=== PATIENT | male | born 1950 | race Caucasian/White ===

== ENCOUNTER → 2016-06-24 | Outpatient (CLI) | payer OTHER ==
[2016-06-24 13:38] LABS: HEMATOCRIT 44.8 % (42-52); MEAN CELL VOLUME 87.8 fL (80-100); MEAN CORPUSCULAR HEMOGLOBIN 29.8 pg (25-34); MEAN CORPUSCULAR HGB CONC 33.9 g/dl (32-36); MEAN PLATELET VOLUME 10.3 fL (7.4-10.4); PLATELET COUNT 232 K/uL (130-400); WHITE BLOOD COUNT 5.39 K/uL (4.8-10.8)
[2016-06-24 13:41] LABS: BLOOD UREA NITROGEN 20 mg/dl (7-18); BUN/CREATININE RATIO 21.2 (10-20); CALCIUM 9.2 mg/dl (8.5-10.1); CARBON DIOXIDE 29 mmol/L (21-32); CHLORIDE 103 mmol/L (98-107); CREATININE 0.93 mg/dl (0.60-1.40); GLUCOSE 88 mg/dl (70-99); POTASSIUM 4.1 mmol/L (3.5-5.1); SODIUM 139 mmol/L (136-145)
== END | disposition home or self-care (01) ==
LOC: C.LABMFLN 08:57
PROVIDERS: ATTEND Internal Medicine Cardiovascular Disease
DX: I48.91 Unspecified atrial fibrillation (principal); I10 Essential (primary) hypertension; I42.9 Cardiomyopathy, unspecified; I50.22 Chronic systolic (congestive) heart failure; I25.10 Atherosclerotic heart disease of native coronary artery without angina pectoris

== ENCOUNTER → 2017-01-13 | Outpatient (CLI) | payer OTHER ==
[2017-01-13 13:34] LABS: HEMATOCRIT 44.7 % (42-52); MEAN CELL VOLUME 89.2 fL (80-100); MEAN CORPUSCULAR HEMOGLOBIN 29.3 pg (25-34); MEAN CORPUSCULAR HGB CONC 32.9 g/dl (32-36); MEAN PLATELET VOLUME 10.3 fL (7.4-10.4); PLATELET COUNT 229 K/uL (130-400); RED BLOOD COUNT 5.01 M/uL (4.7-6.1); WHITE BLOOD COUNT 6.19 K/uL (4.8-10.8)
[2017-01-13 14:07] LABS: BLOOD UREA NITROGEN 9 mg/dl (7-18); BUN/CREATININE RATIO 12.7 (10-20); CALCIUM 8.7 mg/dl (8.5-10.1); CARBON DIOXIDE 26 mmol/L (21-32); CHLORIDE 108 mmol/L (98-107); CREATININE 0.73 mg/dl (0.60-1.40); GLUCOSE 87 mg/dl (70-99); POTASSIUM 3.9 mmol/L (3.5-5.1); SODIUM 141 mmol/L (136-145)
== END | disposition home or self-care (01) ==
LOC: C.LABMFLN 08:04
PROVIDERS: ATTEND Internal Medicine Cardiovascular Disease
DX: I10 Essential (primary) hypertension (principal); I48.91 Unspecified atrial fibrillation

== ENCOUNTER → 2017-08-11 | Outpatient (CLI) | payer OTHER ==
[2017-08-11 12:33] LABS: HEMATOCRIT 45.3 % (42-52); HEMOGLOBIN 15.4 g/dL (14.0-18.0); MEAN CELL VOLUME 89.2 fL (80-100); MEAN CORPUSCULAR HEMOGLOBIN 30.3 pg (25-34); MEAN PLATELET VOLUME 10.8 fL (7.4-10.4); PLATELET COUNT 237 K/uL (130-400); RED CELL DISTRIBUTION WIDTH CV 13.1 % (11.5-14.5); RED CELL DISTRIBUTION WIDTH SD 42.8 fL (36.4-46.3)
[2017-08-11 13:41] LABS: ALT/SGPT 29 U/L (12-78); AST/SGOT 20 U/L (15-37); BLOOD UREA NITROGEN 12 mg/dl (7-18); CARBON DIOXIDE 25 mmol/L (21-32); CHOLESTEROL 188 mg/dl (0-200); CREATININE 0.88 mg/dl (0.60-1.40); GLUCOSE 94 mg/dl (70-99); POTASSIUM 3.6 mmol/L (3.5-5.1); SODIUM 137 mmol/L (136-145)
[2017-08-11 13:44] LABS: LDL CHOLESTEROL CALCULATED 106 mg/dl
== END ==
LOC: C.LABMFLN 08:16
PROVIDERS: ATTEND Internal Medicine Cardiovascular Disease
DX: I48.91 Unspecified atrial fibrillation (principal); I11.0 Hypertensive heart disease with heart failure; I42.9 Cardiomyopathy, unspecified; I50.22 Chronic systolic (congestive) heart failure; I25.10 Atherosclerotic heart disease of native coronary artery without angina pectoris

== ENCOUNTER 2022-02-25 13:57 | Inpatient (IN) ==
[2022-02-25] MEDS ORDERED: ONDANSETRON INJ 2 MG/ML 2 ML VIAL IV STA (14:25)
[2022-02-25] MEDS ORDERED: SODIUM CHLORIDE 0.9% 1000ML 1,000 ML IV ONE (14:25)
[2022-02-25] MEDS ORDERED: HYDROmorphone INJ 1 MG/ML SYRINGE IV STA ×2 (14:25→16:34)
--- NOTE | 2022-02-25 14:29 | Emergency Department Note ---
Impression & Plan Cancer-related breakthrough pain, Rectal cancer, Abscess of rectum, Acute dehydration ED Provider Note Name: HERMAN GAYLE Jr Age: 71 Sex: M Arrives Via: Walk-In Informant: Patient,, daughter ED Provider: Jameson Clay MD Chief Complaint: Cancer pain Impression: As per impressions above Medical Decision Making: Very pleasant 71-year-old gentleman diagnosed with rectal cancer little over a year ago had a diverting colostomy at that time. Over the last few months increasing pain despite previous radiation and then this being a second round of chemotherapy. Patient arrives dehydrated malnourished and quite uncomfortable appearing. Does admit that he has not had normal bowel outs throughout the day as well as the fact that he has been having some drainage from his rectum. I will note that rectal exam reveals no concerning abscess externally. Laboratory work-up obtained is mostly unremarkable. He was given a few rounds of IV narcotics with some improvement in his pain and actually able to close his eyes for a little bit. He did get a CT scan of the abdomen pelvis with IV contrast. This reveals extensive metastatic disease which does appear worsening in some areas. There is also a noted fistulizing rectal infection/mass which is likely the cause of this drainage. At this point I do not think that this will be surgically managed and I did discuss it briefly with general surgery who was in agreement with that at this time. For now we will start her on some IV antibiotics but the primary issue is clear that he needs to come in for better pain control and further discussion on what the next best steps will be for him. He and daughter are comfortable this plan. Hospitalist was consulted for further management. Prior Medical Record and Triage/Nursing Notes reviewed by Me Additional history obtained from chart and daughter Differentials:Cancer related pain, infection, obstruction, dehydration, el ectrolyte imbalance, pancreatitis, aortic pathology amongst many other pathologies considered. Vital Signs: reviewed and remarkable for no significant abnormalities Interventions: Normal saline bolus IV, Dilaudid 1 mg IV x2, Zofran IV, Zosyn IV Labs:Reviewed and remarkable for no significant abnormalities Imaging:CT imaging the abdomen pelvis reveals expanding tumor burden, fistulizing abscess/mass in the rectum amongst other findings see radiologist report on chart Consults:Dr Polo HERNANDEZ Hospitalist. Rocio GIBBONS via phone - unlikely surgical management of abscess, agreed with initial abx Plan: Disposition:Hospitalization. Condition: Fair History of Present Illness:71-year-old gentleman arrives for evaluation of abdominal and rectal pain. Patient notes a history of rectal cancer with metastasis throughout abdomen and. Over the last 3 months he has been having increasing abdominal and rectal pain. Last few days it is rapidly worsened. He is on Oxy IR every 4 hours as well as a fentanyl patch. Previously tried tram adol without improvement. He notes in the last day no bowel outs into his ostomy. He previously had radiation therapy and is now on his second round of chemotherapy most recently 7 days ago. Notes mildly associated nausea. He gets lightheaded with standing and has not been eating for the last few days. Notes decreased urinary output because he has not been drinking much. No fevers, chills, chest pain, shortness of breath, syncope, headache, neck pain or other concerning signs or symptoms. No falls or trauma. Oxy IR and fentanyl did not help with pain. Patient notes some periodic drainage that is light from the rectum but this is not regular. ROS: See above HPI for pertinent positives & negatives. A total of 10 systems reviewed and were otherwise negative. Past Medical History:See Below Past Surgical History:See Below Family History:See Below Social History:See Below Home Medications:See Below Allergies:nkda Vitals:Blood Pressure: 114/73, Pulse 99, RR 20, T 36.9C, O2 97% on RA Physical Exam: GENERAL: Patient is unwell/tired/dehydrated appearing and in mild distress. EYES: No scleral icterus, unremarkable pupils. ENT: Mucous membranes dry, no nasal congestion. NECK: No masses appreciated, nomeningismus, trachea is midline. RESPIRATORY: No dyspnea. Clear to auscultation and equal bilaterally. No wheeze, no rhonchi. CARDIOVASCULAR: Regular rate and rhythm.No murmurs, rubs, gallops appreciated. GASTROINTESTINAL: Ostomy mid left abdomen with small amount stool at ostomy but not any in bag. Otherwise abdomen soft, non-tender, no peritonitis.Bowel sounds positive.No masses appreciated. BACK: No midline tenderness, no CVA tenderness EXTREMITIES: Normal motion all extremities, no cyanosis, no edema. NEUROLOGIC: Alert and oriented, no acute motor or sensory deficits, no focal weakness, cranial nerves grossly intact. SKIN: No rash, no jaundice, no diaphoresis. PSYCH: Appropriate GCS: 15 ED Course: Times/Reassessments: Patient gradually becoming more comfortable stable and actually able to close his eyes for a little while. Jameson Clay MD Past Med/Surg History Medical History Alcoholism Quit 2014 Atrial fibrillation status post cardioversion Cardioversion with amiodarone 2014 On warfarin daily--follows with Dr. Dominguez CAD (coronary artery disease) Nonobstructive per 2014 cardiac cath per cardio records CHF (congestive heart failure) Dyslipidemia Hearing deficit Hypertension care home (current) use of anticoagulants Rectal adenocarcinoma (01/26/21) Reason for port placement Thrombus of left atrial appendage Noted in 2014 - on Warfarin since that time Surgical History History of cardiac cath (~2014) no stents History of oral surgery Hx of colonoscopy Port-A-Cath in place (03/12/21) Access port placement. Dr. Nogueira 03/12/21 S/P colostomy Diagnostic laparoscopy, laparoscopic diverting loop sigmoid colostomy on 01/30/[address] 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 Required: No Beliefs That Will Affect Care: None marital status: Current Living Situation: Alone Current Living Situation Comment: Lives alone in 2 story house, daughter lives close current occupational status: retired current occupation: [employer] work How many Children do You have: 1 Other Information That Helps Us Care for You: No Feels Safe at Home: Yes Safety Concerns: Feels Safe At This Time Childhood Exposure to Second-Hand Smoke: No caffeine: No during the past year weight has: decreased > 10 lbs Seatbelt Use: never Assistive Devices: None Allergies Allergies Allergy/AdvReac Type Severity Reaction Status Date / Time No Known Allergies Allergy Verified 02/25/22 15:12 Home Meds Home Medications Medication Instructions Recorded Confirmed acetaminophen 325 mg tablet 650 mg PO Q6H PRN Pain 03/01/21 02/25/22 (Tylenol) [id number] C-Mn 500 1 cap PO DAILY 09/04/21 02/25/22 mg-400 mg capsule (Glucosamine Chondroitin Maximum Strength) ondansetron HCl 8 mg tablet 8 mg PO Q8H PRN NAUSEA/VOMITING 09/04/21 02/25/22 prochlorperazine maleate 10 mg 10 mg PO Q6H PRN NAUSEA/VOMITING 09/04/21 02/25/22 tablet (Compazine) atorvastatin 10 mg tablet 10 mg PO 3XWK 02/25/22 02/25/22 fentanyl 25 mcg/hr transdermal 25 mcg transdermal .Q3DAYS 02/25/22 02/25/22 patch nystatin 100,000 unit/gram topical 1 applic topical BID PRN Skin 02/25/22 02/25/22 powder Irritation oxycodone 5 mg tablet 5 mg PO .Q4-6HR PRN Pain 02/25/22 02/25/22 silver sulfadiazine 1 % topical 1 applic topical BID PRN Skin 02/25/22 02/25/22 cream (Silvadene) Irritation Previous Rx's Medication Instructions Recorded furosemide 40 mg tablet 40 mg PO QAM #90 tabs 04/02/21 spironolactone 25 mg tablet 25 mg PO DAILY #90 tabs 04/02/21 apixaban 5 mg tablet (Eliquis) 5 mg PO BID #180 tabs 10/02/21 lisinopril 5 mg tablet 5 mg PO DAILY #90 tabs 02/25/22 metoprolol succinate 200 mg 200 mg PO QAM #90 tabs 02/25/22 tablet,extended release 24 hr Results & Data (ED) Vital Signs Vital Signs - 24 hr 02/25/22 19:00 02/25/22 19:38 02/25/22 20:00 Temperature 36.6 C Temperature Source Oral Pulse Rate 70 Pulse Rate [Finger] 65 64 Pulse Rhythm [Finger] Regular Regular Pulse Strength [Finger] Normal Normal Respiratory Rate 16 19 18 Respiratory Effort / Characteristics Non-Labored Non-Labored Respiratory Depth Normal Normal Respiratory Pattern Regular Regular Blood Pressure 119/65 Blood Pressure [Right Arm] 119/65 121/70 Blood Pressure Mean [Right Arm] 83 87 Blood Pressure Position [Right Arm] Lying Sitting Pulse Oximetry 98 98 98 Oxygen Delivery Method Room Air Room Air Laboratory Data Result diagrams: 02/26/22 09:54 02/26/22 09:54 Lab Results 02/25/22 02/25/22 02/25/22 Range/Units 14:55 14:55 15:06 WBC 3.38 L (4.8-10.8) K/ul RBC 3.95 L (4.63-6.08) M/uL Hgb 11.8 L (14.0-18.0) g/dl POC Hgb 11.9 L (14.0-18.0) g/dl Hct 34.7 L (40.1-51.0) % POC Hct 35 L (42-52) % MCV 87.8 (80.0-100.0) fL MCH 29.9 (25.0-34.0) pg MCHC 34.0 (32.0-36.0) g/dL RDW Std Deviation 40.6 (36.4-46.3) fL RDW Coeff of Prashant 13.1 (11.5-14.5) % Plt Count 261 (130-400) K/uL MPV 8.9 L (9.4-12.4) fL Immature Gran % (Auto) 0.6 % Neut % (Auto) 72.7 % Lymph % (Auto) 16.6 % Fajardo % (Auto) 8.3 % Eos % (Auto) 1.5 % Baso % (Auto) 0.3 % Neut # (Auto) 2.46 (1.4-6.5) K/uL Lymph # (Auto) 0.56 L (1.2-3.4) K/uL Fajardo # (Auto) 0.28 (0.24-0.82) K/uL Eos # (Auto) 0.05 (0-0.50) K/uL Baso # (Auto) 0.01 (0-0.2) K/uL Immature Gran # (Auto) 0.02 (0.00-0.02) K/uL POC Sodium 132 L (135-144) mmol/L Sodium 132 L (136-145) mmol/L POC Potassium 4.0 (3.3-5.0) mmol/L Potassium 4.0 (3.5-5.1) mmol/L POC Chloride 96 L (101-112) mmol/L Chloride 98 (98-107) mmol/L Carbon Dioxide 27 (21-32) mmol/L POC Total CO2 25 (24-31) mmol/L Anion Gap 7 (3-11) POC Anion Gap 16.0 (16-25) mmol/L POC BUN 16 (7-18) mg/dl BUN 16 (6-23) mg/dl Creatinine 0.73 (0.6-1.4) mg/dl POC Creatinine 0.8 (0.6-1.3) mg/dl Est Cr Clr Drug Dosing 90.8 ml/min Est GFR ( Amer) 106.7 ml/min Est GFR (Non-Af Amer) 92.0 ml/min BUN/Creatinine Ratio 21.9 H (10-20) Glucose 100 H (70-99(Fasting)) mg/dl POC Glucose (other) 101 H (70-99) mg/dl Calcium 9.2 (8.5-10.1) mg/dl POC Ioniz Calcium Francisca 1.19 (1.12-1.32) mmol/l Magnesium 2.1 (1.7-2.4) mg/dl Total Bilirubin 0.4 (0.2-1.0) mg/dl Direct Bilirubin 0.1 (0-0.2) mg/dl AST 13 (13-39) U/L ALT 11 (7-52) U/L Alkaline Phosphatase 115 H (34-104) U/L Troponin I High Sens 6.1 (0-20) pg/ml Total Protein 7.0 (6.0-8.3) gm/dl Albumin 3.8 (3.4-5.0) gm/dl Lipase 32 (11-82) U/L Administered Medications Apixaban (Apixaban 5 Mg Tablet) 5 mg PO BID EARLENE Stop: 03/27/22 20:59 Last Admin: 02/26/22 07:47 Dose: 5 mg Documented By: Admin: 02/25/22 21:41 Dose: 5 mg Documented By: KENNY Furosemide (Furosemide 40 Mg Tab) 40 mg PO QA EARLENE Stop: 03/28/22 08:59 Last Admin: 02/26/22 07:47 Dose: 40 mg Documented By: JOCE Piperacillin Sod/Tazobactam (Sod 3.375 gm/ Dextrose) 115 mls @ 28.75 mls/hr IV Q8H [facility]; Protocol Stop: 03/07/22 19:59 Last Infusion: 02/26/22 16:56 Dose: 0 mls/hr Documented By: Admin: 02/26/22 12:40 Dose: 28.8 mls/hr Documented By: Infusion: 02/26/22 09:24 Dose: 0 mls/hr Documented By: Admin: 02/26/22 05:15 Dose: 28.8 mls/hr Documented By: Infusion: 02/26/22 01:03 Dose: 0 mls/hr Documented By: Admin: 02/25/22 21:38 Dose: 28.8 mls/hr Documented By: KENNY Lisinopril (Lisinopril 5 Mg Tab) 5 mg PO DAILY [facility] Stop: 03/28/22 08:59 Last Admin: 02/26/22 07:47 Dose: 5 mg Documented By: JOCE Metoprolol Succinate (Metoprolol Succ 50mg Ext Rel Tab) 200 mg PO QAM [facility] Stop: 03/28/22 08:59 Last Admin: 02/26/22 07:48 Dose: Not Given Documented By: JOCE Miscellaneous (Check Fentanyl Patch Placement) 1 each N/A QS [facility] Stop: 03/28/22 00:00 Last Admin: 02/26/22 15:24 Dose: 1 each Documented By: Admin: 02/26/22 07:48 Dose: 1 each Documented By: Admin: 02/25/22 23:13 Dose: 1 each Documented By: KENNY Morphine Sulfate (Morphine Sulfate 2 Mg/Ml Carp) 2 mg IV Q30M PRN PRN Reason: Pain or dyspnea Stop: 03/12/22 14:24 Last Admin: 02/26/22 14:54 Dose: 2 mg Documented By: JOCE Spironolactone (Spironolactone 25 Mg Tab) 25 mg PO DAILY [facility] Stop: 03/28/22 08:59 Last Admin: 02/26/22 07:48 Dose: 25 mg Documented By: JOCE Discontinued Medications Hydromorphone HCl (Hydromorphone Inj 1 Mg/Ml Syringe) 1 mg IV NOW STA Stop: 02/25/22 14:26 Last Admin: 02/25/22 14:55 Dose: 1 mg Documented By: BK Hydromorphone HCl (Hydromorphone Inj 1 Mg/Ml Syringe) 1 mg IV NOW STA Stop: 02/25/22 16:35 Last Admin: 02/25/22 17:15 Dose: 1 mg Documented By: BK Hydromorphone HCl (Hydromorphone Inj 0.5 Mg/0.5 Ml Syr) 0.5 mg IV Q4H PRN PRN Reason: Severe Pain Stop: 03/11/22 20:07 Last Admin: 02/26/22 12:44 Dose: 0.5 mg Documented By: Admin: 02/26/22 07:46 Dose: 0.5 mg Documented By: Admin: 02/26/22 01:48 Dose: 0.5 mg Documented By: Admin: 02/25/22 21:41 Dose: 0.5 mg Documented By: KENNY Sodium Chloride (Nss 1000ml) 1,000 mls @ 999 mls/hr IV .Q1H1M ONE Stop: 02/25/22 15:25 Last Infusion: 02/25/22 18:52 Dose: 0 mls/hr Documented By: Admin: 02/25/22 14:58 Dose: 999 mls/hr Documented By: BK Piperacillin Sod/Tazobactam Sod (Zosyn) 4.5 gm in 120 mls @ 240 mls/hr IV NOW ONE Stop: 02/25/22 17:03 Last Infusion: 02/25/22 17:44 Dose: 0 mls/hr Documented By: Admin: 02/25/22 17:14 Dose: 240 mls/hr Documented By: BK Lactated Ringer's (Lr) 1,000 mls @ 80 mls/hr IV .[id number] EARLENE Stop: 02/26/22 06:29 Last Infusion: 02/26/22 08:53 Dose: 0 mls/hr Documented By: Admin: 02/25/22 20:21 Dose: 80 mls/hr Documented By: KENNY Ioversol (Optiray 350 100ml) 89 ml IV ONCE ONE Stop: 02/25/22 15:45 Last Admin: 02/25/22 15:45 Dose: 89 ml Documented By: ELIZABETH Ondansetron HCl (Ondansetron Inj 2 Mg/Ml 2 Ml Vial) 4 mg IV NOW STA Stop: 02/25/22 14:26 Last Admin: 02/25/22 14:58 Dose: 4 mg Documented By: BK Imaging Data Radiologist's Impression: Abdomen/Pelvis CT 02/25/22 14:[address] WITH IV CONTRAST CT DOSE: 318.44 mGy.cm HISTORY: rectal cancer with worsening generalized abdominal pain. No ostomy stool x24 h TECHNIQUE: Multiaxial CT images of the abdomen and pelvis were performed following the use of intravenous contrast. A dose lowering technique was utilized adhering to the principles of ALARA. COMPARISON STUDY: Abdomen and pelvis CT FINDINGS: Interval development of multiple subcentimeter pulmonary nodules at the lung bases consistent with metastatic disease. Dominant nodule within the left lower lobe on image 31 measures 6 mm. Small focal area of bony erosion within the right T12 transverse process on image 103. This is new from the prior study and is concerning for metastatic disease. There are new scattered irregular hypodense lesions within the liver with the largest at the left he patic dome measuring 3 cm. This is consistent with hepatic metastatic disease. The gallbladder, spleen, right adrenal gland, and pancreas are unremarkable. No hydronephrosis. Stable partially calcified left renal cyst. Slight increase in size in a 2.6 cm left adrenal gland nodule, previously measuring 3 cm. The main portal vein is patent. No retroperitoneal lymphadenopathy. The left lower quadrant colostomy again noted. The bladder is mildly distended. The prostate gland remains enlarged. Slight decrease in size in the ill-defined left rectal mass compared to the prior study. However, there has been interval of a focal fistula tract within the anterior wall the rectum on image 419 with an adjacent 3.2 x 2.3 cm contains gas and fluid collection anterior to the rectum on image 543. This is consistent with a contained perforation/abscess. A few subcentimeter perirectal lymph nodes are again noted consistent with metastatic disease. Colonic diverticulosis. No evidence for acute diverticulitis. Moderate well-formed stool within the colon. No evidence for bowel obstruction. Normal appendix. Normal caliber abdominal aorta. IMPRESSION: 1. Interval development of pulmonary and hepatic metastatic disease. 2. There is a 3.2 x 2.3 cm focal contained perforation/abscess within the anterior perirectal space secondary to a small fistulous tract within the anterior wall the rectum as described above. This is likely due to the u lcerating tumor at this location. 3. The rectal mass appears to have slightly decreased in size. Subcentimeter perirectal lymph nodes again noted. 4. Slight decrease in size in the left adrenal gland mass which measures 2.6 cm. 5. Focal erosion within the right T12 transverse process likely representing metastatic disease. 6. Additional findings as described above. ACT 112: Negative or not required by law. Electronically signed by: Pankaj Cantu M.D. 02/25/2022 4:11 PM Discharge Plan Visit Data Chief Complaint: Rectal Pain Stated Complaint: UNCONTROLLED RECTAL PAIN,STAGE 4 CANCER ED Provider: Jameson Clay Discharge Problem: Cancer-related breakthrough pain, Rectal cancer, Abscess of rectum, Acute dehydration Patient Disposition: Admitted As Inpatient Discharge Instructions Interventions: ED AMA/LWBS Discharge Assessment Last Done: 02/25/22 19:38
[2022-02-25 15:11] LABS: Basophils # (auto) 0.01 K/uL (0-0.2); Basophils % (auto) 0.3 %; Eosinophils # (auto) 0.05 K/uL (0-0.50); Eosinophils % (auto) 1.5 %; Hematocrit (blood only) 34.7 % (40.1-51.0); Hemoglobin 11.8 g/dl (14.0-18.0); Immature Granulocytes # (auto) 0.02 K/uL (0.00-0.02); Immature Granulocytes % (auto) 0.6 %; Lymphocytes # (auto) 0.56 K/uL (1.2-3.4); Lymphocytes % (auto) 16.6 %; Mean Corpuscular Hemoglobin 29.9 pg (25.0-34.0); Mean Corpuscular Volume 87.8 fL (80.0-100.0); Mean Platelet Volume 8.9 fL (9.4-12.4); Monocytes # (auto) 0.28 K/uL (0.24-0.82); Monocytes % (auto) 8.3 %; Neutrophils # (auto) 2.46 K/uL (1.4-6.5); Neutrophils % (auto) 72.7 %; Platelet Count 261 K/uL (130-400); RDW Coefficient of Variation 13.1 % (11.5-14.5); RDW Standard Deviation 40.6 fL (36.4-46.3); Red Blood Count 3.95 M/uL (4.63-6.08); White Blood Count 3.38 K/ul (4.8-10.8)
[2022-02-25 15:21] LABS: iSTAT Creatinine 0.8 mg/dl (0.6-1.3); iSTAT Hemoglobin 11.9 g/dl (14.0-18.0); iSTAT Ionized Calcium 1.19 mmol/l (1.12-1.32)
[2022-02-25 15:34] LABS: Albumin Level 3.8 gm/dl (3.4-5.0); BUN Creatinine Ratio 21.9 (10-20); Bilirubin Direct 0.1 mg/dl (0-0.2); Bilirubin,Total 0.4 mg/dl (0.2-1.0); Calcium 9.2 mg/dl (8.5-10.1); Creatinine Clr Calc Pharmacy 90.8 ml/min; Est GFR (African American) 106.7 ml/min; Magnesium 2.1 mg/dl (1.7-2.4)
[2022-02-25 15:41] LABS: Troponin I High Sensitivity 6.1 pg/ml (0-20)
[2022-02-25] MEDS ORDERED: OPTIRAY 350 100ml IV ONE (15:44)
--- NOTE | 2022-02-25 16:12 | CT Scan Report ---
ABDOMEN AND PELVIS CT WITH IV CONTRAST CT DOSE: 318.44 mGy.cm HISTORY: rectal cancer with worsening generalized abdominal pain. No ostomy stool x24 h TECHNIQUE: Multiaxial CT images of the abdomen and pelvis were performed following the use of intrave nous contrast. A dose lowering technique was utilized adhering to the principles of ALARA. COMPARISON STUDY: Abdomen and pelvis CT FINDINGS: Interval development of multiple subcentimeter pulmonary nodules at the lung bases consiste nt with metastatic disease. Dominant nodule within the left lower lobe on image 31 measures 6 mm. Sma ll focal area of bony erosion within the right T12 transverse process on image 103. This is new from the prior study and is concerning for metastatic disease. There are new scattered irregular hypodense lesions within the liver with the largest at the left hepatic dome measuring 3 cm. This is consisten t with hepatic metastatic disease. The gallbladder, spleen, right adrenal gland, and pancreas are unr emarkable. No hydronephrosis. Stable partially calcified left renal cyst. Slight increase in size in a 2.6 cm left adrenal gland nodule, previously measuring 3 cm. The main portal vein is patent. No ret roperitoneal lymphadenopathy. The left lower quadrant colostomy again noted. The bladder is mildly di stended. The prostate gland remains enlarged. Slight decrease in size in the ill-defined left rectal mass compared to the prior study. However, there has been interval of a focal fistula tract within th e anterior wall the rectum on image 419 with an adjacent 3.2 x 2.3 cm contains gas and fluid collecti on anterior to the rectum on image 543. This is consistent with a contained perforation/abscess. A fe w subcentimeter perirectal lymph nodes are again noted consistent with metastatic disease. Colonic di verticulosis. No evidence for acute diverticulitis. Moderate well-formed stool within the colon. No e vidence for bowel obstruction. Normal appendix. Normal caliber abdominal aorta. IMPRESSION: 1. Interval development of pulmonary and hepatic metastatic disease. 2. There is a 3.2 x 2.3 cm focal contained perforation/abscess within the anterior perirectal space s econdary to a small fistulous tract within the anterior wall the rectum as described above. This is l ikely due to the ulcerating tumor at this location. 3. The rectal mass appears to have slightly decreased in size. Subcentimeter perirectal lymph nodes a gain noted. 4. Slight decrease in size in the left adrenal gland mass which measures 2.6 cm. 5. Focal erosion within the right T12 transverse process likely representing metastatic disease. 6. Additional findings as described above. ACT 112: Negative or not required by law. Electronically signed by: Pankaj Cantu M.D. 02/25/2022 4:11 PM
[2022-02-25] MEDS ORDERED: PIPERACILLIN/TAZOBACTAM 4.5 GM/120 ML BAG IV ONE (16:34)
--- NOTE | 2022-02-25 17:28 | History & Physical Report ---
Date of Service February 25, 2022 Assessment & Plan (1) Rectal adenocarcinoma: Plan: - New burning rectal pain x7 days following chemotherapy. Recently starting on fentanyl patches and oxycodone without relief of pain. Presented with 10/10 pain, now 3/10 after IV Dilaudid. - Continue fentanyl patches and oxycodone with IV Dilaudid as needed. - Stage 3, s/p diverting colostomy, radiation, chemotherapy most recently 7 days ago. - CT A/P: contained perforation/abscess due to ulcerating tumor. Interval development of hepatic metastatic disease rectal mass slightly decreased in size, adrenal gland mass slightly decreased in size. Closure within the right T12 transverse process likely representing metastatic disease. - Case discussed with general surgery, do not feel surgical intervention warranted regarding potential abscess. - No evidence of bowel obstruction. There is a moderate amount of well-formed stool within the colon. - Previously loose stools 2/2, taking Imodium 3 times daily plus Lomotil as needed. - Order MiraLAX, IVF for hydration. - Palliative care consult placed to discuss pain management options moving forward. Will get surgery consult and start abx. Get cultures. (2) Atrial fibrillation status post cardioversion: Plan: - s/p cardioversion. Has remained in NSR. - Continue Eliquis twice daily, metoprolol 200 mg daily. (3) CAD (coronary artery disease): Plan: - Nonobstructive. Continue lisinopril, metoprolol, statin. (4) CHF (congestive heart failure): Plan: - With nonischemic cardiomyopathy likely 2/2 oh previous alcohol use disorder +/- A. fib. - Echo January 2021: Normal LV size and systolic function without wall motion abnormalities. EF 65%. No LVH. Grade 1 diastolic dysfunction of left ventricle. - Continue metoprolol, spironolactone, Lasix, lisinopril. Plan - Admit to med/surg. - SCDs, continue on Eliquis for VTE ppx. - Full Code. History of Present Illness Chief Complaint: Rectal pain x1 week Primary Care Provider: Emma Olivarez DO Rigoberto Gold is a 71-year-old male with metastatic colorectal cancer, CAD, diastolic HF and ischemic cardiomyopathy, and history of alcohol use disorder who is presenting today with worsening pain. 7 days ago, he underwent a round of chemotherapy and since then has developed burning pain sensation in his rectum. It is been incredibly comfortable, 10/10 at home and is unable to rest because of it. His oncologist released recently prescribed him a fentanyl patch and oxycodone immediate release which she has been taking every 4 hours with minimal alleviation of the pain. Due to the severity of his pain, he has not had much of an appetite and has been doing poorly with eating and drinking at home. He has an ostomy, without pain around the site, but does note decreased output which he attributes to poor intake. He has not had any fever or chills, melena or hematochezia, or abdominal pain. Upon arrival to the ED, he is mildly tachycardic otherwise vital signs within normal limits and stable. Labs significant for leukopenia and anemia, but fairly stable from previous labs. Tends to have a chronically low sodium, it is 132 today. Otherwise all labs within normal limits. CT of the abdomen and pelvis shows an interval development of pulmonary and hepatic metastatic disease, as well as a focal contained perforation/abscess in the anterior pararectal space, likely due to ulcerating tumor. Rectal mass and adrenal gland mass have decreased in size. There is focal erosion within the right T12 transverse process likely representing metastatic disease. Allergies Allergy/AdvReac Type Severity Reaction Status Date / Time No Known Allergies Allergy Verified 02/25/22 15:12 Home Medications Medication Instructions Recorded Confirmed Type acetaminophen 325 mg tablet 650 mg PO Q6H PRN Pain 03/01/21 02/25/22 History (Tylenol) furosemide 40 mg tablet 40 mg PO QAM #90 tabs 04/02/21 02/25/22 Rx spironolactone 25 mg tablet 25 mg PO DAILY #90 tabs 04/02/21 02/25/22 Rx [id number] C-Mn 500 1 cap PO DAILY 09/04/21 02/25/22 History mg-400 mg capsule (Glucosamine Chondroitin Maximum Strength) ondansetron HCl 8 mg tablet 8 mg PO Q8H PRN NAUSEA/VOMITING 09/04/21 02/25/22 History prochlorperazine maleate 10 mg 10 mg PO Q6H PRN NAUSEA/VOMITING 09/04/21 02/25/22 History tablet (Compazine) apixaban 5 mg tablet (Eliquis) 5 mg PO BID #180 tabs 10/02/21 02/25/22 Rx atorvastatin 10 mg tablet 10 mg PO 3XWK 02/25/22 02/25/22 History fentanyl 25 mcg/hr transdermal 25 mcg transdermal .Q3DAYS 02/25/22 02/25/22 History patch lisinopril 5 mg tablet 5 mg PO DAILY #90 tabs 02/25/22 02/25/22 Rx metoprolol succinate 200 mg 200 mg PO QAM #90 tabs 02/25/22 02/25/22 Rx tablet,extended release 24 hr nystatin 100,000 unit/gram topical 1 applic topical BID PRN Skin 02/25/22 02/25/22 History powder Irritation oxycodone 5 mg tablet 5 mg PO .Q4-6HR PRN Pain 02/25/22 02/25/22 History silver sulfadiazine 1 % topical 1 applic topical BID PRN Skin 02/25/22 02/25/22 History cream (Silvadene) Irritation Past Med/Surg History Medical History Alcoholism Quit 2014 Atrial fibrillation status post cardioversion Cardioversion with amiodarone 2014 On warfarin daily--follows with Dr. 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 Dr. Nogueira 03/12/21 S/P colostomy Diagnostic laparoscopy, laparoscopic diverting loop sigmoid colostomy on 01/30/[address] Concepc[place] [facility] [place] History Father , 68yo Alcoholism Hypertension Stroke Smoker Mother , 72yo COPD (chronic obstructive pulmonary disease) Heart disease Sister COPD (chronic obstructive pulmonary disease) Hypertension Sister Glaucoma Daughter Cardiomyopathy Heart disease Aunt Stroke Other No family history of adverse response to anesthesia Social History Smoking Status: Never smoker Tobacco Type: Smokeless Tobacco (Dip or Chew) Second Hand Exposure: Yes; Hx Alcohol Use: No Hx Substance Use: No (Quit drinking 07/22/2014) Preferred Language: German Communication Ability: Effective Tie Fastener Required: No Beliefs That Will Affect Care: None marital status: Current Living Situation: Alone Current Living Situation Comment: Sometimes his sister stays with him current occupational status: retired current occupation: [employer] work How many Children do You have: 1 Feels Safe at Home: Yes Childhood Exposure to Second-Hand Smoke: No caffeine: No during the past year weight has: decreased > 10 lbs Seatbelt Use: never Assistive Devices: Glasses Review of Systems Review of Systems: Constitutional: anorexia and increased fatigue x 1 week; no fever/chills, weakness, myalgias, night sweats Eyes: No diplopia, no worsening or blurred vision ENT: normal hearing, no trouble swallowing Respiratory: No cough, sputum, dyspnea at rest or on exertion Cardiovascular: No chest pain, tightness or palpitations Abdomen: burning rectal pain x 1 week with decreased otomy output x1 week; no abdominal pain, nausea, vomiting, or diarrhea : Denies dysuria, hematuria, increased urgency/frequency, urinary retention Musculoskeletal: No joint pain, calf pain, swelling Neurologic: No weakness, numbness/tingling, or balance problems Psychiatric: No anxiety or depression Skin: No rash or itch Physical Exam Physical Exam: General: awake, alert, no apparent distress Head: Normocephalic, atraumatic ENT: PERRL, EOMI, no pharyngeal exudate, mucous membranes moist Chest: Clear to auscultation, on room air, no adventitious breath sounds Cardiac: Regular rate and rhythm, no murmur, no JVD, normal peripheral pulses, good capillary refill Abdominal: LLQ ostomy empty, with parastomal hernia, unchanged; without surrounding erythema or edema; NABS x 4 quadrants, soft, nontender to palpation, no rebound, guarding or tenderness Extremities: Normal inspection, no peripheral edema or erythema, calfs nontender to palpation Psych: Normal mood and affect Neuro: AAO x 3, strength intact bilaterally and rated 5/5, no motor deficits, speech is clear, no peripheral sensory deficits Skin: no rash or erythema Results & Data Results & Data ([facility]) Vital Signs (Past 12 Hours) Vital Signs Temp Pulse Resp BP BP Pulse Ox O2 Del Method 02/25/22 15:58 15 110/61 96 Room Air 02/25/22 13:58 14 110/61 95 Room Air 02/25/22 14:03 36.9 C 99 H 20 114/73 97 Room Air Laboratory Results Abnormal lab results 02/25/22 02/25/22 02/25/22 Range/Units 14:55 14:55 15:06 WBC 3.38 L (4.8-10.8) K/ul RBC 3.95 L (4.63-6.08) M/uL Hgb 11.8 L (14.0-18.0) g/dl POC Hgb 11.9 L (14.0-18.0) g/dl Hct 34.7 L (40.1-51.0) % POC Hct 35 L (42-52) % MPV 8.9 L (9.4-12.4) fL Lymph # (Auto) 0.56 L (1.2-3.4) K/uL POC Sodium 132 L (135-144) mmol/L Sodium 132 L (136-145) mmol/L POC Chloride 96 L (101-112) mmol/L BUN/Creatinine Ratio 21.9 H (10-20) Glucose 100 H (70-99(Fasting)) mg/dl POC Glucose (other) 101 H (70-99) mg/dl Alkaline Phosphatase 115 H (34-104) U/L Diagnostic Findings Abdomen/Pelvis CT 02/25/22 14:[address] WITH IV CONTRAST CT DOSE: 318.44 mGy.cm HISTORY: rectal cancer with worsening generalized abdominal pain. No ostomy stool x24 h TECHNIQUE: Multiaxial CT images of the abdomen and pelvis were performed following the use of intravenous contrast. A dose lowering technique was utilized adhering to the principles of ALARA. COMPARISON STUDY: Abdomen and pelvis CT FINDINGS: Interval development of multiple subcentimeter pulmonary nodules at the lung bases consistent with metastatic disease. Dominant nodule within the left lower lobe on image 31 measures 6 mm. Small focal area of bony erosion within the right T12 transverse process on image 103. This is new from the prior study and is concerning for metastatic disease. There are new scattered irregular hypodense lesions within the liver with the largest at the left hepatic dome measuring 3 cm. This is consistent with hepatic metastatic disease. The gallbladder, spleen, right adrenal gland, and pancreas are unremarkable. No hydronephrosis. Stable partially calcified left renal cyst. Slight increase in size in a 2.6 cm left adrenal gland nodule, previously measuring 3 cm. The main portal vein is patent. No retroperitoneal lymphadenopathy. The left lower quadrant colostomy again noted. The bladder is mildly distended. The prostate gland remains enlarged. Slight decrease in size in the ill-defined left rectal mass compared to the prior study. However, there has been interval of a focal fistula tract within the anterior wall the rectum on image 419 with an adjacent 3.2 x 2.3 cm contains gas and fluid collection anterior to the rectum on image 543. This is consistent with a contained perforation/abscess. A few subcentimeter perirectal lymph nodes are again noted consistent with metastatic disease. Colonic diverticulosis. No evidence for acute diverticulitis. Moderate well-formed stool within the colon. No evidence for bowel obstruction. Normal appendix. Normal caliber abdominal aorta. IMPRESSION: 1. Interval development of pulmonary and hepatic metastatic disease. 2. There is a 3.2 x 2.3 cm focal contained perforation/abscess within the anterior perirectal space secondary to a small fistulous tract within the anterior wall the rectum as described above. This is likely due to the ulcerating tumor at this location. 3. The rectal mass appears to have slightly decreased in size. Subcentimeter perirectal lymph nodes again noted. 4. Slight decrease in size in the left adrenal gland mass which measures 2.6 cm. 5. Focal erosion within the right T12 transverse process likely representing metastatic disease. 6. Additional findings as described above. ACT 112: Negative or not required by law. Electronically signed by: Pankaj Cantu M.D. 02/25/2022 4:11 PM Code Status & VTE Plan Code Status Full Code. Supervising Physician Co-Signing Physician Notes I supervised Dahlia Red PA-C on this admission. I interviewed and examined the patient independently of her. The plan is as written in the note except for any following changes/exceptions: 71yo M w/ hx of rectal adenocarcinoma with worsening pain. CT scan with new "3.2 x 2.3 cm focal contained perforation/abscess within the anterior perirectal space secondary to a small fistulous tract within the anterior wall the rectum". Will get surgery consult and start abx. Get cultures. PG Care Time/CCT Total # of Minutes Spent Total Time Spent with Patient: Total time spent is greater than 50% in coordination of care (as documented) at patient's floor/unit and/or counseling patient: Coding Level of Care Code 11156 Initial Inpt Care Lvl 3 Diagnoses Rectal adenocarcinoma C20 Atrial fibrillation status post cardioversion I48.91 CAD (coronary artery disease) I25.10 CHF (congestive heart failure) I50.9
[2022-02-25] MEDS ORDERED: LACTATED RINGER'S 1,000 ML IV SCH (18:00)
[2022-02-25] MEDS ORDERED: SILVER SULFADIAZINE 1% CR 50 GM JAR TOP PRN (20:08)
[2022-02-25] MEDS ORDERED: ACETAMINOPHEN 325 MG TAB PO PRN (20:08)
[2022-02-25] MEDS ORDERED: HYDROmorphone INJ 0.5 MG/0.5 ML SYR IV PRN (20:08)
[2022-02-25] MEDS ORDERED: POLYETHYLENE (MIRALAX) 17 GM PACK PO PRN (20:08)
[2022-02-25] MEDS ORDERED: ONDANSETRON INJ 2 MG/ML 2 ML VIAL IV PRN (20:08)
[2022-02-25] MEDS ORDERED: MAGNESIUM HYDROXIDE SUSP 30 ML UDC PO PRN (20:08)
[2022-02-25] MEDS ORDERED: oxyCODONE HCL IR 5 MG TAB (IMMEDIATE RELEASE) PO PRN (20:08)
[2022-02-25] MEDS ORDERED: NON-FORMULARY MEDICATION (Ondansetron Hcl 8 mg tablet) PO PRN (20:08)
[2022-02-25] MEDS ORDERED: PROCHLORPERAZINE MALEATE 10 MG TAB PO PRN (20:08)
[2022-02-25] MEDS ORDERED: NYSTATIN POWDER 15GM BTL EXT PRN (20:08)
--- NOTE | 2022-02-25 21:31 | Surgery Consultation ---
Date of Consultation February 25, 2022 Assessment & Plan (1) Rectal adenocarcinoma: Patient has been admitted by the hospitalist service. We recommend proceeding as follows: Recommend continuing hydration with IV fluids Recommend continuing broad-spectrum antibiotics in form of Zosyn which has been initiated. The area in question on patient's CAT scan may represent either an abscess or necrotic tumor. Would recommend conservative treatment with IV fluids and antibiotics as noted above. If patient would require any type of surgical drainage he would need to be transferred to the center where he had his previous surgeries performed. Supervising Physician Co-Signing Physician Notes Patient discussed with VERONICA Stack, films reviewed, agree with above. 71 y/o male with metastatic rectal cancer s/p diverting colostomy, neoadjuvant rad/chemo, currently on chemo, last dose 7 days ago. Now with perirectal pain. CT with necrotic tumor vs. contained perf/abscess. Recommend abx, hold coumadin. Recommend discuss with colorectal surgeon tomorrow. If drainage needed, likely transrectal or percutaneous, not at this facility. History of Present Illness Reason for Consultation: Rectal abscess Attending Physician: Khanh Cuellar MD History of Present Illness This is a 71-year-old male with a history of metastatic colorectal cancer. Patient presented to the emergency department secondary to worsening rectal pain. The patient notes that he underwent chemotherapy approximately 7 days ago and since that time he developed some burning type pain in his rectum. He notes it has become increasingly uncomfortable over the past several days. Due to the severity of pain he presented to the emergency department. The patient denies any abdominal pain. He denies any nausea or vomiting. He denies any fevers, shakes, or chills. It is nowhere the mention that the patient has already had a GI tract diversion as he has an ostomy. In the emergency department patient had labs and imaging which I independent reviewed. A CT scan of the abdomen and pelvis showed the patient had pulmonary and hepatic metastatic disease. There is concern for 3.2 x 2.3 cm foci of contained perforation or abscess in the anterior perirectal space. A CBC revealed white blood cell count was 3.3. Hemoglobin and hematocrit were 11.8 and 34.7. Platelet count was 261,000. Chemistry profile showed sodium was 132 with a normal potassium. BUN and creatinine were both within the normal range. A COVID test was noted be negative. Since arrival to the emergency department the patient has been receiving antibiotics in form of Zosyn and is receiving intravenous fluids. He is also been provided with analgesics. At the time of my interview the patient was resting comfortably in bed in no distress. Allergies Allergy/AdvReac Type Severity Reaction Status Date / Time No Known Allergies Allergy Verified 02/25/22 15:12 Home Medications Medication Instructions Recorded Confirmed Type acetaminophen 325 mg tablet 650 mg PO Q6H PRN Pain 03/01/21 02/25/22 History (Tylenol) furosemide 40 mg tablet 40 mg PO QAM #90 tabs 04/02/21 02/25/22 Rx spironolactone 25 mg tablet 25 mg PO DAILY #90 tabs 04/02/21 02/25/22 Rx iwrebvqxtmk-[id number]-rvr C-Mn 500 1 cap PO DAILY 09/04/21 02/25/22 History mg-400 mg capsule (Glucosamine Chondroitin Maximum Strength) ondansetron HCl 8 mg tablet 8 mg PO Q8H PRN NAUSEA/VOMITING 09/04/21 02/25/22 History prochlorperazine maleate 10 mg 10 mg PO Q6H PRN NAUSEA/VOMITING 09/04/21 02/25/22 History tablet (Compazine) apixaban 5 mg tablet (Eliquis) 5 mg PO BID #180 tabs 10/02/21 02/25/22 Rx atorvastatin 10 mg tablet 10 mg PO 3XWK 02/25/22 02/25/22 History fentanyl 25 mcg/hr transdermal 25 mcg transdermal .Q3DAYS 02/25/22 02/25/22 History patch lisinopril 5 mg tablet 5 mg PO DAILY #90 tabs 02/25/22 02/25/22 Rx metoprolol succinate 200 mg 200 mg PO QAM #90 tabs 02/25/22 02/25/22 Rx tablet,extended release 24 hr nystatin 100,000 unit/gram topical 1 applic topical BID PRN Skin 02/25/22 02/25/22 History powder Irritation oxycodone 5 mg tablet 5 mg PO .Q4-6HR PRN Pain 02/25/22 02/25/22 History silver sulfadiazine 1 % topical 1 applic topical BID PRN Skin 02/25/22 02/25/22 History cream (Silvadene) Irritation Patient History Medical History Alcoholism Quit 2014 Atrial fibrillation status post cardioversion Cardioversion with amiodarone 2014 On warfarin daily--follows with Dr. 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 Dr. Nogueira 03/12/21 S/P colostomy Diagnostic laparoscopy, laparoscopic diverting loop sigmoid colostomy on 01/30/[address] Concepcion at [facility] [place] Family History Father , 68yo Alcoholism Hypertension Stroke Smoker Mother , 72yo COPD (chronic obstructive pulmonary disease) Heart disease Sister COPD (chronic obstructive pulmonary disease) Hypertension Sister Glaucoma Daughter Cardiomyopathy Heart disease Aunt Stroke Other No family history of adverse response to anesthesia Social History Smoking Status: Never smoker Tobacco Type: Smokeless Tobacco (Dip or Chew) Second Hand Exposure: Yes; Hx Alcohol Use: No Hx Substance Use: No (Quit drinking 07/22/2014) Preferred Language: Ivorian Communication Ability: Effective Fashion Journalist Required: No Beliefs That Will Affect Care: None marital status: Current Living Situation: Alone Current Living Situation Comment: Sometimes his sister stays with him current occupational status: retired current occupation: [employer] work How many Children do You have: 1 Feels Safe at Home: Yes Childhood Exposure to Second-Hand Smoke: No caffeine: No during the past year weight has: decreased > 10 lbs Seatbelt Use: never Assistive Devices: Glasses Review of Systems Constitutional: no fever and no chills Eyes: no eye pain Ear, Nose, Mouth, Throat: no ear pain Respiratory: no cough and no dyspnea Cardiovascular: no chest pain Gastrointestinal: + abdominal pain and + problem reported (Rectal pain); no nausea and no vomiting Genitourinary: no dysuria Musculoskeletal: no back pain Integumentary: no rash Neurologic: no localized weakness Physical Exam Physical Exam: The patient's rectum was examined. Externally there are no areas of erythema, open areas, or drainage. There are no areas of fluctuance. Patient's rectum was tender to palpation on the outside. I was unable to perform a digital rectal exam due to discomfort the patient was experiencing. No crepitus was noted in the soft tissue. Constitutional: WD/WN, vitals as above Eyes: no conjunctival abnormality ENMT: Ears: no hearing impairment and no external ear abnormality Mouth: no oropharynx abnormality Neck: trachea midline Respiratory: normal respiratory effort; no respiratory distress and no labored breathing Cardiovascular: Rate/Rhythm: regular rate and regular rhythm Gastrointestinal (Abdomen): Abdomen is soft, nondistended, nonrigid, nontender to palpation. The patient had an ostomy present on the left side of his abdomen. The ostomy was pink and viable. There is a large amount of brown stool in the collection bag. Musculoskeletal: No calf tenderness Skin: no rashes Neurologic: moves all extremities Psychiatric: A+Ox3, euthymic affect Results & Data ([facility]) Vital Signs (Past 12 Hours) Vital Signs Temp Pulse Pulse Resp BP BP Pulse Ox 02/25/22 19:38 70 19 119/65 98 02/25/22 19:00 65 16 119/65 98 02/25/22 17:00 70 20 123/67 99 02/25/22 15:58 15 110/61 96 02/25/22 13:58 14 110/61 95 02/25/22 14:03 36.9 C 99 H 20 114/73 97 O2 Del Method 02/25/22 19:38 02/25/22 19:00 Room Air 02/25/22 17:00 Room Air 02/25/22 15:58 Room Air 02/25/22 13:58 Room Air 02/25/22 14:03 Room Air PG Care Time/CCT Total # of Minutes Spent Total Time Spent with Patient: Total time spent is greater than 50% in coordination of care (as documented) at patient's floor/unit and/or counseling patient: Coding Level of Care Code 08030 Inpt Consult Level 5 Diagnoses Rectal adenocarcinoma C20
[2022-02-25] MEDS: PIPERACILLIN/TAZOBACTAM 3.375 GM in DEXTROSE 5% 100 ML IV SCH (21:38)
[2022-02-25] MEDS: APIXABAN 5 MG TABLET PO SCH (21:41)
[2022-02-25] MEDS: HYDROmorphone INJ 0.5 MG/0.5 ML SYR IV PRN (21:41)
[2022-02-25] MEDS: CHECK fentaNYL PATCH PLACEMENT SCH (23:13)
[2022-02-26] MEDS: HYDROmorphone INJ 0.5 MG/0.5 ML SYR IV PRN ×3 (01:48→12:44)
[2022-02-26] MEDS: PIPERACILLIN/TAZOBACTAM 3.375 GM in DEXTROSE 5% 100 ML IV SCH ×3 (05:15→19:46)
[2022-02-26] MEDS: APIXABAN 5 MG TABLET PO SCH (07:47)
[2022-02-26] MEDS: lisinopril 5 MG TAB PO SCH (07:47)
[2022-02-26] MEDS: FUROSEMIDE 40 MG TAB PO SCH (07:47)
[2022-02-26] MEDS: METOPROLOL SUCC 50MG EXT REL TAB PO SCH (07:48)
[2022-02-26] MEDS: SPIRONOLACTONE 25 MG TAB PO SCH (07:48)
[2022-02-26] MEDS: CHECK fentaNYL PATCH PLACEMENT SCH ×2 (07:48→15:24)
--- NOTE | 2022-02-26 08:36 | Palliative Care Consultation ---
Date of Consultation February 26, 2022 Assessment & Plan (1) Rectal pain: His description of pain is consistent with neuropathic pain. We discussed generally limited efficacy of opioids for neuropathic pain. Will add topical lidocaine gel to sacrum which is the area he points to when describing pain. Heating pad ordered per his request. We also discussed adding gabapentin at bedtime. Continue prn hydromorphone and fentanyl patch. Would be cautious with increasing fentanyl patch given limited efficacy of opioids for neuropathic pain. His prn oxycodone dose had been 5mg which could be increased to 10mg every four hours as needed for pain given the dose of long acting opioid. He is agreeable to anything that may relieve his pain. Discussed with RN. (2) Palliative care encounter: Mr. Gold has a good understanding of his illness. He finds the most recent chemotherapy to be more difficult to tolerate compared to prior treatment but is committed to continuing treatment. His pain and discomfort limited discussion about goals of care but I did ask him if there were any limits to the care that he would want and he told me that he did not feel like there were any limits at this time. He told me that he doesn't " want to just up and ". He tells me that he is a very independent determined person and wants things to be done his way. He is a full code. He tells me that his daughter, Sarina Gold, is his surrogate decision maker. I asked him if he had discussed his wishes with Sarina. He told me that she knows him well and would know what to do. During our discussion, he told me that he lives alone, though he does have family and friend support nearby. We talked briefly about what he would do if he were not able to care for himself at home and his reply was "that can't happen". (3) Rectal adenocarcinoma: History of Present Illness Reason for Consultation: goals of care Requesting Physician: Dr. Richards Attending Physician: Tapan Richards History of Present Illness 71 yo gentleman diagnosed with Stage III rectal cancer approximately a year ago. He underwent diverting colostomy with chemoradiation therapy and currently is receiving chemotherapy. In November of this year, he was found to have disease progression with pulmonary and hepatic nodules. He has had pelvic lymphadenopathy and an adrenal mass which show some slight decrease in size on recent imaging. CT on admission shows 3.2x2.3 cm focal perforation/abscess in anterior perirectal space and new focal erosion on T12. He presented with severe rectal pain that has been progressing. He was recently started on fentanyl 12mcg, increased to 25 mcg with oxycodone prn. He is uncertain exactly when this was started. He describes a severe, stabbing, burning pain "like a hot poker" in his rectum. Pain is not constant but does not seem to have any precipitating factors. Pain does not radiate. He has been using pain medication, McNess ointment and a heating pad but this has been less and less effective. He does not have any stool per rectum but does have some rectal discharge. Since admission, he has had prn IV hydromorphone which is somewhat effective. Allergies Allergy/AdvReac Type Severity Reaction Status Date / Time No Known Allergies Allergy Verified 02/25/22 15:12 Home Medications Medication Instructions Recorded Confirmed Type acetaminophen 325 mg tablet 650 mg PO Q6H PRN Pain 03/01/21 02/25/22 History (Tylenol) furosemide 40 mg tablet 40 mg PO QAM #90 tabs 04/02/21 02/25/22 Rx spironolactone 25 mg tablet 25 mg PO DAILY #90 tabs 04/02/21 02/25/22 Rx cmseiiuuyxr-deurbtcer-nwn C-Mn 500 1 cap PO DAILY 09/04/21 02/25/22 History mg-400 mg capsule (Glucosamine Chondroitin Maximum Strength) ondansetron HCl 8 mg tablet 8 mg PO Q8H PRN NAUSEA/VOMITING 09/04/21 02/25/22 History prochlorperazine maleate 10 mg 10 mg PO Q6H PRN NAUSEA/VOMITING 09/04/21 02/25/22 History tablet (Compazine) apixaban 5 mg tablet (Eliquis) 5 mg PO BID #180 tabs 10/02/21 02/25/22 Rx atorvastatin 10 mg tablet 10 mg PO 3XWK 02/25/22 02/25/22 History fentanyl 25 mcg/hr transdermal 25 mcg transdermal .Q3DAYS 02/25/22 02/25/22 History patch lisinopril 5 mg tablet 5 mg PO DAILY #90 tabs 02/25/22 02/25/22 Rx metoprolol succinate 200 mg 200 mg PO QAM #90 tabs 02/25/22 02/25/22 Rx tablet,extended release 24 hr nystatin 100,000 unit/gram topical 1 applic topical BID PRN Skin 02/25/22 02/25/22 History powder Irritation oxycodone 5 mg tablet 5 mg PO .Q4-6HR PRN Pain 02/25/22 02/25/22 History silver sulfadiazine 1 % topical 1 applic topical BID PRN Skin 02/25/22 02/25/22 History cream (Silvadene) Irritation Patient History Medical History Alcoholism Quit 2014 Atrial fibrillation status post cardioversion Cardioversion with amiodarone 2014 On warfarin daily--follows with Dr. 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 Dr. Nogueira 03/12/21 S/P colostomy Diagnostic laparoscopy, laparoscopic diverting loop sigmoid colostomy on 01/30/[address] Concepcion at [facility] [place], [place] Family History Father , 68yo Alcoholism Hypertension Stroke Smoker Mother , 72yo COPD (chronic obstructive pulmonary disease) Heart disease Sister COPD (chronic obstructive pulmonary disease) Hypertension Sister Glaucoma Daughter Cardiomyopathy Heart disease Aunt Stroke Other No family history of adverse response to anesthesia Social History Smoking Status: Never smoker Tobacco Type: Smokeless Tobacco (Dip or Chew) Second Hand Exposure: Yes; Hx Alcohol Use: No Hx Substance Use: No Preferred Language: South African Communication Ability: Effective Urban Forester Required: No Beliefs That Will Affect Care: None marital status: Current Living Situation: Alone Current Living Situation Comment: Lives alone in 2 story house, daughter lives close current occupational status: retired current occupation: [employer] How many Children do You have: 1 Other Information That Helps Us Care for You: No Feels Safe at Home: Yes Safety Concerns: Feels Safe At This Time Childhood Exposure to Second-Hand Smoke: No caffeine: No during the past year weight has: decreased > 10 lbs Seatbelt Use: never Assistive Devices: None Review of Systems Review of Systems: ESAS Pain 3/3 Dyspnea 0/3 Nausea 0/3 Anorexia 2/3 Fatigue 1/3 Drowsiness 0/3 PPS 50% Physical Exam Constitutional: + thin and + frail appearing ENMT: Mouth: oral mucous membranes not dry Respiratory: normal respiratory effort; no labored breathing Cardiovascular: Rate/Rhythm: regular rate and regular rhythm Gastrointestinal (Abdomen): colostomy with small amount of brown liquid stool no external rectal mass, small excoriated perirectal area approximately 1 cm Musculoskeletal: Extremities: + muscle atrophy Skin: warm and dry Neurologic: Speech / Cognition: normal cognition Psychiatric: Orientation: oriented x 3 Affect: + anxious affect Genitourinary: continent Results & Data ([facility]) Vital Signs (Past 12 Hours) Vital Signs Temp Pulse Resp BP Pulse Ox O2 Del Method 02/26/22 07:18 97.3 F L 57 L 18 120/69 99 Room Air PG Care Time/CCT Total # of Minutes Spent Total Time Spent: 63 Total Time Spent with Patient: Total time spent is greater than 50% in coordination of care (as documented) at patient's floor/unit and/or counseling patient:symptom management, surrogate decision maker, goals of care Coding Level of Care Code 24194 Initial Inpt Care Lvl 2 Diagnoses Rectal pain K62.89 Palliative care encounter Z51.5 Rectal adenocarcinoma C20
[2022-02-26 10:25] LABS: Basophils # (auto) 0.01 K/uL (0-0.2); Basophils % (auto) 0.3 %; Eosinophils # (auto) 0.04 K/uL (0-0.50); Eosinophils % (auto) 1.3 %; Hematocrit (blood only) 32.7 % (40.1-51.0); Hemoglobin 11.3 g/dl (14.0-18.0); Immature Granulocytes # (auto) 0.01 K/uL (0.00-0.02); Immature Granulocytes % (auto) 0.3 %; Lymphocytes # (auto) 0.67 K/uL (1.2-3.4); Lymphocytes % (auto) 22.3 %; Mean Corpuscular Hemoglobin 29.9 pg (25.0-34.0); Mean Corpuscular Hgb Conc 34.6 g/dL (32.0-36.0); Mean Corpuscular Volume 86.5 fL (80.0-100.0); Mean Platelet Volume 8.9 fL (9.4-12.4); Monocytes # (auto) 0.28 K/uL (0.24-0.82); Monocytes % (auto) 9.3 %; Neutrophils # (auto) 1.99 K/uL (1.4-6.5); Neutrophils % (auto) 66.5 %; Platelet Count 239 K/uL (130-400); RDW Coefficient of Variation 13.3 % (11.5-14.5); RDW Standard Deviation 40.8 fL (36.4-46.3); Red Blood Count 3.78 M/uL (4.63-6.08)
[2022-02-26] MEDS ORDERED: [UNRECOGNIZED DRUG - SUPPLY] TD PRN (10:48)
[2022-02-26 10:52] LABS: BUN Creatinine Ratio 14.9 (10-20); Calcium 8.8 mg/dl (8.5-10.1); Creatinine Clr Calc Pharmacy 96.7 ml/min; Est GFR (African American) 110.5 ml/min; Est GFR (Non-African American) 95.3 ml/min; Potassium 4.1 mmol/L (3.5-5.1)
--- NOTE | 2022-02-26 12:51 | Surgery Progress Note ---
Date of Service February 26, 2022 Assessment & Plan (1) Rectal adenocarcinoma: Plan: 71 y/o male with metastatic rectal cancer s/p diverting colostomy, neoadjuvant rad/chemo, currently on chemo. CT with necrotic tumor vs. contained perf/abscess. Recommend abx, hold coumadin. Recommend discuss with colorectal surgeon, will likely need outpatient follow-up. If drainage needed, would likely need to be transrectal or percutaneous. would recommend transfer back to [place] if this was necessary. Surgery will follow peripherally, call with questions or concerns Admission and Anticipated Discharge Date Admission Date: February 25, 2022 Subjective 71-year-old male with metastatic low rectal cancer status post neoadjuvant chemo rads and currently on chemotherapy. Last dose 7 days ago, started having burning pain in his rectum. CT yesterday showed fluid collection just anterior to the tumor with possible fistula. This is concerning for abscess, but may also represent a necrotic tumor. He has had some drainage from his rectum but this is normal for him. No fevers. Physical Exam Constitutional: WD/WN, vitals as above Gastrointestinal (Abdomen): normal bowel sounds, soft, nontender, no hepatosplenomegaly (Ostomy functioning) Rectal Exam: + rectal mass Tender to palpation anterior rectum, tumor palpable. No easily drainable fluid collection, tumor and fluid collection are above the sphincter Results & Data ([facility]) Vital Signs (Past 12 Hours) Vital Signs Temp Pulse Resp BP Pulse Ox O2 Del Method 02/26/22 07:18 36.3 C L 57 L 18 120/69 99 Room Air PG Care Time/CCT Total # of Minutes Spent Total Time Spent with Patient: Total time spent is greater than 50% in coordination of care (as documented) at patient's floor/unit and/or counseling patient: Coding Level of Care Code 66130 Inpt Consult Level 2 Diagnoses Rectal adenocarcinoma C20
--- NOTE | 2022-02-26 14:44 | Hospitalist Progress Note ---
Date of Service February 26, 2022 Assessment & Plan (1) Rectal adenocarcinoma: Plan: Presents with severe rectal pain. CT a/p with abscess vs necrotic cancer tissue vs both. Gen surg consultation and recs appreciated. Plan moving forward is pain control, IV zosyn, serial exams, etc. I spoke with Dr Duenas from gen surg re: above plan of care. Indications for transfer to tertiary care -- signs of worsening abscess/enlargement, need for IR drainage, etc. Patient has had his prior surgery at [facility]. Appreciate palliative care consultation and recs. Continue fentanyl patch. Cont morphine IV prn. Cont IV zosyn. Cont lidocaine jelly prn to rectal area. Cont gabapentin. Hold ELIQUIS in the event he would need transfer for surgical intervention. Rectal ca - stage 4 with mets to liver, bone, adrenal gland, etc. s/p diverting colostomy, radiation in the past. Most recent chemotherapy 7 days ago. Family requesting consultation with Dr Felton from [facility] - will reach out to him in am. (2) Atrial fibrillation status post cardioversion: Plan: Examines in NSR. Cont metoprolol 200 mg daily. Hold eliquis as noted in #1 above. (3) CAD (coronary artery disease): Plan: Nonobstructive. Continue lisinopril, metoprolol, statin. (4) CHF (congestive heart failure): Plan: Chronic diastolic CHF - compensated. Continue metoprolol, spironolactone, Lasix, lisinopril. (5) Hyponatremia: Plan: chronic, may be low-grade SIADH. recheck BMP am. check urine osm, urine Na. (6) Colostomy status: Plan left message for pt's daughter this evening on her cellphone Admission and Anticipated Discharge Date Admission Date: February 25, 2022 Subjective main complaint is that of ongoing rectal pain morphine IV has helped denies abd pain, nausea or emesis eating fair he is frustrated by his overall condition Review of Systems Review of Systems: gen - denies fevers/chills cv - no cp pulm - no cough or dyspnea GI - no blood per rectum; does have some mild drainage from rectum Physical Exam Physical Exam: gen - NAD mouth - MMM neck - no JVD heart - RRR, s1 s2 lungs - CTA b/l abd - soft NT ND BS+; colostomy present with brown stool in bag rectal - deferred ext - no edema, pulses 2+ b/l Results & Data Results & Data ([facility]) Vital Signs (Past 12 Hours) Vital Signs Temp Pulse Resp BP Pulse Ox O2 Del Method 02/26/22 14:26 36.3 C L 87 16 114/69 98 Room Air 02/26/22 07:18 36.3 C L 57 L 18 120/69 99 Room Air Laboratory Results Laboratory Results - last 24 hr 02/25/22 02/25/22 02/25/22 14:55 14:55 15:06 WBC 3.38 L RBC 3.95 L Hgb 11.8 L POC Hgb 11.9 L Hct 34.7 L POC Hct 35 L MCV 87.8 MCH 29.9 MCHC 34.0 RDW Std Deviation 40.6 RDW Coeff of Prashant 13.1 Plt Count 261 MPV 8.9 L Immature Gran % (Auto) 0.6 Neut % (Auto) 72.7 Lymph % (Auto) 16.6 [place] % (Auto) 8.3 Eos % (Auto) 1.5 Baso % (Auto) 0.3 Neut # (Auto) 2.46 Lymph # (Auto) 0.56 L [place] # (Auto) 0.28 Eos # (Auto) 0.05 Baso # (Auto) 0.01 Immature Gran # (Auto) 0.02 POC Sodium 132 L Sodium 132 L POC Potassium 4.0 Potassium 4.0 POC Chloride 96 L Chloride 98 Carbon Dioxide 27 POC Total CO2 25 Anion Gap 7 POC Anion Gap 16.0 POC BUN 16 BUN 16 Creatinine 0.73 POC Creatinine 0.8 Est Cr Clr Drug Dosing 90.8 Est GFR ( Amer) 106.7 Est GFR (Non-Af Amer) 92.0 BUN/Creatinine Ratio 21.9 H Glucose 100 H POC Glucose (other) 101 H Calcium 9.2 POC Ioniz Calcium [place] 1.19 Magnesium 2.1 Total Bilirubin 0.4 Direct Bilirubin 0.1 AST 13 ALT 11 Alkaline Phosphatase 115 H Troponin I High Sens 6.1 Total Protein 7.0 Albumin 3.8 Lipase 32 SARS-CoV-2, RNA, NAAT 02/25/22 02/26/22 02/26/22 Unknown 09:54 09:54 WBC 3.00 L RBC 3.78 L Hgb 11.3 L POC Hgb Hct 32.7 L POC Hct MCV 86.5 MCH 29.9 MCHC 34.6 RDW Std Deviation 40.8 RDW Coeff of Prashant 13.3 Plt Count 239 MPV 8.9 L Immature Gran % (Auto) 0.3 Neut % (Auto) 66.5 Lymph % (Auto) 22.3 [place] % (Auto) 9.3 Eos % (Auto) 1.3 Baso % (Auto) 0.3 Neut # (Auto) 1.99 Lymph # (Auto) 0.67 L [place] # (Auto) 0.28 Eos # (Auto) 0.04 Baso # (Auto) 0.01 Immature Gran # (Auto) 0.01 POC Sodium Sodium 133 L POC Potassium Potassium 4.1 POC Chloride Chloride 99 Carbon Dioxide 28 POC Total CO2 Anion Gap 6 POC Anion Gap POC BUN BUN 10 Creatinine 0.67 POC Creatinine Est Cr Clr Drug Dosing 96.7 Est GFR ( Amer) 110.5 Est GFR (Non-Af Amer) 95.3 BUN/Creatinine Ratio 14.9 Glucose 102 H POC Glucose (other) Calcium 8.8 POC Ioniz Calcium Franc[place]a Magnesium Total Bilirubin Direct Bilirubin AST ALT Alkaline Phosphatase Troponin I High Sens Total Protein Albumin Lipase SARS-CoV-2, RNA, NAAT NEGATIVE PG Care Time/CCT Total # of Minutes Spent Total Time Spent with Patient: Total time spent is greater than 50% in coordination of care (as documented) at patient's floor/unit and/or counseling patient: Coding Level of Care Code 66387 Subseq Hosp Care Lvl 3 Diagnoses Rectal adenocarcinoma C20 Atrial fibrillation status post cardioversion I48.91 CAD (coronary artery disease) I25.10 CHF (congestive heart failure) I50.9 Hyponatremia E87.1 Colostomy status Z93.3
[2022-02-26] MEDS: MoRPHine SULFATE 2 MG/ML CARP IV PRN ×5 (14:54→23:42)
[2022-02-26] MEDS: GABAPENTIN 100 MG CAP PO SCH (19:51)
[2022-02-26] MEDS ORDERED: GABAPENTIN 300 MG CAP PO SCH (21:00)
[2022-02-27] MEDS: CHECK fentaNYL PATCH PLACEMENT SCH ×4 (00:09→23:51)
[2022-02-27] MEDS: MoRPHine SULFATE 2 MG/ML CARP IV PRN ×8 (01:52→23:49)
[2022-02-27] MEDS: PIPERACILLIN/TAZOBACTAM 3.375 GM in DEXTROSE 5% 100 ML IV SCH ×3 (03:55→20:19)
[2022-02-27 07:06] LABS: Basophils # (auto) 0.01 K/uL (0-0.2); Basophils % (auto) 0.3 %; Eosinophils # (auto) 0.02 K/uL (0-0.50); Eosinophils % (auto) 0.6 %; Hematocrit (blood only) 33.7 % (40.1-51.0); Hemoglobin 11.7 g/dl (14.0-18.0); Immature Granulocytes # (auto) 0.02 K/uL (0.00-0.02); Immature Granulocytes % (auto) 0.6 %; Lymphocytes # (auto) 0.54 K/uL (1.2-3.4); Lymphocytes % (auto) 16.3 %; Mean Corpuscular Hemoglobin 30.3 pg (25.0-34.0); Mean Corpuscular Hgb Conc 34.7 g/dL (32.0-36.0); Mean Corpuscular Volume 87.3 fL (80.0-100.0); Mean Platelet Volume 8.9 fL (9.4-12.4); Neutrophils # (auto) 2.43 K/uL (1.4-6.5); Neutrophils % (auto) 73.2 %; Platelet Count 241 K/uL (130-400); RDW Coefficient of Variation 13.1 % (11.5-14.5); RDW Standard Deviation 40.6 fL (36.4-46.3); Red Blood Count 3.86 M/uL (4.63-6.08); White Blood Count 3.32 K/ul (4.8-10.8)
[2022-02-27 07:38] LABS: BUN Creatinine Ratio 11.7 (10-20); Creatinine Clr Calc Pharmacy 107.9 ml/min; Est GFR (African American) 115.6 ml/min; Est GFR (Non-African American) 99.7 ml/min; Potassium 3.6 mmol/L (3.5-5.1)
[2022-02-27] MEDS: HEPARIN 100 UNIT/ML 5ML FLUSH FLUSH PRN ×2 (08:05→23:49)
[2022-02-27] MEDS: fentaNYL 25 MCG/HR TDSY TD SCH (08:23)
[2022-02-27] MEDS: ATORVASTATIN 10 MG TAB PO SCH (08:24)
[2022-02-27] MEDS: FUROSEMIDE 40 MG TAB PO SCH (08:24)
[2022-02-27] MEDS: lisinopril 5 MG TAB PO SCH (08:24)
[2022-02-27] MEDS: METOPROLOL SUCC 50MG EXT REL TAB PO SCH (08:24)
[2022-02-27] MEDS: SPIRONOLACTONE 25 MG TAB PO SCH (08:24)
[2022-02-27] MEDS: LIDOCAINE 5% OINT 30 GM TUBE EXT PRN (16:24)
[2022-02-27] MEDS: FIRST - Mouthwash BLM 119 ML PO SCH ×2 (17:46→20:21)
--- NOTE | 2022-02-27 18:52 | Hospitalist Progress Note ---
Date of Service February 27, 2022 Assessment & Plan (1) Rectal adenocarcinoma: Plan: Presented with severe rectal pain. CT a/p with abscess vs necrotic rectal cancer tissue vs both. Gen surg consultation and recs appreciated. Appreciate palliative care consultation and recs. Cont pain control, IV zosyn, serial exams, etc. Continue fentanyl patch. Cont morphine IV prn. Cont IV zosyn. Cont lidocaine jelly prn to rectal area. Cont gabapentin. Hold ELIQUIS at least 1 more day in the event he would need transfer to [place] for surgical intervention but hopefully this will not be necessary; he was clinically improved a little today. Rectal ca - stage 4 with mets to liver, bone, adrenal gland, etc. s/p diverting colostomy, radiation in the past. Most recent chemotherapy 7-8 days ago. Family requesting consultation with Dr Felton from [facility]. I spoke to Dr Felton and he will consult today or in am. (2) Atrial fibrillation status post cardioversion: Plan: Examines in NSR. Cont metoprolol 200 mg daily. Hold eliquis as noted in #1 above. Ideally eliquis is resumed sooner rather than later as he is at high risk of VTE given his extensive cancer. (3) CAD (coronary artery disease): Plan: Nonobstructive. Continue lisinopril, metoprolol, statin. (4) CHF (congestive heart failure): Plan: Chronic diastolic CHF - compensated. Continue metoprolol, spironolactone, Lasix, lisinopril. (5) Hyponatremia: Plan: chronic but stable urine osm, urine Na not c/w SIADH. low Na likely due to diuretic usage cont to trend (6) Colostomy status: Plan: schedule miralax daily or even BID to maintain adequate stool output given the frequent narcotic usage he is developing some opiate-induced constipation Plan did speak with pt's daughter this evening by phone, questions answered mucositis - add magic mouthwash qid swish/spit Admission and Anticipated Discharge Date Admission Date: February 25, 2022 Subjective rectal pain is "slightly" better today he continues to use the IV morphine quite frequently no abd pain no chest pain no nausea/vomiting eating fair the morphine does provide decent rectal pain relief rectal drainage continues stool output via his ostomy has been quite sluggish the last few days he also c/o mild mouth discomfort Review of Systems Review of Systems: gen - no fevers or chills cv - no cp pulm - no dyspnea GI - no abd pain; stool in ostomy without blood Physical Exam Physical Exam: gen - NAD, awake, alert mouth - MMM, minimal mucositis seen neck - no JVD heart - RRR, s1 s2, no murmur lungs - CTA b/l abd - soft NT ND BS+; colostomy present with brown stool in bag (some of the stool is firm to palpation) rectal - deferred once again ext - no edema, pulses 2+ b/l psych - restricted affect Results & Data Results & Data ([facility]) Vital Signs (Past 12 Hours) Vital Signs Temp Pulse Resp BP Pulse Ox O2 Del Method 02/27/22 14:38 36.5 C 72 16 112/72 98 Room Air 02/27/22 07:30 36.8 C 74 16 126/76 98 Room Air Laboratory Results Laboratory Results - last 24 hr 02/27/22 02/27/22 02/27/22 06:43 06:43 12:22 WBC 3.32 L RBC 3.86 L Hgb 11.7 L Hct 33.7 L MCV 87.3 MCH 30.3 MCHC 34.7 RDW Std Deviation 40.6 RDW Coeff of Prashant 13.1 Plt Count 241 MPV 8.9 L Immature Gran % (Auto) 0.6 Neut % (Auto) 73.2 Lymph % (Auto) 16.3 [place] % (Auto) 9.0 Eos % (Auto) 0.6 Baso % (Auto) 0.3 Neut # (Auto) 2.43 Lymph # (Auto) 0.54 L [place] # (Auto) 0.30 Eos # (Auto) 0.02 Baso # (Auto) 0.01 Immature Gran # (Auto) 0.02 Sodium 133 L Potassium 3.6 Chloride 99 Carbon Dioxide 27 Anion Gap 7 BUN 7 Creatinine 0.60 Est Cr Clr Drug Dosing 107.9 Est GFR ( Amer) 115.6 Est GFR (Non-Af Amer) 99.7 BUN/Creatinine Ratio 11.7 Glucose 107 H Calcium 9.0 Urine Osmolality 187 L Ur Random Sodium 02/27/22 12:22 WBC RBC Hgb Hct MCV MCH MCHC RDW Std Deviation RDW Coeff of Prashant Plt Count MPV Immature Gran % (Auto) Neut % (Auto) Lymph % (Auto) [place] % (Auto) Eos % (Auto) Baso % (Auto) Neut # (Auto) Lymph # (Auto) [place] # (Auto) Eos # (Auto) Baso # (Auto) Immature Gran # (Auto) Sodium Potassium Chloride Carbon Dioxide Anion Gap BUN Creatinine Est Cr Clr Drug Dosing Est GFR ( Amer) Est GFR (Non-Af Amer) BUN/Creatinine Ratio Glucose Calcium Urine Osmolality Ur Random Sodium 50 PG Care Time/CCT Total # of Minutes Spent Total Time Spent with Patient: Total time spent is greater than 50% in coordination of care (as documented) at patient's floor/unit and/or counseling patient: Coding Level of Care Code 62339 Subseq Hosp Care Lvl 2 Diagnoses Rectal adenocarcinoma C20 Atrial fibrillation status post cardioversion I48.91 CAD (coronary artery disease) I25.10 CHF (congestive heart failure) I50.9 Hyponatremia E87.1 Colostomy status Z93.3
[2022-02-27] MEDS: GABAPENTIN 100 MG CAP PO SCH (20:21)
[2022-02-28] MEDS: PIPERACILLIN/TAZOBACTAM 3.375 GM in DEXTROSE 5% 100 ML IV SCH ×3 (03:51→20:14)
[2022-02-28] MEDS: MoRPHine SULFATE 2 MG/ML CARP IV PRN ×2 (03:54→11:07)
--- NOTE | 2022-02-28 06:08 | Consultation ---
Date of Consultation February 27, 2022 Assessment & Plan (1) Rectal cancer: Rectal cancer has essentially progressed through the initial FOLFOX and chemoradiation and now is clearly progressive on FOLFIRI/bevacizumab with both radiologic and tumor marker indication of persistent/progressive disease. I spoke quite frankly with Rigoberto himself for approximately 40 minutes and then for another 30 minutes with his daughter Sarina. Note that Sarina is a nurse. While there are technically some additional treatment options available including anti-EGFR therapy and Lonsurf or regorafenib, lack of microsatellite instability or specific mutations largely excludes the targeted therapy and immunotherapy options that can be used in cases where those are present. He has upfront resistance to the most functional agents in the treatment of colon cancer5-fluorouracil, oxaliplatin, irinotecan, bevacizumabbodes poorly for any significant response to additional agents. Furthermore with the potential for pelvic abscess, the cytopenias induced by additional lines of treatment could paradoxically shorten his life by exacerbating his risk for life-threatening infection or bleeding. While anti-EGFR agents would not have the specific cytopenia risk, it would usually be paired with 5-fluorouracil based approach as to which he has become refractory and are not likely to have a significant impact as monotherapy It is becoming more more clear in all oncology that excessive attempts at salvage lines of chemotherapy in the face of poor performance status and resistant disease undermines both quality and quantity of life. His daughter unequivocally understands that we have little to gain and much to lose with further chemotherapy. Rigoberto himself has been a "fighter" and I think he is still struggling a bit with the transition away from aggressive chemotherapy but in very blunt conversation I think he, too, recognizes that if there is no significant utility to further chemotherapy it does not make sense to proceed. I think this significantly colors our overall approach and specifically the approach to his abscess. That is discussed separately but major interventional radiology and especially surgical intervention may not accomplish much if we are not changing the "bigger picture" of the disease itself and may actually lead to significant harm given the potential for complications in the immediate aftermath of bevacizumab administration. His daughter specifically advances an agenda of a transition to hospice like care. I did present that to Rigoberto and he expresses familiarity with the concept of hospice experiences with an uncle. He did not frankly rule hospice out but did express concerns about his ability to function at home where he currently lives alone. In speaking with Sarina, there is a sister who could accept him into her home which is a ranch house layout and could be much more functional than his own or Sarina's house. While the sister had been previously somewhat resistant to bringing him into her home in a hospice like situation, apparently she has now offered to do so. Sarina's own house is multilevel and would be logistically quite difficult to accommodate Rigoberto but even she says that if there were no other choice that she would be willing to explore that. E veryone does feel it would be very important to avoid an institutional solution for the longer term though perhaps there might be some consideration for short- term rehabilitation option. Overall we seem to have nothing functional to offer Rigoberto from a cancer- specific therapy perspective except for an aggressive push towards a simplistic, symptom oriented approach and one that really looks more at the humanistic need to get him home with his family as best we can. I do not see that there would be great utility in a transfer to a quaternary institution but rather we should assemble what we can in terms of short-term management to basic biologic stabilization and then ultimate transition to hospice like care here locally (2) Cancer-related breakthrough pain: Appreciate Dr. Shaw's thoughtful assessment and treatment recommendations. As discussed under the rectal cancer heading and also his abscess, we unfortunately have little to offer in terms of functional management of his medical issues other than perhaps medical stabilization of the infection. We should more aggressively transition towards hospice like management approaches and in so doing will obviously have an aggressive spectrum of options in terms of medical management which are best deferred to her (3) Abscess of rectum: Apparent abscess in the rectum which is a consequence of a probable fistula. There also may be an element of tumor breakdown not so much from dramatic efficacy of the chemo/biotherapy regimen perhaps but perhaps more reflective of the simple tumor mass itself outpacing insulin vasculature in the face of bevacizumab impairment of neovascular formation. A critical issue is that he is received bevacizumab just 10 days ago. For 4 weeks after its administration there can be significant issues with wound healing and tissue breakdown. Outside of a true emergency and even then only with a procedure that will dramatically positively change his overall situation, surgical intervention would be more likely to cause harm than good. Particularly in the context of what looks like a refractory rectal carcinoma for which we do not have functional further systemic cancer-treatment specific options to offer, surgical intervention would seem unwise here as it neither changes his overall prognosis to a dramatic degree nor offers a reasonably safe short-term option to dramatically improve his situation. More conservative management with antibiotics and aggressive pain control seems more appropriate with as above a [facility] (4) Atrial fibrillation status post cardioversion: He is at greater risk for bleeding given the tissue breakdown in the pelvis. Fortunately he seems to be in NSR at this point and I would presume that it is reasonably safe to indefinitely suspend his apixaban. Curbside review with cardiology could be considered Plan 1. I do not believe that any of the available salvage therapies will make a significant difference in his overall cancer specific outcome and indeed may be likely to cause more harm than good as above 2. Given recent bevacizumab aggressive intervention beyond medications for the pelvic abscess may also create significant difficulties with tissue wound healing problems and bleeding 3. His daughter clearly embraces a move towards hospice like care and I believe Rigoberto himself is coming to realize that that is the more sensible approach 4. Would be good to try to optimize as best we can with medical management his infectious status and determine if we can indefinitely stop his anticoagulation. There might even be some consideration for short-term rehabilitation to help him regain some functionality as that could impact on near-term quality of life 5. Would work particularly with his daughter to coordinate options for a transition away from the hospital into hospice like management either in the home with his sister or in Sarina's home itself. 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 He was treated sequentially with FOLFOX neoadjuvant chemotherapy between February 2021 and August 2021 followed by chemoradiation potentiated by capecitabine completed October, as part of an intended AMY approach. Unfortunately, interval restaging in November, showed disease progression with development of hepatic and pulmonary disease and incomplete response in the pelvis. Based on that he was considered not a candidate for surgery and was transition to his most recent regimen, FOLFIRI with bevacizumab salvage starting 01/07/2022 completing 4 cycles as of 04/22/2021 We note that NGS studies showed a low tumor mutational burden at just 5 mutations per megabyte, microsatellite stable status, and genomic alterations of PIK3CA Exon 10, TERT promoter, APC, AXIN 2, MEK1, TP53. No mutations were identified in KRAS, NRAS, BRAF. or ERBB2 Unfortunately on FOLFIRI with bevacizumab he has had progressive discomfort and is admitted with uncontrolled pain. We also now see that his imaging suggests progression in the liver and lung Allergies Allergy/AdvReac Type Severity Reaction Status Date / Time No Known Allergies Allergy Verified 02/25/22 15:12 Home Medications Medication Instructions Recorded Confirmed Type acetaminophen 325 mg tablet 650 mg PO Q6H PRN Pain 03/01/21 02/25/22 History (Tylenol) furosemide 40 mg tablet 40 mg PO QAM #90 tabs 04/02/21 02/25/22 Rx spironolactone 25 mg tablet 25 mg PO DAILY #90 tabs 04/02/21 02/25/22 Rx enppytdmupw-nuqntxtgb-ige C-Mn 500 1 cap PO DAILY 09/04/21 02/25/22 History mg-400 mg capsule (Glucosamine Chondroitin Maximum Strength) ondansetron HCl 8 mg tablet 8 mg PO Q8H PRN NAUSEA/VOMITING 09/04/21 02/25/22 History prochlorperazine maleate 10 mg 10 mg PO Q6H PRN NAUSEA/VOMITING 09/04/21 02/25/22 History tablet (Compazine) apixaban 5 mg tablet (Eliquis) 5 mg PO BID #180 tabs 10/02/21 02/25/22 Rx atorvastatin 10 mg tablet 10 mg PO 3XWK 02/25/22 02/25/22 History fentanyl 25 mcg/hr transdermal 25 mcg transdermal .Q3DAYS 02/25/22 02/25/22 History patch lisinopril 5 mg tablet 5 mg PO DAILY #90 tabs 02/25/22 02/25/22 Rx metoprolol succinate 200 mg 200 mg PO QAM #90 tabs 02/25/22 02/25/22 Rx tablet,extended release 24 hr nystatin 100,000 unit/gram topical 1 applic topical BID PRN Skin 02/25/22 02/25/22 History powder Irritation oxycodone 5 mg tablet 5 mg PO .Q4-6HR PRN Pain 02/25/22 02/25/22 History silver sulfadiazine 1 % topical 1 applic topical BID PRN Skin 02/25/22 02/25/22 History cream (Silvadene) Irritation Patient History Medical History Alcoholism Quit 2014 Atrial fibrillation status post cardioversion Cardioversion with amiodarone 2014 On warfarin daily--follows with Dr. 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 Dr. Nogueira 03/12/21 S/P colostomy Diagnostic laparoscopy, laparoscopic diverting loop sigmoid colostomy on 01/30/[address] Concepcion at [facility] [place] Family History Father , 68yo Alcoholism Hypertension Stroke Smoker Mother , 72yo COPD (chronic obstructive pulmonary disease) Heart disease Sister COPD (chronic obstructive pulmonary disease) Hypertension Sister Glaucoma Daughter Cardiomyopathy Heart disease Aunt Stroke Other No family history of adverse response to anesthesia Social History Smoking Status: Never smoker Tobacco Type: Smokeless Tobacco (Dip or Chew) Second Hand Exposure: Yes; Hx Alcohol Use: No Hx Substance Use: No Preferred Language: Tamazight Communication Ability: Effective Health Services Director Required: No Beliefs That Will Affect Care: None marital status: Current Living Situation: Alone Current Living Situation Comment: Lives alone in 2 story house, daughter lives close current occupational status: retired current occupation: [employer] work How many Children do You have: 1 Other Information That Helps Us Care for You: No Feels Safe at Home: Yes Safety Concerns: Feels Safe At This Time Childhood Exposure to Second-Hand Smoke: No caffeine: No during the past year weight has: decreased > 10 lbs Seatbelt Use: never Assistive Devices: None Review of Systems Review of Systems: Primary issue continues to be the pelvic discomfort though this is down to a 7 out of 10 from original 10 out of 10. He is not reporting breathing difficulties, is having no nausea or vomiting. Emotionally/psychologically he actually seems relatively stoic but not severely depressed. He seems quite appropriate and overall interaction. No other immediately concerning findings on a complete review of systems Physical Exam Physical Exam: Temperature 36.6, respirations 16, pulse 77 and seems regular, blood pressure 105/70. Pulse ox is 97% on room air. He is sitting up in the bed fully alert. Although his conversation is sparse it is fluent and appropriate and he seems fully intact with regards to medical decision making. He has no jaundice or major HEENT findings. His lungs are clear to percussion and auscultation without marked focal rubs or rales. Cardiac rhythm is cu rrently regular without pathological rubs or murmurs. His abdominal examination shows it to be nondistended with a functioning ostomy. There is no gross suggestion of ascites. He does have some pelvic tenderness but no rigidity or marked rebound. Para extremities do not currently suggest DVT his neurologic exam seems nonfocal Results & Data ([facility]) Vital Signs (Past 12 Hours) Vital Signs Temp Pulse Resp BP Pulse Ox O2 Del Method 02/27/22 21:04 36.6 C 77 16 105/70 97 Room Air Laboratory Results Abnormal lab results 02/27/22 02/27/22 02/27/22 Range/Units 06:43 06:43 12:22 WBC 3.32 L (4.8-10.8) K/ul RBC 3.86 L (4.63-6.08) M/uL Hgb 11.7 L (14.0-18.0) g/dl Hct 33.7 L (40.1-51.0) % MPV 8.9 L (9.4-12.4) fL Lymph # (Auto) 0.54 L (1.2-3.4) K/uL Sodium 133 L (136-145) mmol/L Glucose 107 H (70-99(Fasting)) mg/dl Urine Osmolality 187 L (500-800) mOsm/kg Note that his baseline CEA prior to the start of a salvage regimen was 6.5 on December 18, 2021 but had risen to 11.5 on February 20, 2022. Maximum historic CEA in February 2021 was 75.5 Diagnostic Findings Abdomen/Pelvis CT 02/25/22 14:[address] WITH IV CONTRAST CT DOSE: 318.44 mGy.cm HISTORY: rectal cancer with worsening generalized abdominal pain. No ostomy stool x24 h TECHNIQUE: Multiaxial CT images of the abdomen and pelvis were performed following the use of intravenous contrast. A dose lowering technique was utilized adhering to the principles of ALARA. COMPARISON STUDY: Abdomen and pelvis CT FINDINGS: Interval development of multiple subcentimeter pulmonary nodules at the lung bases consistent with metastatic disease. Dominant nodule within the left lower lobe on image 31 measures 6 mm. Small focal area of bony erosion within the right T12 transverse process on image 103. This is new from the prior study and is concerning for metastatic disease. There are new scattered irregular hypodense lesions within the liver with the largest at the left hepatic dome measuring 3 cm. This is consistent with hepatic metastatic disease. The gallbladder, spleen, right adrenal gland, and pancreas are unremarkable. No hydronephrosis. Stable partially calcified left renal cyst. Slight increase in size in a 2.6 cm left adrenal gland nodule, previously measuring 3 cm. The main portal vein is patent. No retroperitoneal lymphadenopathy. The left lower quadrant colostomy again noted. The bladder is mildly distended. The prostate gland remains enlarged. Slight decrease in size in the ill-defined left rectal mass compared to the prior study. However, there has been interval of a focal fistula tract within the anterior wall the rectum on image 419 with an adjacent 3.2 x 2.3 cm contains gas and fluid collection anterior to the rectum on image 543. This is consistent with a contained perforation/abscess. A few subcentimeter perirectal lymph nodes are again noted consistent with metastatic disease. Colonic diverticulosis. No evidence for acute diverticulitis. Moderate well-formed stool within the colon. No evidence for bowel obstruction. Normal appendix. Normal caliber abdominal aorta. IMPRESSION: 1. Interval development of pulmonary and hepatic metastatic disease. 2. There is a 3.2 x 2.3 cm focal contained perforation/abscess within the anterior perirectal space secondary to a small fistulous tract within the anterior wall the rectum as described above. This is likely due to the ulcerating tumor at this location. 3. The rectal mass appears to have slightly decreased in size. Subcentimeter perirectal lymph nodes again noted. 4. Slight decrease in size in the left adrenal gland mass which measures 2.6 cm. 5. Focal erosion within the right T12 transverse process likely representing metastatic disease. 6. Additional findings as described above. ACT 112: Negative or not required by law. Electronically signed by: Pankaj Cantu M.D. 02/25/2022 4:11 PM PG Care Time/CCT Total # of Minutes Spent Total Time Spent with Patient: Total time spent is greater than 50% in coordination of care (as documented) at patient's floor/unit and/or counseling patient: [place] [address] Inpt Consult Level 5 Patient Type New History Expanded Problem Focused Exam Expanded Problem Focused Diagnoses Rectal cancer C20 Cancer-related breakthrough pain G89.3 Abscess of rectum K61.1 Atrial fibrillation status post cardioversion I48.91 Time Spent (min) 90 Comment 40 min with patient, 30 with daughter, 20 assembling care and documentation
[2022-02-28] MEDS: FUROSEMIDE 40 MG TAB PO SCH (08:16)
[2022-02-28] MEDS: METOPROLOL SUCC 50MG EXT REL TAB PO SCH (08:16)
[2022-02-28] MEDS: lisinopril 5 MG TAB PO SCH (08:16)
[2022-02-28] MEDS: SPIRONOLACTONE 25 MG TAB PO SCH (08:16)
[2022-02-28] MEDS: FIRST - Mouthwash BLM 119 ML PO SCH ×4 (08:17→20:13)
[2022-02-28] MEDS: CHECK fentaNYL PATCH PLACEMENT SCH ×2 (08:17→16:13)
[2022-02-28] MEDS: POLYETHYLENE (MIRALAX) 17 GM PACK PO SCH (09:11)
[2022-02-28 09:23] LABS: Hematocrit (blood only) 32.8 % (40.1-51.0); Hemoglobin 11.3 g/dl (14.0-18.0); Mean Corpuscular Hemoglobin 30.1 pg (25.0-34.0); Mean Corpuscular Hgb Conc 34.5 g/dL (32.0-36.0); Mean Corpuscular Volume 87.2 fL (80.0-100.0); Mean Platelet Volume 9.1 fL (9.4-12.4); Platelet Count 289 K/uL (130-400); RDW Coefficient of Variation 13.5 % (11.5-14.5); RDW Standard Deviation 41.1 fL (36.4-46.3); Red Blood Count 3.76 M/uL (4.63-6.08); White Blood Count 3.57 K/ul (4.8-10.8)
[2022-02-28 09:42] LABS: BUN Creatinine Ratio 15.6 (10-20); Calcium 9.1 mg/dl (8.5-10.1); Creatinine Clr Calc Pharmacy 101.2 ml/min; Est GFR (African American) 112.6 ml/min; Est GFR (Non-African American) 97.1 ml/min; Potassium 3.9 mmol/L (3.5-5.1)
[2022-02-28] MEDS: LIDOCAINE 5% OINT 30 GM TUBE EXT PRN (11:04)
[2022-02-28] MEDS: MoRPHine SULFATE 5 MG/0.25 ML UDP PO PRN ×3 (11:58→22:23)
--- NOTE | 2022-02-28 13:24 | Palliative Care Progress Note ---
Date of Service February 28, 2022 Assessment & Plan (1) Rectal pain: Plan: Continue adjuvant gabapentin and topical lidocaine. He is not having excessive sedation with gabapentin. He has not been using lidocaine as he prefers heating pad but is willing to try it. Continue fentanyl patch at 25mc. Will rotate to oral morphine for longer acting relief and simulation of home regimen. Continue IV morphine if po ineffective. (2) Palliative care encounter: Plan: Mr. Gold had an opportunity to talk with Dr. Keller and understood that he is unlikely to have significant benefit from further cancer treatment. I asked him how he felt about that and he said if it wasn't going to help, he wouldn't want it. However, he immediately said that he has seen ads for another treatment that he would want to talk to Dr. Keller about. He told me that he's not ready to . I asked him to expand on that and he said that he has more hunting and fishing to do. He has unfortunately not felt well enough to go out hunting or fishing for some time. We talked about getting a license to be able to walker from his vehicle so that he might be able to get out yet this year. We also talked about his thoughts on hospice care if he wasn't benefitting from cancer treatment. He told me hospice would be "a last resort". I spoke with his daughter, Sarina, on the phone and updated her on medication changes and my visit with her father. She is supportive of hospice but is not surprised that he is reluctant to do that. I encouraged her to discuss this further with him if he is willing. We discussed f/u with palliative care after discharge to monitor symptom control and continue discussion on plan of care. Both are agreeable to that. Discussed with Dr. Richards. Admission and Anticipated Discharge Date Admission Date: February 25, 2022 Subjective Awake and alert. Reports being a little more comfortable but still has burning rectal pain. He has had 45mg OME in last 25 hours in prn dosing in addition to fentanyl patch. He notices relief with morphine but says that it is short lived. He had an unfortunate incident this morning with high volume output from his colostomy and bag leaking. He notes some yellowish brown rectal drainage with no odor and feels that his pain improved after that. Review of Systems Review of Systems: ESAS Pain 2/3 Dyspnea 0/3 Fatigue 2/3 Drowsiness 0/3 Nausea 0/3 PPS 50% Physical Exam Constitutional: + thin and + frail appearing ENMT: Mouth: oral mucous membranes not dry Respiratory: normal respiratory effort; no labored breathing Gastrointestinal (Abdomen): colostomy, liquid brown stool Musculoskeletal: Extremities: + muscle atrophy Neurologic: Speech / Cognition: normal cognition Genitourinary: continent Results & Data ([facility]) Vital Signs (Past 12 Hours) Vital Signs Temp Pulse Resp BP Pulse Ox O2 Del Method 02/28/22 08:44 Room Air 02/28/22 07:35 98.6 F 69 18 115/72 99 Room Air PG Care Time/CCT Total # of Minutes Spent Total Time Spent: 44 Total Time Spent with Patient: Total time spent is greater than 50% in coordination of care (as documented) at patient's floor/unit and/or counseling patient:symptom management, goals of care, hospice, coordination of care. Coding Level of Care Code 56097 Subseq Hosp Care Lvl 3 Diagnoses Rectal pain K62.89 Palliative care encounter Z51.5
--- NOTE | 2022-02-28 18:07 | Hospitalist Progress Note ---
Date of Service February 28, 2022 Assessment & Plan (1) Rectal adenocarcinoma: Plan: Presented with severe rectal pain. CT a/p with abscess vs necrotic rectal cancer tissue vs both. Gen surg consultation and recs appreciated. Appreciate palliative care consultation and recs. Cont pain control, IV zosyn, serial exams, etc. Continue fentanyl patch. Cont morphine IV or PO prn. Cont IV zosyn. Cont lidocaine jelly prn to rectal area. Cont gabapentin. Hold ELIQUIS at least 1 more day but suspect it can be resumed; unlikely to need surgical intervention. Would resume Eliquis until he has decided about hospice given high risk of DVT/PE. Rectal ca - stage 4 with mets to liver, bone, adrenal gland, etc. s/p diverting colostomy, radiation in the past. Most recent chemotherapy [address] Keller's consultation and his candid discussion with the patient regarding limited options for ongoing treatment and appropriateness of transitioning to hospice. (2) Atrial fibrillation status post cardioversion: Plan: Examines in NSR. Cont metoprolol 200 mg daily. Hold eliquis as noted in #1 above but will resume tomorrow am if stable. (3) CAD (coronary artery disease): Plan: Nonobstructive. Continue lisinopril, metoprolol, statin. no ischemic symptoms. (4) CHF (congestive heart failure): Plan: Chronic diastolic CHF - compensated. Continue metoprolol, spironolactone, Lasix, lisinopril. (5) Hyponatremia: Plan: chronic but stable urine osm, urine Na not c/w SIADH. low Na likely due to diuretic usage cont to trend (6) Colostomy status: Plan: schedule miralax daily to maintain stool output did have large amount of stool this am Plan did speak with pt's daughter yesterday evening by phone, questions answered mucositis - cont magic mouthwash qid swish/spit PT, OT danielle Admission and Anticipated Discharge Date Admission Date: February 25, 2022 Subjective rectal pain remains but not as severe as previous pain meds certainly helping tried lidocaine jelly - did help some drainage from rectum continues - mild denies abd pain he recounts his discussion with Dr Keller regarding chemo and that Dr Keller told him that additional chemo options are limited and likely of little benefit we talked about when he is ready to d/c home - prefers to "go back to my house if I can" no other new issues/complaints Review of Systems Review of Systems: gen - no fevers or chills; eating ok cv - no cp pulm - no dyspnea GI - no nausea/emesis; had large amount of stool via ostomy this am Physical Exam Physical Exam: gen - NAD, awake, alert, unchanged from yesterday mouth - MMM, minimal mucositis seen ; no obvious thrush neck - no JVD heart - RRR, s1 s2, no murmur lungs - CTA b/l abd - soft NT ND BS+; colostomy present with bag in place ext - no edema, pulses 2+ b/l psych - restricted affect Results & Data Results & Data ([facility]) Vital Signs (Past 12 Hours) Vital Signs Temp Pulse Resp BP Pulse Ox O2 Del Method 02/28/22 15:54 36.9 C 73 18 105/68 97 Room Air 02/28/22 08:44 Room Air 02/28/22 07:35 37 C 69 18 115/72 99 Room Air Laboratory Results Laboratory Results - last 24 hr 02/28/22 02/28/22 02/28/22 08:11 08:11 08:11 WBC 3.57 L RBC 3.76 L Hgb 11.3 L Hct 32.8 L MCV 87.2 MCH 30.1 MCHC 34.5 RDW Std Deviation 41.1 RDW Coeff of Prashant 13.5 Plt Count 289 MPV 9.1 L Sodium 132 L Potassium 3.9 Chloride 98 Carbon Dioxide 27 Anion Gap 7 BUN 10 Creatinine 0.64 Est Cr Clr Drug Dosing 101.2 Est GFR ( Amer) 112.6 Est GFR (Non-Af Amer) 97.1 BUN/Creatinine Ratio 15.6 Glucose 118 H Calcium 9.1 TSH 4.287 PG Care Time/CCT Total # of Minutes Spent Total Time Spent with Patient: Total time spent is greater than 50% in coordination of care (as documented) at patient's floor/unit and/or counseling patient: Coding Level of Care Code 29929 Subseq Hosp Care Lvl 2 Diagnoses Rectal adenocarcinoma C20 Atrial fibrillation status post cardioversion I48.91 CAD (coronary artery disease) I25.10 CHF (congestive heart failure) I50.9 Hyponatremia E87.1 Colostomy status Z93.3
[2022-02-28] MEDS: GABAPENTIN 100 MG CAP PO SCH (20:14)
[2022-03-01] MEDS: CHECK fentaNYL PATCH PLACEMENT SCH ×3 (00:27→16:28)
[2022-03-01] MEDS: PIPERACILLIN/TAZOBACTAM 3.375 GM in DEXTROSE 5% 100 ML IV SCH ×3 (04:08→19:48)
[2022-03-01] MEDS: MoRPHine SULFATE 5 MG/0.25 ML UDP PO PRN ×2 (05:27→11:59)
--- NOTE | 2022-03-01 06:21 | Hospitalist Progress Note ---
Date of Service February 28, 2022 Assessment & Plan (1) Rectal adenocarcinoma: Plan: Rigoberto had seen something on television and sounding like a potential non chemotherapy treatment for rectal cancer and wanted to explore that We discussed that there are immune system and targeted options to treat rectal cancer that in appropriately selected patients may have significant responses. Unfortunately, I outlined that his molecular profiling does not suggest he would respond to any of those. I reiterated that there are some additional agents that we might consider though the response rates are marginal and I remain concerned in the absence of more definitive control of his abscess that they could lead to more complications than improvements. I did commit that we can continue to assess his recovery from immediate issues related to pain and potential pelvic infection. Once he is discharged from the hospital I would be delighted to get back together and review those options and perhaps if we do see further physical and infectious stabilization we might cau tiously trial some additional treatment approaches. Fundamentally, however, there are no options that are likely to lead to a dramatic and durable response we will have to continue to balance what we can do to best maintain quality of life in the short run (which is also quite important to him) with prudent exploration of any resumption of more definitive cancer treatment intervention. While he may not need hospice at this time, our overall discussions and framing of treatment choices will need to continue to recognize that the larger outcome will not be alterable and we need to make choices that appropriately maintain his quality on what will unfortunately be ultimately a limited duration road. Plan We will finalize optimization of pain management and at the appropriate time potentially transition from an inpatient intravenous antibiotic program to an outpatient oral 1. We will plan to reconvene as an outpatient with Rigoberto to reassess performance status and medical challenges and perhaps cautiously explore some limited additional treatment options. Admission and Anticipated Discharge Date Admission Date: February 25, 2022 Subjective Patient has moderate pain control and that remains his greatest concern. He actually seems more conversant today and clearly has been considering his options thoughtfully in the context of our initial conversation Physical Exam Physical Exam: Afebrile with stable vital signs. He does not seem to be in severe distress Results & Data Results & Data ([facility] [place]) Vital Signs (Past 12 Hours) Vital Signs Temp Pulse Resp BP Pulse Ox O2 Del Method 02/28/22 21:49 37.2 C 69 14 101/55 L 97 Room Air PG Care Time/CCT Total # of Minutes Spent Total Time Spent with Patient: Total time spent is greater than 50% in coordination of care (as documented) at patient's floor/unit and/or counseling patient: Coding Level of Care Code 75343 Subseq Hosp Care Lvl 1 Diagnoses Rectal adenocarcinoma C20
[2022-03-01] MEDS: FIRST - Mouthwash BLM 119 ML PO SCH ×4 (08:03→19:52)
[2022-03-01] MEDS: METOPROLOL SUCC 50MG EXT REL TAB PO SCH (08:24)
[2022-03-01] MEDS: ATORVASTATIN 10 MG TAB PO SCH (08:24)
[2022-03-01] MEDS: POLYETHYLENE (MIRALAX) 17 GM PACK PO SCH (08:24)
[2022-03-01] MEDS: SPIRONOLACTONE 25 MG TAB PO SCH (08:24)
[2022-03-01] MEDS: lisinopril 5 MG TAB PO SCH (08:24)
[2022-03-01] MEDS: FUROSEMIDE 40 MG TAB PO SCH (08:24)
[2022-03-01 09:46] LABS: BUN Creatinine Ratio 12.3 (10-20); C Reactive Protein 1.71 mg/dl (0-0.5); Calcium 8.9 mg/dl (8.5-10.1); Creatinine Clr Calc Pharmacy 99.6 ml/min; Est GFR (African American) 111.9 ml/min; Est GFR (Non-African American) 96.5 ml/min; Potassium 4.1 mmol/L (3.5-5.1)
[2022-03-01] MEDS: LIDOCAINE 5% OINT 30 GM TUBE EXT PRN ×2 (12:00→22:02)
--- NOTE | 2022-03-01 13:59 | Palliative Care Progress Note ---
Date of Service March 01, 2022 Assessment & Plan (1) Palliative care encounter: Plan: * Met rectal adeno ca with progression through FOLFOX + chemoradiation and now more progressive with FOLFIRI/bevacizumab. In speaking with Dr Keller, they reviewed that patient was inquiring possibly about immune system and targeted options however, unfortunately, Mr. Gold's molecular profiling does not suggest he would respond to these options. Additional salvage remedies would have marginal response rates and would likely lead to more complication given the absence of definitive abscess control. * worsening PS and ++resistant disease (2) Cancer related pain: Plan: * I have increased roxanol to 10mg PO q4h prn and added hold parameters for somnolence or resp rate below 14. * I advised pt the reason for liquid was solely because MSIR at 10mg dose is not available in tablet form. He replied "Well then that's just bullsh*t." (3) Advanced care planning/counseling discussion: Plan: * We discussed his conversation with Dr. Keller, with specific attention to the overall situation of declining PS + resistant disease. Pt states he has a lot of living he still wants to do specifically noting hunting. He wants to return to his home. he states he does not want to think about what he would want if no further cancer treatment options were available. He states thinking about that just brings him down and it is not needed at this junction. I asked him to think about what he would want from the perspective of the question "Where do you see yourself at the end of your life?" and he said he would want to be home. I advised him that at this stage with his advanced/terminal cancer and overall frailty, CPR will not provide any meaningful benefit and it is unlikely he would liberate from life support. he would definitely not recover to current baseline and would, if he survived to dc, need placement for LTC. He did not find this an acceptable option adding that he "will" return to his own house. I asked him what concerns or fears kept him from exploring these what ifs and planning for more adv illness. He did not answer right away but ultimately shared that it is scary overall and he doesn't like thinking about it. I gently encouraged him to begin thinking about some of these preferences, because we know as adv disease progresses, our ability to think clearly or engage meaningfully may diminish and then decision making falls to family/NOK who may not have as clear an insight into what patients want. I asked him to think about these issues from the perspective of helping inform his loved one of his wishes so they are empowered to advocate for him if he cannot do so on his own. We also briefly explored the implications of no further cancer treatment and what he would want then to which he indicated feeling unsure but at least knowing he would want to be home. * I shared cpr survival data with him: Only about 10% of patients who have [id number] sudden cardiac arrest survive to hospital discharge, with many survivors having neurologic impairment. This rate is even lower among patients with serious coexisting conditions, ie chance of survival to hospital discharge for in-hospital CPR in older people is low to moderate (15%) and decreases with age, comorbidities, performance status and frailty: for pts > 70 yo, more than half of the patients who initially survived resuscitation in the hospital before hospital discharge. The pooled survival to discharge after in-hospital CPR was 18% for patients between 70 and 79 years old, 15% for patients between 80 and 89 years old and 11% for patients of 90 years and older. (He JONES, Usman LJ, Candelario F, et al. Trends in short- and long-term survival among [id number] cardiac arrest patients alive at hospital arrival. Circulation 2014;130:9934-9028.and Yennifer C, Kizzy T, Felix R, et al. Performance of clinical risk scores to predict mortality and neurological outcome in cardiac arrest patients. Resuscitation 2019;136:21-29. ) * I shared with him that given his overall medical acuity + frailty, CPR would not offer meaningful, life saving benefit and we would not be able to get him back home at that stage with life support. (4) Rectal pain: Plan: Pain mgt modified as noted above (5) Rectal adenocarcinoma: Plan: progressive on 2 lines of therapy + resistant disease along with declining PS Plan Med changes and discussions as noted above. I encouraged pt to think about the adv illness issues through the weekend and we will plan to follow up in discussion on Friday. Aniyah Harkins DNP Clinical Director, Palliative Medicine Admission and Anticipated Discharge Date Admission Date: February 25, 2022 Subjective Pt seen for severe rectal cancer related pain and symptom mgt. He is not happy with current pain regimen, feels he is not being given the right dose. he is also update the roxanol is liquid and wants a pill. severe rectal pain has not abated much. describes it as a deep, searing burning pain, pulsing at times. continues to have higher than average output he met with Dr. Keller and tells me he understood from their discussion that he cannot have more of his current chemo and "they are going to figure out what else to give me." he states he knows from his research online there are other treatment options and he questions why those cannot be offered, when asked what those treatments were, he could not provide me with more specific information and told me I would be able to "look it up online like I did." Review of Systems Review of Systems: All systems reviewed & are unremarkable except as noted in Subjective Physical Exam Physical Exam: Thin elderly male, resting supine in bed, TV on very high volume He is AAOx3. His mood is irritable and frustrated He does not answer many questions except as noted above in HPI normal resp effort, lungs clear but slightly diminished, this is a limited anterior chest wall exam/pt limited cooperation +colostomy with brown liqid contents generalized weakness Insight is limited. AVoidant at times, tangential and +wishful thinking Results & Data ([facility]) Vital Signs (Past 12 Hours) Vital Signs Temp Pulse Resp BP Pulse Ox O2 Del Method 03/01/22 07:33 36.9 C 73 16 108/70 95 Room Air Laboratory Results Labs and imaging reviewed PG Care Time/CCT Total # of Minutes Spent Total Time Spent: 60 Total Time Spent with Patient: Total time spent is greater than 50% in coordination of care (as documented) at patient's floor/unit and/or counseling patient:yes Coding [place] [address] Subseq Hosp Care Lvl 3 Patient Type Established History Detailed Exam Detailed Medical Decision Making Moderate Complexity Diagnoses Palliative care encounter Z51.5 Cancer related pain G89.3 Advanced care planning/counseling discussion Z71.89 Rectal pain K62.89 Rectal adenocarcinoma C20
[2022-03-01] MEDS: MoRPHine SULFATE 2 MG/ML CARP IV PRN ×2 (15:18→21:57)
[2022-03-01] MEDS: MoRPHine SULFATE 10 MG/0.5 ML UDP PO PRN (19:42)
[2022-03-01] MEDS: GABAPENTIN 100 MG CAP PO SCH (19:51)
--- NOTE | 2022-03-01 20:15 | Hospitalist Progress Note ---
Date of Service March 01, 2022 Assessment & Plan (1) Rectal adenocarcinoma: Plan: Presented with severe rectal pain. CT a/p with abscess vs necrotic rectal cancer tissue vs both. Gen surg consultation and recs appreciated. Appreciate palliative care consultation and recs. Cont pain control, IV zosyn, serial exams, etc. Continue fentanyl patch. Cont morphine IV or PO prn. Cont IV zosyn. Perhaps change to augmentin next couple of days if stable (crp only 1.5). Cont lidocaine jelly prn to rectal area. Cont gabapentin. Rectal ca - stage 4 with mets to liver, bone, adrenal gland, etc. s/p diverting colostomy, radiation in the past. Most recent chemotherapy [address] Keller's consultation and his candid discussion with the patient regarding limited options for ongoing treatment and appropriateness of transitioning to hospice. Since needing surgery is very unlikely at this point, and patient is not ready to initiate hospice, will resume his Eliquis. (2) Atrial fibrillation status post cardioversion: Plan: Examines in NSR. Cont metoprolol 200 mg daily. Resume eliquis. (3) CAD (coronary artery disease): Plan: Nonobstructive. Continue metoprolol, statin. no ischemic symptoms. stop lisinopril as his BPs are low-normal. (4) CHF (congestive heart failure): Plan: Chronic diastolic CHF - compensated. Continue metoprolol, spironolactone, Lasix. Hold lisinopril. (5) Hyponatremia: Plan: chronic but stable Na today 133. urine osm, urine Na not c/w SIADH. low Na likely due to diuretic usage cont to trend (6) Colostomy status: Plan: schedule miralax daily to maintain stool output add colace/senna 1 tab BID Plan updated pt's daughter by phone this evening mucositis - cont magic mouthwash qid swish/spit cont PT, OT Admission and Anticipated Discharge Date Admission Date: February 25, 2022 Subjective no new issues overnight pain slightly better he reports that he slept ok last night pain was bad when he woke up however he also has worsening pain when he moves/ambulates he has long stretches of good pain control or no pain eating ok no abd pain no nausea rectal drainage continues Review of Systems Review of Systems: gen - no fever cv - no cp pulm - no dyspnea GI - no emesis Physical Exam Physical Exam: gen - NAD, awake, alert, comfortable mouth - MMM neck - no JVD heart - RRR, s1 s2, no murmur lungs - CTA b/l abd - soft NT ND BS+; colostomy present with small amount of brown stool in bag ext - no edema, pulses 2+ b/l psych - restricted affect Results & Data Results & Data ([facility]) Vital Signs (Past 12 Hours) Vital Signs Temp Pulse Resp BP Pulse Ox O2 Del Method 03/01/22 15:14 36.9 C 79 14 106/67 98 Room Air Laboratory Results Laboratory Results - last 24 hr 03/01/22 07:58 Sodium 133 L Potassium 4.1 Chloride 100 Carbon Dioxide 27 Anion Gap 6 BUN 8 Creatinine 0.65 Est Cr Clr Drug Dosing 99.6 Est GFR ( Amer) 111.9 Est GFR (Non-Af Amer) 96.5 BUN/Creatinine Ratio 12.3 Glucose 129 H Calcium 8.9 C-Reactive Protein 1.71 H PG Care Time/CCT Total # of Minutes Spent Total Time Spent with Patient: Total time spent is greater than 50% in coordination of care (as documented) at patient's floor/unit and/or counseling patient: Coding Level of Care Code 91539 Subseq Hosp Care Lvl 2 Diagnoses Rectal adenocarcinoma C20 Atrial fibrillation status post cardioversion I48.91 CAD (coronary artery disease) I25.10 CHF (congestive heart failure) I50.9 Hyponatremia E87.1 Colostomy status Z93.3
[2022-03-01] MEDS: APIXABAN 5 MG TABLET PO SCH (22:31)
[2022-03-01] MEDS: DOCUSATE SODIUM/SENNA 50/8.6MG TAB PO SCH (22:31)
[2022-03-02] MEDS: MoRPHine SULFATE 10 MG/0.5 ML UDP PO PRN ×6 (00:04→23:36)
[2022-03-02] MEDS: CHECK fentaNYL PATCH PLACEMENT SCH ×4 (00:05→20:16)
[2022-03-02] MEDS: MoRPHine SULFATE 2 MG/ML CARP IV PRN ×3 (03:46→15:41)
[2022-03-02] MEDS: PIPERACILLIN/TAZOBACTAM 3.375 GM in DEXTROSE 5% 100 ML IV SCH ×3 (03:48→20:08)
[2022-03-02] MEDS: LIDOCAINE 5% OINT 30 GM TUBE EXT PRN ×3 (07:24→20:16)
[2022-03-02] MEDS: FIRST - Mouthwash BLM 119 ML PO SCH ×4 (07:25→20:09)
[2022-03-02] MEDS: METOPROLOL SUCC 50MG EXT REL TAB PO SCH (08:04)
[2022-03-02] MEDS: FUROSEMIDE 40 MG TAB PO SCH (08:04)
[2022-03-02] MEDS: fentaNYL 25 MCG/HR TDSY TD SCH ×2 (08:04→10:36)
[2022-03-02] MEDS: SPIRONOLACTONE 25 MG TAB PO SCH (08:04)
[2022-03-02] MEDS: POLYETHYLENE (MIRALAX) 17 GM PACK PO SCH (08:04)
[2022-03-02] MEDS: APIXABAN 5 MG TABLET PO SCH ×2 (08:04→20:09)
[2022-03-02] MEDS: DOCUSATE SODIUM/SENNA 50/8.6MG TAB PO SCH ×2 (08:05→20:09)
[2022-03-02] MEDS ORDERED: fentaNYL 25 MCG/HR TDSY TD SCH (09:30)
[2022-03-02] MEDS: TAMSULOSIN HCL 0.4 MG CAP PO SCH (10:03)
[2022-03-02] MEDS: fentaNYL 12 MCG/HR TDSY TD SCH (10:35)
[2022-03-02] MEDS: [UNRECOGNIZED DRUG - REMARK] SCH (10:36)
--- NOTE | 2022-03-02 19:35 | Hospitalist Progress Note ---
Date of Service March 02, 2022 Assessment & Plan (1) Rectal adenocarcinoma: Plan: Presented with severe rectal pain. CT a/p with abscess vs necrotic rectal cancer tissue vs both. Gen surg consultation and recs appreciated. Appreciate palliative care consultation and recs. Cont pain control, IV zosyn, serial exams, etc. Continue fentanyl patch but will increase to 37mcg q72h given the frequency of IV/PO morphine usage and ongoing pain. Has not had fentanyl dose increase since January. Cont morphine IV or PO prn. Cont IV zosyn. Perhaps change to augmentin next couple of days if stable (crp only 1.5). Recheck CRP am. Cont lidocaine jelly prn to rectal area. Cont gabapentin. Rectal ca - stage 4 with mets to liver, bone, adrenal gland, etc. s/p diverting colostomy, radiation in the past. Most recent chemotherapy 10+ days ago. Appreciate Dr Keller's consultation and his candid discussion with the patient regarding limited options for ongoing treatment and appropriateness of transitioning to hospice. Since needing surgery is very unlikely at this point, patient is not ready to initiate hospice, and due to high risk of VTE his Eliquis was resumed. (2) Atrial fibrillation status post cardioversion: Plan: Examines in NSR. Cont metoprolol 200 mg daily. Resumed eliquis. (3) CAD (coronary artery disease): Plan: Nonobstructive. Continue metoprolol, statin. no ischemic symptoms. stopped lisinopril as his BPs are low-normal. (4) CHF (congestive heart failure): Plan: Chronic diastolic CHF - compensated. Continue metoprolol, spironolactone, Lasix. Hold lisinopril. (5) Hyponatremia: Plan: chronic but stable Na today 133. urine osm, urine Na not c/w SIADH. low Na likely due to diuretic usage cont to trend (6) Colostomy status: Plan: schedule miralax daily to maintain stool output cont colace/senna 1 tab BID (7) Urinary retention: Plan: likely 2nd to BPH in setting of heavy narcotic usage start flomax 0.4mg qam check PVR for surveillance and to ensure improvement if PVRs worsen - dugan Plan updated pt's daughter by phone yesterday evening mucositis - cont magic mouthwash qid swish/spit cont PT, OT Admission and Anticipated Discharge Date Admission Date: February 25, 2022 Subjective patient continues with episodes of severe rectal pain requiring frequent use of both IV & PO morphine had pain this am - resolved, then this afternoon ambulated to the bathroom and upon return had severe pain he is also having urinary retention - PVR 250cc states it has been going "on for a while" no new complaints otherwise Review of Systems Review of Systems: gen - no fever cv - no cp pulm - no dyspnea GI - no pain Physical Exam Physical Exam: gen - NAD, awake, alert; uncomfortable today mouth - MMM neck - no JVD heart - RRR, s1 s2, no murmur lungs - CTA b/l abd - soft NT ND BS+; colostomy present with moderate amount of brown stool in bag rectal - anal skin tags, small nonbleeding ext hemorrhoid, no gross blood ext - no edema, pulses 2+ b/l psych - awake/alert Results & Data Results & Data ([facility]) Vital Signs (Past 12 Hours) Vital Signs Temp Pulse Resp BP Pulse Ox O2 Del Method 03/02/22 14:06 36.9 C 73 14 110/70 97 Room Air PG Care Time/CCT Total # of Minutes Spent Total Time Spent with Patient: Total time spent is greater than 50% in coordination of care (as documented) at patient's floor/unit and/or counseling patient: Coding Level of Care Code 10854 Subseq Hosp Care Lvl 2 Diagnoses Rectal adenocarcinoma C20 Atrial fibrillation status post cardioversion I48.91 CAD (coronary artery disease) I25.10 CHF (congestive heart failure) I50.9 Hyponatremia E87.1 Colostomy status Z93.3 Urinary retention R33.9
[2022-03-02] MEDS: GABAPENTIN 100 MG CAP PO SCH (20:09)
[2022-03-03] MEDS: MoRPHine SULFATE 10 MG/0.5 ML UDP PO PRN ×5 (03:18→22:22)
[2022-03-03] MEDS: PIPERACILLIN/TAZOBACTAM 3.375 GM in DEXTROSE 5% 100 ML IV SCH ×3 (03:20→19:54)
[2022-03-03] MEDS: LIDOCAINE 5% OINT 30 GM TUBE EXT PRN ×2 (06:14→13:49)
[2022-03-03 06:57] LABS: BUN Creatinine Ratio 15.2 (10-20); C Reactive Protein 2.04 mg/dl (0-0.5); Creatinine Clr Calc Pharmacy 98.1 ml/min; Est GFR (African American) 111.2 ml/min; Est GFR (Non-African American) 95.9 ml/min; Potassium 4.2 mmol/L (3.5-5.1)
[2022-03-03] MEDS: FIRST - Mouthwash BLM 119 ML PO SCH ×4 (07:50→19:59)
[2022-03-03] MEDS: CHECK fentaNYL PATCH PLACEMENT SCH ×2 (07:50→15:54)
[2022-03-03] MEDS: METOPROLOL SUCC 50MG EXT REL TAB PO SCH (09:16)
[2022-03-03] MEDS: DOCUSATE SODIUM/SENNA 50/8.6MG TAB PO SCH ×2 (09:16→19:59)
[2022-03-03] MEDS: APIXABAN 5 MG TABLET PO SCH ×2 (09:16→19:58)
[2022-03-03] MEDS: TAMSULOSIN HCL 0.4 MG CAP PO SCH (09:17)
[2022-03-03] MEDS: SPIRONOLACTONE 25 MG TAB PO SCH (09:17)
[2022-03-03] MEDS: FUROSEMIDE 40 MG TAB PO SCH (09:17)
[2022-03-03] MEDS: POLYETHYLENE (MIRALAX) 17 GM PACK PO SCH (09:18)
[2022-03-03] MEDS: HEPARIN 100 UNIT/ML 5ML FLUSH FLUSH PRN ×3 (09:18→19:54)
[2022-03-03] MEDS ORDERED: KETOROLAC TROMETHAMINE 15 MG/ML VIAL IV ONE (15:22)
--- NOTE | 2022-03-03 15:23 | Hospitalist Progress Note ---
Date of Service March 03, 2022 Assessment & Plan (1) Rectal adenocarcinoma: Plan: Presented with severe rectal pain. CT a/p with abscess vs necrotic rectal cancer tissue vs both. Gen surg consultation and recs appreciated. Appreciate palliative care consultation and recs. Cont pain control, IV zosyn, serial exams, etc. Continue fentanyl patch; increase to 37mcg q72h on 03/02/22 given the frequency of IV/PO morphine usage and ongoing pain. Had not had fentanyl dose increase since January. Cont morphine IV or PO prn. Cont IV zosyn. Perhaps change to augmentin next couple of days if stable. Cont lidocaine jelly prn to rectal area. Cont gabapentin. Consider increase to 300mg HS. Rectal ca - stage 4 with mets to liver, bone, adrenal gland, etc. s/p diverting colostomy, radiation in the past. Most recent chemotherapy 10+ days ago. Appreciate Dr Keller's consultation and his candid discussion with the patient regarding limited options for ongoing treatment and appropriateness of transitioning to hospice. Since needing surgery is very unlikely at this point, patient is not ready to initiate hospice, and due to high risk of VTE his Eliquis was resumed. Gave toradol 10mg IV x 1 for additional pain relief. (2) Atrial fibrillation status post cardioversion: Plan: Examines in NSR. Cont metoprolol 200 mg daily. Resumed eliquis. (3) CAD (coronary artery disease): Plan: Nonobstructive. Continue metoprolol, statin. no ischemic symptoms. stopped lisinopril as his BPs are low-normal. (4) CHF (congestive heart failure): Plan: Chronic diastolic CHF - compensated. Continue metoprolol and lasix. Hold lisinopril. Hold aldactone as BPs are normal or low-normal. (5) Hyponatremia: Plan: chronic but stable Na today 130. urine osm, urine Na not c/w SIADH. low Na likely due to diuretic usage cont to trend (6) Colostomy status: Plan: schedule miralax daily to maintain stool output cont colace/senna 1 tab BID (7) Urinary retention: Plan: likely 2nd to BPH in setting of heavy narcotic usage start flomax 0.4mg qam check PVR for surveillance and to ensure improvement if PVRs worsen - dugan Plan updated pt's daughter by phone today mucositis - cont magic mouthwash qid swish/spit cont PT, OT dispo - home with his sister? other? I'm concerned about him living alone .... Admission and Anticipated Discharge Date Admission Date: February 25, 2022 Subjective no new issues overnight watching football on TV comfortable during the visit pain is most severe w/ ambulation much like other days otherwise he is comfortable eating well Review of Systems Review of Systems: gen - no fevers cv - no cp pulm - no dyspnea GI - no abd pain, nausea, emesis; ostomy working well with decent stool today Physical Exam Physical Exam: gen - NAD, awake, alert mouth - MMM neck - no JVD heart - RRR, s1 s2, no murmur lungs - CTA b/l abd - soft NT ND BS+; colostomy present with moderate amount of brown stool in bag ext - no edema, pulses 2+ b/l psych - awake/alert/oriented x 3 Results & Data Results & Data ([facility]) Vital Signs (Past 12 Hours) Vital Signs Temp Pulse Resp BP Pulse Ox O2 Del Method 03/03/22 12:00 36.8 C 86 15 108/71 98 Room Air 03/03/22 07:26 36.4 C L 73 16 114/66 97 Room Air Laboratory Results Laboratory Results - last 24 hr 03/03/22 05:53 Sodium 130 L Potassium 4.2 Chloride 96 L Carbon Dioxide 29 Anion Gap 5 BUN 10 Creatinine 0.66 Est Cr Clr Drug Dosing 98.1 Est GFR ( Amer) 111.2 Est GFR (Non-Af Amer) 95.9 BUN/Creatinine Ratio 15.2 Glucose 114 H Calcium 9.0 C-Reactive Protein 2.04 H PG Care Time/CCT Total # of Minutes Spent Total Time Spent with Patient: Total time spent is greater than 50% in coordination of care (as documented) at patient's floor/unit and/or counseling patient: Coding Level of Care Code 67129 Subseq Hosp Care Lvl 2 Diagnoses Rectal adenocarcinoma C20 Atrial fibrillation status post cardioversion I48.91 CAD (coronary artery disease) I25.10 CHF (congestive heart failure) I50.9 Hyponatremia E87.1 Colostomy status Z93.3 Urinary retention R33.9
[2022-03-03] MEDS: MoRPHine SULFATE 2 MG/ML CARP IV PRN (19:53)
[2022-03-03] MEDS: GABAPENTIN 100 MG CAP PO SCH (19:59)
[2022-03-04] MEDS: HEPARIN 100 UNIT/ML 5ML FLUSH FLUSH PRN (00:41)
[2022-03-04] MEDS: CHECK fentaNYL PATCH PLACEMENT SCH ×4 (00:41→23:42)
[2022-03-04] MEDS: LIDOCAINE 5% OINT 30 GM TUBE EXT PRN ×3 (00:44→23:42)
[2022-03-04] MEDS: PIPERACILLIN/TAZOBACTAM 3.375 GM in DEXTROSE 5% 100 ML IV SCH ×3 (04:55→20:46)
[2022-03-04] MEDS: MoRPHine SULFATE 10 MG/0.5 ML UDP PO PRN ×4 (05:13→20:55)
[2022-03-04 06:42] LABS: Calcium 9.1 mg/dl (8.5-10.1); Creatinine Clr Calc Pharmacy 99.6 ml/min; Est GFR (African American) 111.9 ml/min; Est GFR (Non-African American) 96.5 ml/min; Potassium 4.4 mmol/L (3.5-5.1)
[2022-03-04] MEDS: MoRPHine SULFATE 2 MG/ML CARP IV PRN ×2 (07:29→13:20)
[2022-03-04] MEDS: FIRST - Mouthwash BLM 119 ML PO SCH ×4 (08:00→20:46)
[2022-03-04] MEDS: METOPROLOL SUCC 50MG EXT REL TAB PO SCH (08:01)
[2022-03-04] MEDS: POLYETHYLENE (MIRALAX) 17 GM PACK PO SCH (08:01)
[2022-03-04] MEDS: FUROSEMIDE 40 MG TAB PO SCH (08:02)
[2022-03-04] MEDS: ATORVASTATIN 10 MG TAB PO SCH (08:02)
[2022-03-04] MEDS: TAMSULOSIN HCL 0.4 MG CAP PO SCH (08:02)
[2022-03-04] MEDS: DOCUSATE SODIUM/SENNA 50/8.6MG TAB PO SCH ×2 (08:02→20:47)
[2022-03-04] MEDS: APIXABAN 5 MG TABLET PO SCH ×2 (08:02→20:47)
--- NOTE | 2022-03-04 16:10 | Palliative Care Progress Note ---
Date of Service March 04, 2022 Assessment & Plan (1) Cancer related pain: Plan: Neuropathic by description. He seems to do better at night. Will add am dose of gabapentin. Continue adjuvant lidocaine topically. May need to increase prn morphine dose but will monitor with addition of am gabapentin to avoid excessive sedation. (2) Palliative care encounter: Admission and Anticipated Discharge Date Admission Date: February 25, 2022 Subjective Had good night last night with pain control. This afternoon, pain intensified to 10/10. He is using roxanol pretty much every four hours and has had 2 prn doses of IV morphine in addition to fentanyl patch which was increased to 37mcg over the weekend. Total OME in last 24 hours, approximately 130mg. He notes that lidocaine does help but is frustrated with not being able to use heat. He also notes that morphine, both IV and po, decrease pain from 10/10 to 5/10 for a few hours. He considers 5/10 to be a tolerable pain level. Review of Systems Review of Systems: ESAS Pain 2/3, 3/3 at worst Dyspnea 0/3 Nausea 0/3 Fatigue 2/3 Physical Exam Constitutional: no acute distress ENMT: Mouth: oral mucous membranes not dry Respiratory: normal respiratory effort; no labored breathing Gastrointestinal (Abdomen): colostomy with soft greenish brown stool Musculoskeletal: Extremities: + muscle atrophy Neurologic: Speech / Cognition: normal cognition Results & Data ([facility]) Vital Signs (Past 12 Hours) Vital Signs Temp Pulse Resp BP Pulse Ox O2 Del Method 03/04/22 14:49 97.9 F 90 18 108/68 98 Room Air 03/04/22 07:17 98.6 F 100 H 16 119/77 95 Room Air PG Care Time/CCT Total # of Minutes Spent Total Time Spent with Patient: Total time spent is greater than 50% in coordination of care (as documented) at patient's floor/unit and/or counseling patient: Coding Level of Care Code 46769 Subseq Hosp Care Lvl 2 Diagnoses Cancer related pain G89.3 Palliative care encounter Z51.5
--- NOTE | 2022-03-04 19:48 | Hospitalist Progress Note ---
Date of Service March 04, 2022 Assessment & Plan (1) Rectal adenocarcinoma: Plan: Presented with severe rectal pain. CT a/p with abscess vs necrotic rectal cancer tissue vs both. Gen surg consultation and recs appreciated. Appreciate palliative care consultation and recs. Cont pain control, IV zosyn, serial exams, etc. Continue fentanyl patch; increase to 37mcg q72h on 03/02/22 given the frequency of IV/PO morphine usage and ongoing pain. Had not had fentanyl dose increase since January. Cont morphine IV or PO prn. Cont IV zosyn. Perhaps change to augmentin on 03/05?? Cont lidocaine jelly prn to rectal area. Cont gabapentin. Consider increase to 300mg HS. Rectal ca - stage 4 with mets to liver, bone, adrenal gland, etc. s/p diverting colostomy, radiation in the past. Most recent chemotherapy 10+ days ago. Appreciate Dr Keller's consultation and his candid discussion with the patient regarding limited options for ongoing treatment and appropriateness of transitioning to hospice. Since needing surgery is very unlikely at this point, patient is not ready to initiate hospice, and due to high risk of VTE his Eliquis was resumed. Gave toradol 10mg IV x 1 on 03/03 with decent results. Consider a standing NSAID if his Eliquis is discontinued and/or he transitions to hospice as NSAID may cut down rectal inflammation (2) Atrial fibrillation status post cardioversion: Plan: Examines in NSR. Cont metoprolol 200 mg daily. Cont eliquis. Would stop eliquis if he transitions for formal hospice at d/c. (3) CAD (coronary artery disease): Plan: Nonobstructive. Continue metoprolol, statin. no ischemic symptoms. stopped lisinopril as his BPs have been low-normal. (4) CHF (congestive heart failure): Plan: Chronic diastolic CHF - compensated. Continue metoprolol and lasix. Hold lisinopril. Hold aldactone as BPs have been normal or low-normal. (5) Hyponatremia: Plan: chronic but stable Na today 131. urine osm, urine Na not c/w SIADH. low Na likely due to diuretic usage cont to trend (6) Colostomy status: Plan: cont miralax cont colace/senna 1 tab BID (7) Urinary retention: Plan: likely 2nd to BPH in setting of heavy narcotic usage started flomax 0.4mg qam check PVR for surveillance and to ensure improvement if PVRs worsen - dugan Plan updated pt's daughter at bedside today mucositis - cont magic mouthwash qid swish/spit cont PT, OT dispo - home with his sister? other? I'm concerned about him living alone .... I have voiced this several times to the patient He is still adamant about returning home Admission and Anticipated Discharge Date Admission Date: February 25, 2022 Subjective patient laying comfortably on his side during the visit his daughter was at bedside he states he was "ok" until about 0 today when rectal pain worsened still using IV morphine 2-3x's/day and PO morphine similarly or even 4+ times/day morphine brings pain down to about 5/10 yesterday I gave him 1x dose of toradol and he thought it was helpful eating well ambulating he is still hopeful for d/c to his home but he lives alone in the presence of his daughter I strongly encouraged him to live with his sister who has offered to have him come live w/ her he is not interested in this option Review of Systems Review of Systems: gen - no fevers cv - no orthopnea or cp pulm - no dyspnea GI - no abd pain; ostomy with moderate stool output; no N/V Physical Exam Physical Exam: gen - NAD, awake, alert, comfortable mouth - MMM; mucositis resolved neck - no JVD heart - RRR, s1 s2, no murmur lungs - CTA b/l abd - soft NT ND BS+; colostomy present with moderate amount of brown stool in bag ext - no edema, pulses 2+ b/l psych - awake/alert/oriented x 3 Results & Data Results & Data ([facility]) Vital Signs (Past 12 Hours) Vital Signs Temp Pulse Resp BP Pulse Ox O2 Del Method 03/04/22 14:49 36.6 C 90 18 108/68 98 Room Air Laboratory Results Laboratory Results - last 24 hr 03/04/22 05:44 Sodium 131 L Potassium 4.4 Chloride 98 Carbon Dioxide 27 Anion Gap 6 BUN 13 Creatinine 0.65 Est Cr Clr Drug Dosing 99.6 Est GFR ( Amer) 111.9 Est GFR (Non-Af Amer) 96.5 BUN/Creatinine Ratio 20.0 Glucose 97 Calcium 9.1 PG Care Time/CCT Total # of Minutes Spent Total Time Spent with Patient: Total time spent is greater than 50% in coordination of care (as documented) at patient's floor/unit and/or counseling patient: Coding Level of Care Code 28690 Subseq Hosp Care Lvl 2 Diagnoses Rectal adenocarcinoma C20 Atrial fibrillation status post cardioversion I48.91 CAD (coronary artery disease) I25.10 CHF (congestive heart failure) I50.9 Hyponatremia E87.1 Colostomy status Z93.3 Urinary retention R33.9
[2022-03-04] MEDS: GABAPENTIN 100 MG CAP PO SCH (20:47)
[2022-03-05] MEDS: MoRPHine SULFATE 10 MG/0.5 ML UDP PO PRN ×5 (00:53→19:33)
[2022-03-05] MEDS: PIPERACILLIN/TAZOBACTAM 3.375 GM in DEXTROSE 5% 100 ML IV SCH ×3 (04:33→20:48)
[2022-03-05] MEDS: CHECK fentaNYL PATCH PLACEMENT SCH ×2 (07:28→15:26)
[2022-03-05] MEDS: FIRST - Mouthwash BLM 119 ML PO SCH ×4 (07:28→20:51)
[2022-03-05] MEDS: TAMSULOSIN HCL 0.4 MG CAP PO SCH (08:27)
[2022-03-05] MEDS: DOCUSATE SODIUM/SENNA 50/8.6MG TAB PO SCH ×2 (08:28→20:52)
[2022-03-05] MEDS: METOPROLOL SUCC 50MG EXT REL TAB PO SCH (08:28)
[2022-03-05] MEDS: GABAPENTIN 100 MG CAP PO SCH ×2 (08:28→20:52)
[2022-03-05] MEDS: FUROSEMIDE 40 MG TAB PO SCH (08:28)
[2022-03-05] MEDS: APIXABAN 5 MG TABLET PO SCH ×2 (08:28→20:52)
[2022-03-05] MEDS: POLYETHYLENE (MIRALAX) 17 GM PACK PO SCH (08:28)
[2022-03-05] MEDS: fentaNYL 25 MCG/HR TDSY TD SCH (10:03)
[2022-03-05] MEDS: [UNRECOGNIZED DRUG - REMARK] SCH (10:03)
[2022-03-05] MEDS: fentaNYL 12 MCG/HR TDSY TD SCH (10:03)
[2022-03-05] MEDS: LIDOCAINE 5% OINT 30 GM TUBE EXT PRN ×2 (10:04→20:52)
[2022-03-05 10:05] LABS: Hematocrit (blood only) 33.7 % (40.1-51.0); Hemoglobin 11.1 g/dl (14.0-18.0); Mean Corpuscular Hemoglobin 29.4 pg (25.0-34.0); Mean Corpuscular Hgb Conc 32.9 g/dL (32.0-36.0); Mean Corpuscular Volume 89.4 fL (80.0-100.0); Mean Platelet Volume 8.4 fL (9.4-12.4); Platelet Count 283 K/uL (130-400); RDW Coefficient of Variation 14.2 % (11.5-14.5); RDW Standard Deviation 45.3 fL (36.4-46.3); Red Blood Count 3.77 M/uL (4.63-6.08); White Blood Count 3.33 K/ul (4.8-10.8)
[2022-03-05 10:27] LABS: BUN Creatinine Ratio 13.2 (10-20); Calcium 9.2 mg/dl (8.5-10.1); Creatinine Clr Calc Pharmacy 95.2 ml/min; Est GFR (African American) 109.8 ml/min; Est GFR (Non-African American) 94.7 ml/min; Potassium 4.2 mmol/L (3.5-5.1)
--- NOTE | 2022-03-05 12:14 | Palliative Care Progress Note ---
Date of Service March 05, 2022 Assessment & Plan (1) Cancer related pain: Plan: Continue adjuvant topical lidocaine and gabapentin. Continue oral morphine as needed. Parenteral morphine to be used only if oral ineffective. He continues on 37mcg of fentanyl patches. PRN use does not decrease with increase of fentanyl dose. (2) Palliative care encounter: Plan: Mr. Gold is talking about going home. We talked about him needing support at home but he does not feel that this is necessary. He has the option to stay with his sister and has done this in the past but he very much wants to return to his own home. We discussed having home care support and his reply was "We'll see." I did speak with his daughter, Sarina, and reviewed pain management regimen. She is concerned about him being at home alone but notes that he is very independent and prefers to be alone in his home. She, her aunt and cousin, will be checking on him. She is concerned about access to his home in winter weather. We discussed that may be the time to discuss staying with his sister again. We discussed ongoing palliative care follow up after discharge. He lives in [facility] and Sarina is familiar with Dr. Abebe. She will consider this. Admission and Anticipated Discharge Date Admission Date: February 25, 2022 Subjective Rates rectal pain as 5/10. Pain was severe this morning when he woke up but relieved with po morphine. Used prn morphine via IV x 2 in last 24 hours and po morphine x 5 in last 24 hours. He feels that current regimen is managing pain. Review of Systems Review of Systems: ESAS Pain 2/3 Dyspnea 0/3 Anxiety 0/3 Drowsiness 0/3 PPS 50% Physical Exam Constitutional: + thin; no acute distress Respiratory: normal respiratory effort; no labored breathing Gastrointestinal (Abdomen): colostomy Musculoskeletal: Extremities: + muscle atrophy Neurologic: Speech / Cognition: normal cognition Genitourinary: Continent Results & Data ([facility]) Vital Signs (Past 12 Hours) Vital Signs Temp Pulse Resp BP Pulse Ox O2 Del Method 03/05/22 07:20 Room Air 03/05/22 08:02 98.2 F 90 17 128/69 98 Room Air PG Care Time/CCT Total # of Minutes Spent Total Time Spent: 29 Total Time Spent with Patient: Total time spent is greater than 50% in coordination of care (as documented) at patient's floor/unit and/or counseling patient:goals of care, symptom management, patient and family education and support Coding Level of Care Code 98918 Subseq Hosp Care Lvl 2 Diagnoses Cancer related pain G89.3 Palliative care encounter Z51.5
--- NOTE | 2022-03-05 16:23 | Hospitalist Progress Note ---
Date of Service March 05, 2022 Assessment & Plan (1) Rectal adenocarcinoma: Plan: Presented with severe rectal pain. CT a/p with abscess vs necrotic rectal cancer tissue vs both. Gen surg consultation and recs appreciated-state abx therapy and if not improving, would need transfer to colorectal surgery or percutaneous drainage Appreciate palliative care consultation and recs. Pain control is improved Afebrile, no leukocytosis Continue fentanyl patch; increased to 37mcg q72h on 03/02/22 given the frequency of IV/PO morphine usage and ongoing pain. Had not had fentanyl dose increase since January. Cont morphine IV or PO prn. Received 8 days of IV zosyn.Will now change to augmentin and complete 14 day course on 03/11 Cont lidocaine jelly prn to rectal area. Cont gabapentin. Consider increase to 300mg HS. Rectal ca - stage 4 with mets to liver, bone, adrenal gland, etc. s/p diverting colostomy, radiation in the past. Most recent chemotherapy 10+ days ago. Appreciate Dr Keller's consultation and his candid discussion with the patient regarding limited options for ongoing treatment and appropriateness of transitioning to hospice. Since needing surgery is very unlikely at this point, patient is not ready to initiate hospice, and due to high risk of VTE his Eliquis was resumed. Gave toradol 10mg IV x 1 on 03/03 with decent results. Consider a standing NSAID if his Eliquis is discontinued and/or he transitions t o hospice as NSAID may cut down rectal inflammation (2) Atrial fibrillation status post cardioversion: Plan: Examines in NSR. Cont metoprolol 200 mg daily. Cont eliquis. (3) CAD (coronary artery disease): Plan: Nonobstructive. Continue metoprolol, statin. no ischemic symptoms. stopped lisinopril as his BPs have been low-normal. (4) CHF (congestive heart failure): Plan: Chronic diastolic CHF - compensated. Continue metoprolol and lasix. Hold lisinopril. Hold aldactone as BPs have been normal or low-normal. (5) Hyponatremia: Plan: chronic but stable Na up to 133 urine osm, urine Na not c/w SIADH. low Na likely due to diuretic usage cont to trend BMP in AM continue to hold home diuretics (6) Colostomy status: Plan: cont miralax cont colace/senna 1 tab BID (7) Urinary retention: Plan: likely 2nd to BPH in setting of heavy narcotic usage started flomax 0.4mg qam check PVR for surveillance and to ensure improvement if PVRs worsen - dugan Plan mucositis - cont magic mouthwash qid swish/spit-improved cont PT, OT dispo - encouraged pt to live with sister but he is opposed to this at this point. Family will be checking on him. Plan to discharge to home tomorrow Admission and Anticipated Discharge Date Admission Date: February 25, 2022 Subjective Pt had some severe pain this AM but better since then. Moving bowels, eating. No CP or SOB. Has been OOB to walk around the room twice today. Feels he'll be ready for discharge tomorrow. Review of Systems Review of Systems: All systems reviewed & are unremarkable except as noted in HPI & below Physical Exam Physical Exam: gen - NAD, awake, alert, comfortable heart - RRR, s1 s2, no murmur lungs - CTA b/l abd - soft NT ND BS+; colostomy present with has and stool in bag ext - no edema psych - awake/alert/oriented x 3 Results & Data Results & Data ([facility]) Vital Signs (Past 12 Hours) Vital Signs Temp Pulse Resp BP Pulse Ox O2 Del Method 03/05/22 15:38 36.9 C 98 H 16 118/72 97 Room Air 03/05/22 07:20 Room Air 03/05/22 08:02 36.8 C 90 17 128/69 98 Room Air Laboratory Results 03/05/22 09:51 03/05/22 09:51 PG Care Time/CCT Total # of Minutes Spent Total Time Spent with Patient: Total time spent is greater than 50% in coordination of care (as documented) at patient's floor/unit and/or counseling patient: Coding Level of Care Code 65809 Subseq Hosp Care Lvl 2 Diagnoses Rectal adenocarcinoma C20 Atrial fibrillation status post cardioversion I48.91 CAD (coronary artery disease) I25.10 CHF (congestive heart failure) I50.9 Hyponatremia E87.1 Colostomy status Z93.3 Urinary retention R33.9
[2022-03-05 21:30] VITALS: TEMP 98.1
[2022-03-06] MEDS: MoRPHine SULFATE 10 MG/0.5 ML UDP PO PRN ×3 (01:02→12:34)
[2022-03-06] MEDS: CHECK fentaNYL PATCH PLACEMENT SCH ×2 (01:02→08:25)
[2022-03-06] MEDS: HEPARIN 100 UNIT/ML 5ML FLUSH FLUSH PRN ×2 (01:03→08:24)
--- NOTE | 2022-03-06 07:31 | Hospitalist Progress Note ---
Date of Service March 05, 2022 Assessment & Plan (1) Rectal cancer: Plan: Broad issues of concerns about chemotherapy refractoriness and lack of highly effective alternatives to offer are as per previous notes. At this time our focus needs to be on optimizing his quality of life I do believe his medical decision-making capacity is intact and as such we need to respect his wishes even if they run counter to what we think would be completely "safe." If he does insist upon going to his own home he needs to be counseled about and take ownership of the risk that he could fall with severe and even life-threatening consequences. Nevertheless, there are few other things we can offer him at this point that would significantly enhance his quality of life beyond the ongoing pain management. Quite frankly, I could see myself making similar decisions as a personal rather than strictly scientific/medical assessment of my options. As per previous, I will be happy to convene with him after he finishes his antibiotics and we see whether he is without ongoing major suggestions of active infection. If so, we can once again explore whether there are any specific cancer treatment regimens that he would like to pursue though my advice will continue to be that it is more likely that we will cause harm and potential paradoxical like shortening than find any dramatic improvement with any of those absent a more dramatic and unexpected recovery of performance status in which case it might be more worthwhile to consider some additional options. Plan Discharge as soon as he is converted to oral antibiotics and has an effective outpatient regimen for pain management. Agree that it might be safer for him to go to rehab and/or ultimately aim to stay with his daughter or even better his sister but in trying to set the stage for best quality of life from his perspective, we may need to honor his desire to go to his own home so long as he has been specifically counseled about the dangers that that entails and accepts responsibility for the consequences. I will ask our staff to make him an appointment soon after Thanksgiving for follow-up discussions of management beyond that time Admission and Anticipated Discharge Date Admission Date: February 25, 2022 Subjective Patient reports that the pain is much improved on the current regimen and he is very intent on going to his own home. Physical Exam Physical Exam: Alert, cooperative, seems reasonably comfortable. His mental status seems completely intact and I do think he has capacity for medical decision-making. No acute changes overall Results & Data Results & Data ([facility]) Vital Signs (Past 12 Hours) Vital Signs Temp Pulse Resp BP Pulse Ox O2 Del Method 03/05/22 23:20 66 20 102/62 95 Room Air 03/05/22 19:30 Room Air 03/05/22 21:29 36.7 C 84 18 98/52 L 94 Room Air PG Care Time/CCT Total # of Minutes Spent Total Time Spent with Patient: Total time spent is greater than 50% in coordination of care (as documented) at patient's floor/unit and/or counseling patient: Coding Level of Care Code 36497 Subseq Hosp Care Lvl 1 Diagnoses Rectal cancer C20
[2022-03-06 08:22] VITALS: PULSE 83; O2SAT 92
[2022-03-06] MEDS: FIRST - Mouthwash BLM 119 ML PO SCH ×2 (08:23→12:34)
[2022-03-06] MEDS: FUROSEMIDE 40 MG TAB PO SCH (08:25)
[2022-03-06] MEDS: APIXABAN 5 MG TABLET PO SCH (08:25)
[2022-03-06] MEDS: GABAPENTIN 100 MG CAP PO SCH (08:25)
[2022-03-06] MEDS: TAMSULOSIN HCL 0.4 MG CAP PO SCH (08:26)
[2022-03-06] MEDS: METOPROLOL SUCC 50MG EXT REL TAB PO SCH (08:26)
[2022-03-06] MEDS: ATORVASTATIN 10 MG TAB PO SCH (08:26)
[2022-03-06] MEDS: DOCUSATE SODIUM/SENNA 50/8.6MG TAB PO SCH (08:31)
[2022-03-06] MEDS: POLYETHYLENE (MIRALAX) 17 GM PACK PO SCH (08:31)
[2022-03-06 08:58] LABS: BUN Creatinine Ratio 12.1 (10-20); Creatinine Clr Calc Pharmacy 111.7 ml/min; Est GFR (African American) 117.2 ml/min; Est GFR (Non-African American) 101.1 ml/min; Potassium 3.9 mmol/L (3.5-5.1)
[2022-03-06] MEDS ORDERED: AMOXICILLIN/CLAVULANATE 875 MG TAB PO SCH (09:00)
--- NOTE | 2022-03-06 12:55 | Discharge Summary ---
Date of Service March 06, 2022 Admission HPI Per Admitting Provider Rigoberto Gold is a 71-year-old male with metastatic colorectal cancer, CAD, diastolic HF and ischemic cardiomyopathy, and history of alcohol use disorder who is presenting today with worsening pain. 7 days ago, he underwent a round of chemotherapy and since then has developed burning pain sensation in his rectum. It is been incredibly comfortable, 10/10 at home and is unable to rest because of it. His oncologist released recently prescribed him a fentanyl patch and oxycodone immediate release which she has been taking every 4 hours with minimal alleviation of the pain. Due to the severity of his pain, he has not had much of an appetite and has been doing poorly with eating and drinking at home. He has an ostomy, without pain around the site, but does note decreased output which he attributes to poor intake. He has not had any fever or chills, melena or hematochezia, or abdominal pain. Upon arrival to the ED, he is mildly tachycardic otherwise vital signs within normal limits and stable. Labs significant for leukopenia and anemia, but fairly stable from previous labs. Tends to have a chronically low sodium, it is 132 today. Otherwise all labs within normal limits. CT of the abdomen and pelvis shows an interval development of pulmonary and hepatic metastatic disease, as well as a focal contained perforation/abscess in the anterior pararectal space, likely due to ulcerating tumor. Rectal mass and adrenal gland mass have decreased in size. There is focal erosion within the right T12 transverse process likely representing metastatic disease. Principal Diagnosis Perirectal abscess, Intractable rectal pain, Metastatic rectal cancer Hyponatremia Discharge Exam gen - NAD, awake, alert, comfortable heart - RRR, s1 s2, no murmur lungs - CTA b/l abd - soft NT ND BS+; colostomy present with has and stool in bag ext - no edema psych - awake/alert/oriented x 3 Discharge Data Allergies Allergy/AdvReac Type Severity Reaction Status Date / Time No Known Allergies Allergy Verified 02/25/22 15:12 Consultations 02/25/22 17:24 ED Decision to Admit Stat 02/25/22 19:59 Consult General Surgery Routine 02/25/22 20:08 Consult Palliative Care Routine 02/27/22 12:39 Consult Oncology Routine Ordered Studies 02/25/22 14:26 CT abd pelvis IV con only Stat Hospital Course (1) Rectal adenocarcinoma: Presented with severe rectal pain. CT a/p with abscess vs necrotic rectal cancer tissue vs both. Gen surg consultation and recs appreciated-state abx therapy and if not improving, would need transfer to colorectal surgery or percutaneous drainage Appreciate palliative care consultation and recs. Pain control is improved Afebrile, no leukocytosis Continue fentanyl patch; increased to 37mcg q72h on 03/02/22 given the frequency of IV/PO morphine usage and ongoing pain. Had not had fentanyl dose increase since January. Cont morphine PO prn severe breakthrough pain Received 8 days of IV zosyn then changed to augmentin and complete 14 day course on 03/11 Cont lidocaine jelly prn to rectal area. Cont gabapentin. Consider increase to 300mg HS as outpatient if needed Rectal ca - stage 4 with mets to liver, bone, adrenal gland, etc. s/p diverting colostomy, radiation in the past. Most recent chemotherapy 10+ days prior to admission Appreciate Dr Keller's consultation and his candid discussion with the patient regarding limited options for ongoing treatment and appropriateness of transitioning to hospice. Since needing surgery is very unlikely at this point, patient is not ready to initiate hospice, and due to high risk of VTE his Eliquis was resumed. Gave toradol 10mg IV x 1 on 03/03 with decent results. Consider a standing NSAID if his Eliquis is discontinued and/or he transitions to hospice as NSAID may cut down rectal inflammation -f/u with Surgery as outpatient as needed (2) Atrial fibrillation status post cardioversion: Examines in NSR. Cont metoprolol 200 mg daily. Cont eliquis. (3) CAD (coronary artery disease): Nonobstructive. Continue metoprolol, statin. no ischemic symptoms. stopped lisinopril as his BPs have been low-normal. (4) CHF (congestive heart failure): Chronic diastolic CHF - compensated. Continue metoprolol and lasix. dc lisinopril. dc aldactone as BPs have been normal or low-normal. (5) Hyponatremia: chronic but stable Na up to 133 urine osm, urine Na not c/w SIADH. low Na likely due to diuretic usage dc aldactone (6) Colostomy status: cont miralax daily cont colace/senna 1 tab BID (7) Urinary retention: likely 2nd to BPH in setting of heavy narcotic usage started flomax 0.4mg qam Plan mucositis - cont magic mouthwash qid swish/spit-improved cont PT, OT dispo - encouraged pt to live with sister but he is opposed to this at this point. Family will be checking on him. Plan to discharge to home today Total Time Total Time Spent Total Time Spent (In Minutes): 35 min Discharge Plan Discharge Items Patient Disposition: Home - Self-Care Reason For Visit: INTRACTABLE PAIN 2/2 METASTATIC CA Discharge Diagnosis: Perirectal abscess, Intractable pain, Metastatic rectal cancer Condition on Discharge: Fair Activity: As commented below Bathing: No limitations Exercise/Sports: As tolerated Non-emergency contact: Primary Care Provider and Oncologist Call non-emergency contact if: you have any medication questions, your symptoms worsen, your pain is not controlled, your pain is worsening and you have a fever Follow-up/Referrals: Emma Olivarez DO [Primary Care Provider] - (Please follow up within 1-2 weeks.) Matthew Keller MD [Physician] - 03/21/22 9:00 am (Please arrive 15 minutes prior to appointment time) Diet: Regular Addtl Attending Provider Instructions: You were admitted for an infection in the rectal area and treated with antibiotics and pain medication. Please finish out 5 more days of antibiotics for your infection. Your Fentanyl patch was increased to 37.5 mcg and you can use the liquid morphine concentrate solution as needed for breakthrough pain. Please follow up with your oncologist as scheduled to discuss future plans. Pending Studies at Discharge: No Stand-Alone Forms: My [facility] [employer], Smoking Cessation Medications and DC Order Prescriptions: New tamsulosin 0.4 mg Capsule 0.4 mg PO QAM Qty: 30 0RF amoxicillin-pot clavulanate 875-125 mg Tablet 1 tab PO BIDM Qty: 11 0RF fentanyl 37.5 mcg/hour patch 72 hour 1 patch transdermal Q72H Qty: 5 0RF morphine concentrate 100 mg/5 mL (20 mg/mL) Solution 10 mg PO Q4H PRN (Reason: breakthrough pain, severe) Qty: 30 0RF gabapentin 100 mg Capsule 100 mg PO BID Qty: 60 0RF polyethylene glycol 3350 17 gram/dose powder 17 g PO DAILY Qty: 119 0RF Rx Instructions: OTC sennosides-docusate sodium [Senokot-S] 8.6-50 mg Tablet 1 tab PO BID Qty: 60 0RF Rx Instructions: OTC lidocaine 5 % Ointment 1 applic EXT TID PRN (Reason: rectal pain) Qty: 30 0RF Rx Instructions: Please give bottle from hospital First - Mouthwash Blm [Magic Mouthwash] 5 ml PO ACHS PRN (Reason: mouth sores) Qty: 1 0RF Rx Instructions: Please give bottle from hospital Continued [id number] C-Mn [Glucosamine Chondroitin MaxStr] 500-400 mg capsule 1 cap PO DAILY ondansetron HCl 8 mg tablet 8 mg PO Q8H PRN (Reason: NAUSEA/VOMITING) prochlorperazine maleate [Compazine] 10 mg tablet 10 mg PO Q6H PRN (Reason: NAUSEA/VOMITING) furosemide 40 mg tablet 40 mg PO QAM Qty: 90 3RF Eliquis 5 mg tablet 5 mg PO BID Qty: 180 3RF metoprolol succinate 200 mg tablet extended release 24 hr 200 mg PO QAM Qty: 90 3RF acetaminophen [Tylenol] 325 mg tablet 650 mg PO Q6H PRN (Reason: Pain) silver sulfadiazine [Silvadene] 1 % cream 1 applic topical BID PRN (Reason: Skin Irritation) Rx Instructions: apply a 1.5 mm thickness atorvastatin 10 mg tablet 10 mg PO 3XWK Label Comments: takes at hs Rx Instructions: TAKES MON, WED, & FRI. nystatin 100,000 unit/gram powder 1 applic topical BID PRN (Reason: Skin Irritation) Discontinued spironolactone 25 mg tablet 25 mg PO DAILY Qty: 90 3RF lisinopril 5 mg tablet 5 mg PO DAILY Qty: 90 3RF fentanyl 25 mcg/hr patch 72 hour 25 mcg transdermal .Q3DAYS oxycodone 5 mg tablet 5 mg PO .Q4-6HR PRN (Reason: Pain) Discharge Orders: Discharge Order (Routine); Ordered 03/06/22 Ordered By: Bess Navarro Admission Data Admit Date/Time: 02/25/22 20:03 Attending Provider: Bess Navarro Admit Provider: Khanh Cuellar Primary Care Provider: mEma Olivarez Other Providers: Khanh Cuellar ; Julián Duenas ; Lisa Shaw ; aMtthew Keller Coding Level of Care Code D/C DAY MANAGEMENT >30 MINS Diagnoses Rectal adenocarcinoma C20 Atrial fibrillation status post cardioversion I48.91 CAD (coronary artery disease) I25.10 CHF (congestive heart failure) I50.9 Hyponatremia E87.1 Colostomy status Z93.3 Urinary retention R33.9
[2022-03-06 14:24] VITALS: BP 121/74
== END 2022-03-06 18:32 | disposition home or self-care (01) | DRG 394 ==
LOC: ED 13:57 → 3E 20:03 → SUATTDRO 20:03 → 3E 22:00

== ENCOUNTER 2022-03-16 11:44 | Inpatient (IN) ==
[2022-03-16] MEDS ORDERED: fentaNYL 50 MCG/HR TDSY TD STA ×2 (11:55→12:13)
--- NOTE | 2022-03-16 13:47 | History & Physical Report ---
Date of Service March 16, 2022 Assessment & Plan (1) Comfort measures only status: Plan: Comfort measures only Discussed with patient and daughter. Patient is frustrated by his pain, reports he is here for improved pain control. Has enrolled in hospice and had 1 meeting, wishes to continue hospice goals of care and comfort measure goals on inpatient. Due to poorly controlled pain and increased doses at home was recommended by hospice yesterday to present to the hospital for medication reevaluation, per daughter patient was resistant to this as would like to remain out of the hospital but ultimately had more spasms today and agreed to admission. See HPI, daughter also notes that while family's been trying very hard to honor his wishes he has not been functional at home, does not have 24- hour care, and especially given his difficulty with pain control which limits his ambulation and abilities to care for himself anticipate him moving into a different environment; his sister has a 1 floor home that he can likely go to on discharge. Would like case management and palliative reconsulted specifically for evaluation of potential pain pump Patient did have fentanyl patch increased to 50 mcg, and is on morphine 15 mg p.o. every 2 hours with intermittent spasmodic pain. Patient has not had any sedation/somnolence/evidence of narcosis at this dose We will continue increase fentanyl patch dosing, past medication requirements reviewed will reinitiate morphine 2 mg IV every 30 minutes consult palliative. Patient and daughter confirm that they are not interested in surgical/treatment interventions at this time consistent with prior wishes. They know he is at increased risk of perforation and abdominal complications, but have discussed his prognosis and progression extensively with Dr. Keller and I agree with comfort measures and symptomatic treatment only at this time Fentanyl patch, morphine IV, Zofran, Ativan as needed ordered MiraLAX twice daily given somewhat thick stool. Patient and daughter endorse that he has had some with thickened stool that benefits with the MiraLAX, but his spasms did not seem much better even when he was having normal/good output with MiraLAX earlier in the week. Rectal adenocarcinoma Rectal cancer, stage IV with metastasis to bone, liver, adrenal glands. Patient with diverting colostomy which is in place, draining slightly firm brown material Patient has followed up with Dr. Keller, comfort measures/hospice goals and deferring surgical/chemotherapeutic options at this time He is continued on Eliquis at this time after discussions with his hospice provider limiting NSAID use for rectal inflammation Pain control as noted in PROCESS DEVELOPMENT ASSOCIATE Atrial fibrillation s/p cardioversion Continued on metoprolol, Eliquis. Telemetry deferred in the setting of PROCESS DEVELOPMENT ASSOCIATE goals, patient is regular and with normal rate on admitting exam Chronic compensated diastolic CHF Metoprolol on daily Lasix continued. Lisinopril and spironolactone discontinued at prior discharge, patient remains normotensive with reasonable euvolemia Urinary retention Flomax continued Prophylaxis: Anticoagulated Diet: Regular Disposition: Medical surgical for pain control CODE STATUS: DNR/DNI with comfort goals of care (2) Cancer related pain: (3) Hyponatremia: (4) Cancer-related breakthrough pain: (5) Rectal cancer: (6) Atrial fibrillation status post cardioversion: (7) CAD (coronary artery disease): History of Present Illness Primary Care Provider: Emma Olivarez DO Rigoberto is a 71-year-old male with a past medical history of metastatic colorectal cancer, CAD, diastolic CHF with ischemic cardiomyopathy, history of alcohol use disorder in remission since 2014 recently discharged 03/06/2022 to hospice who presents with poorly controlled pain and inadequate support at home. No At prior discharge additional support at home was discussed with patient, did not feel this was necessary at the time and noted that he was very independent and preferred to be alone in his home. Patient lives in [facility]. At bedside: Sharp pain in his ribs and at his ostomy site. Cannot move when getting up and down. Laid around at home for 6 days and too tired, so came in to get managed. Has some help at home from cousins and daughter. Daughter's name is Sarina. Hospice enrolled. Not sure what agency, as through [place]. Thinks is [employer]. Has only been with them for the week and saw once, reported his increased pain but was recommended to go to the hospital for adjustments. Was going to go to [facility] [place] but was then recommended to come to [facility] since he was recently discharged. Has spasm of pain which sometimes make him yell out. Each spasm can be 10/10, lasting a few seconds and sometimes aches after and lasts up to a minute or so. Pain resolves with rest and laying still, but due to his pain he has not been active at home an dable to do normal IADLs. NO chest pain or shortness of breath No fevers, chills No nausea or vomiting Ostomy output has not changed. Generally liquid with some brownish material. Some rectal discharge which ahs not changed in the last week 2/2 his tumor. W/ daughter/mPOA discussed via phone: Reports overall at rest his pain is adequately controlled, but intermittently has spasms throughout the day around his ostomy which jumped to a 10 out of 10 pain and are worsened with movement causing him to be less ambulatory than he expected. Reports overall the spasms are similar than when he was discharged last week, maybe a little bit worse since being home but overall similar. Reports is frustrating for him because he did not want to be in bed, and would like more aggressive pain control. Reports that he did discuss this with hospice, but due to already being increased on pain control and not having 24- hour in the cast was recommended for review of his home plan and hospital management of his current pain. Discussed with patient and patients daughter Yee vásquez by phone. She reports she has been trying very hard to honor his wishes. Notes she is aware that he wants to be home but 'had been bad for him and for everyone else, he shouldn't be alone with what he needs.' He is getting pian in more places now that he is off treatment. Has been on the couch for three days and knows it will progress with the cancer. Hospice had mentioned evaluation for a morphine pump due to his pain being very hard to control and he had much better control in the hospital, but after discharge was not optimized and 'the 15 mg every four hours and patch is just not helping him. He is completely sharp and coherant, but still in terrible pain.' Still can't move around enough. Is interseted in methadone vs pain pump vs alternative pain control options and also want to get him to a better home environment. His daughter notes 'His choices aren't ones he likes, but need to see how functional he can be to know what those are. His sister does have a 1 story home. We are just there for pain management, not treatment and we do not want treatments or surgery, but do want need pain control.' They note that they discussed extensively with alternative options with Dr. Keller, and have deferred surgical interventions and further cancer treatments at this time. They are aware that he is high risk for perforation and progressive abscess, while he would be agreeable to fluid and antibiotics do not want other aggressive treatments and would like to continue PROCESS DEVELOPMENT ASSOCIATE goals of care Prior pain review: 02/27: 25mcg Q72 fentanyl 02/26: 2mg IV q30m morphine 02/28 + 5mg oral morphine [id number] Medical History: Reviewed Medications: Reviewed Surgical History: Reviewed Allergies: Reviewed Social History: Reviewed Code Status: Reviewed, DNR/DNI/PROCESS DEVELOPMENT ASSOCIATE Allergies Allergy/AdvReac Type Severity Reaction Status Date / Time No Known Allergies Allergy Verified 02/25/22 15:12 Home Medications Medication Instructions Recorded Confirmed Type acetaminophen 325 mg tablet 650 mg PO Q6H PRN Pain 03/01/21 03/16/22 History (Tylenol) furosemide 40 mg tablet 40 mg PO QAM #90 tabs 04/02/21 03/16/22 Rx [id number]-[id number]-ljh C-Mn 500 1 cap PO DAILY 09/04/21 03/16/22 History mg-400 mg capsule (Glucosamine Chondroitin Maximum Strength) ondansetron HCl 8 mg tablet 8 mg PO Q8H PRN NAUSEA/VOMITING 09/04/21 03/16/22 History prochlorperazine maleate 10 mg 10 mg PO Q6H PRN NAUSEA/VOMITING 09/04/21 03/16/22 History tablet (Compazine) apixaban 5 mg tablet (Eliquis) 5 mg PO BID #180 tabs 10/02/21 03/16/22 Rx atorvastatin 10 mg tablet 10 mg PO 3XWK 02/25/22 03/16/22 History metoprolol succinate 200 mg 200 mg PO QAM #90 tabs 02/25/22 03/16/22 Rx tablet,extended release 24 hr gabapentin 100 mg capsule 100 mg PO BID #60 caps 03/06/22 03/16/22 Rx lidocaine 5 % topical ointment 1 applic EXT TID PRN rectal pain 03/06/22 1 05/16/21 Rx #30 grams polyethylene glycol 3350 17 17 g PO DAILY #119 grams 03/06/22 03/16/22 Rx gram/dose oral powder dexamethasone 2 mg tablet 2 mg PO DAILY 03/16/22 03/16/22 History fentanyl 50 mcg/hr transdermal 1 patch transdermal Q72H 03/16/22 03/16/22 History patch morphine concentrate 100 mg/5 mL 15 mg PO Q2H PRN breakthrough 03/16/22 03/16/22 History (20 mg/mL) oral solution pain, severe tamsulosin 0.4 mg capsule 0.4 mg PO BID 03/16/22 03/16/22 History Past Med/Surg History Medical History Alcoholism Quit 2014 Atrial fibrillation status post cardioversion Cardioversion with amiodarone 2014 On warfarin daily--follows with Dr. 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 Dr. Nogueira 03/12/21 S/P colostomy Diagnostic laparoscopy, laparoscopic diverting loop sigmoid colostomy on 01/30/[address] 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: No Beliefs That Will Affect Care: None marital status: Current Living Situation: Alone Current Living Situation Comment: Lives alone in 2 story house, daughter lives close current occupational status: retired current occupation: [employer] work How many Children do You have: 1 Feels Safe at Home: Yes Childhood Exposure to Second-Hand Smoke: No caffeine: No during the past year weight has: decreased > 10 lbs Seatbelt Use: never Assistive Devices: None Review of Systems Review of Systems: All systems reviewed & are unremarkable except as noted in HPI & below Physical Exam Physical Exam: General: A&Ox3. NAD. Cooperative. Alert and comfortable, periodically has pain which caused him to yell out. No pain in between spasms HEENT: Atraumatic, normocephalic. Vision and hearing grossly intact Pulm: CTAB A&P. -wheezes, -rales, -rhonchi. Symmetrical chest rise. No increase in work of breathing. No respiratory distress. Cardiac: RRR, -mrg. Radial pulses intact and symmetrical. Abdominal: Colostomy bag in place draining thick brownish stool, no blood/purulence. Abdomen is nontender on light palpation, nonrigid, and without rebound tenderness, patient does have some mild pain on deep palpation on the left side of his ostomy bag which is much less severe than his spasms and which did not exacerbate a spasm or reproduce his 10/10 pain at time of bedside assessment. Results & Data Results & Data ([facility]) Vital Signs (Past 12 Hours) Vital Signs Temp Pulse Resp BP Pulse Ox O2 Del Method 03/16/22 11:52 37.3 C 90 18 133/81 95 Room Air PG Care Time/CCT Total # of Minutes Spent Total Time Spent with Patient: Total time spent is greater than 50% in coordination of care (as documented) at patient's floor/unit and/or counseling patient: Coding Level of Care Code INT OBSERVATION CARE 50M LVL 2 Diagnoses Comfort measures only status Z51.5 Cancer related pain G89.3 Hyponatremia E87.1 Cancer-related breakthrough pain G89.3 Rectal cancer C20 Atrial fibrillation status post cardioversion I48.91 CAD (coronary artery disease) I25.10
[2022-03-16] MEDS: dexAMETHasone 1 MG TAB PO SCH (15:48)
[2022-03-16] MEDS ORDERED: CHECK fentaNYL PATCH PLACEMENT SCH (16:00)
[2022-03-16] MEDS ORDERED: LORazepam 0.5 MG TAB PO PRN (18:40)
[2022-03-16] MEDS ORDERED: ONDANSETRON 4 MG OD TAB SL PRN (18:40)
[2022-03-16] MEDS ORDERED: ONDANSETRON INJ 2 MG/ML 2 ML VIAL IV PRN (18:40)
[2022-03-16] MEDS: MoRPHine SULFATE 2 MG/ML CARP IV PRN (20:07)
[2022-03-16] MEDS: TAMSULOSIN HCL 0.4 MG CAP PO SCH (20:14)
[2022-03-16] MEDS: APIXABAN 5 MG TABLET PO SCH (20:15)
[2022-03-16] MEDS: DICYCLOMINE HCL 20 MG TAB PO SCH (20:15)
[2022-03-16] MEDS: GABAPENTIN 100 MG CAP PO SCH (20:15)
[2022-03-16] MEDS: POLYETHYLENE (MIRALAX) 17 GM PACK PO SCH (20:16)
[2022-03-16] MEDS: CHECK fentaNYL PATCH PLACEMENT SCH (20:18)
[2022-03-17] MEDS: CHECK fentaNYL PATCH PLACEMENT SCH ×4 (00:02→23:25)
[2022-03-17] MEDS: MoRPHine SULFATE 2 MG/ML CARP IV PRN ×5 (00:05→15:43)
--- NOTE | 2022-03-17 06:39 | Emergency Department Note ---
Impression & Plan Cancer-related breakthrough pain, S/P colostomy, Rectal adenocarcinoma ED Provider Note CHIEF COMPLAINT: Abdominal pain, hospice HISTORY OF PRESENT ILLNESS: This 71 yo male patient presents to the emergency department with c/o abd pain. Patient has a history of metastatic rectal cancer has a colostomy in place. Patient is having difficulty getting his pain under control and states it is an intermittent stabbing type sensation. He was recently admitted to the hospital and does have hospice care at home. He is on a fentanyl patch and according to his daughter is currently at 50 mcg with oral morphine titrated as needed. He supposed be taking this every 2 hours but takes it every 4 hours. The patient's daughter states that the patient is not able to function due to the pain. Lives at home by himself and manages a wooden fire to stay warm. The patient has refused to move to his discharge home or to a long term for further care. The patient states he is hoping to get better pain control so that he is more functional. Family does check on the patient several times a day. He has not been eating or drinking much over the last several days due to the increase in pain. Of note the patient was recently hospitalized for similar pain REVIEW OF SYSTEMS: A review of systems was performed with positives and pertinent negatives listed in the history of present illness. 10 systems were reviewed and are otherwise negative. ALLERGIES: see below MEDICATIONS: see below PMH: see below SOCIAL HISTORY: see below DDx: Metastatic cancer pain, bowel obstruction, hernia, diverticulitis, ischemic bowel, perforation, abscess, most others PHYSICAL EXAM: Vital signs reviewed. General: Elderly, somewhat ill-appearing 71-year-old male, in no significant distress. HEENT: No scleral icterus, PERRLA, neck supple. Atraumatic. Cardiovascular: Regular rate and rhythm, no extra sounds. Pulmonary: Clear to auscultation bilaterally, normal work of breathing. Abdomen: Soft, diffuse tenderness without rebound or guarding, nondistended, positive bowel sounds. Colostomy in place Musculoskeletal: Atraumatic, no peripheral edema. Neurologic: Patient awake alert and oriented x 3, speech is clear Skin: Warm, dry, no rash EMERGENCY DEPARTMENT COURSE/MDM: This patient was evaluated and appeared to be in some discomfort but no distress. Patient's final patch was changed. He does seem to have intermittent stabbing type pains, and then will rest comfortably watching TV. I did speak with the patient's daughter, case management spoke with hospice nurse. At this point the patient lives at home by himself and declines further intervention but needs additional pain control. He will be evaluated with hospitalist service for further management. DISPOSITION: Admission Past Med/Surg History Medical History Alcoholism Quit 2014 Atrial fibrillation status post cardioversion Cardioversion with amiodarone 2014 On warfarin daily--follows with Dr. Dominguez CAD (coronary artery disease) Nonobstructive per 2014 cardiac cath per cardio records CHF (congestive heart failure) Dyslipidemia Hearing deficit Hypertension prison (current) use of anticoagulants Rectal adenocarcinoma (01/26/21) Reason for port placement Thrombus of left atrial appendage Noted in 2014 - on Warfarin since that time Surgical History History of cardiac cath (~2014) no stents History of oral surgery Hx of colonoscopy Port-A-Cath in place (03/12/21) Access port placement. Dr. Nogueira 03/12/21 S/P colostomy Diagnostic laparoscopy, laparoscopic diverting loop sigmoid colostomy on 01/30/[address] [place] [facility] [place] History Father , 68yo Alcoholism Hypertension Stroke Smoker Mother , 72yo COPD (chronic obstructive pulmonary disease) Heart disease Sister COPD (chronic obstructive pulmonary disease) Hypertension Sister Glaucoma Daughter Cardiomyopathy Heart disease Aunt Stroke Other No family history of adverse response to anesthesia Social History Smoking Status: Former smoker Tobacco Type: Smokeless Tobacco (Dip or Chew) Second Hand Exposure: No; Hx Alcohol Use: Yes (alcoholism) Hx Substance Use: No Preferred Language: Greek Communication Ability: Effective 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 Beliefs That Will Affect Care: None marital status: / Current Living Situation: Alone Current Living Situation Comment: Lives alone in 2 story house, daughter lives close current occupational status: retired current occupation: [employer] work How many Children do You have: 1 Feels Safe at Home: Yes Childhood Exposure to Second-Hand Smoke: No caffeine: No during the past year weight has: decreased > 10 lbs Seatbelt Use: never Assistive Devices: None Allergies Allergies Allergy/AdvReac Type Severity Reaction Status Date / Time No Known Allergies Allergy Verified 02/25/22 15:12 Home Meds Home Medications Medication Instructions Recorded Confirmed acetaminophen 325 mg tablet 650 mg PO Q6H PRN Pain 03/01/21 03/16/22 (Tylenol) ondansetron HCl 8 mg tablet 8 mg PO Q8H PRN NAUSEA/VOMITING 09/04/21 03/16/22 prochlorperazine maleate 10 mg 10 mg PO Q6H PRN NAUSEA/VOMITING 09/04/21 03/16/22 tablet (Compazine) dexamethasone 2 mg tablet 2 mg PO DAILY 03/16/22 03/16/22 tamsulosin 0.4 mg capsule 0.4 mg PO BID 03/16/22 03/16/22 Previous Rx's Medication Instructions Recorded furosemide 40 mg tablet 40 mg PO QAM #90 tabs 04/02/21 apixaban 5 mg tablet (Eliquis) 5 mg PO BID #180 tabs 10/02/21 metoprolol succinate 200 mg 200 mg PO QAM #90 tabs 02/25/22 tablet,extended release 24 hr gabapentin 100 mg capsule 100 mg PO BID #60 caps 03/06/22 lidocaine 5 % topical ointment 1 applic EXT TID PRN rectal pain 03/06/22 #30 grams polyethylene glycol 3350 17 17 g PO DAILY #119 grams 03/06/22 gram/dose oral powder dicyclomine 20 mg tablet 20 mg PO TID #90 tabs 03/22/22 Results & Data (ED) Vital Signs Vital Signs - 24 hr 03/16/22 11:52 03/16/22 13:52 Temperature 37.3 C Temperature Source Oral Pulse Rate 90 Pulse Rate [Apical] 82 Respiratory Rate 18 18 Blood Pressure 133/81 Blood Pressure [Left Arm] 116/85 Blood Pressure Mean 98 Blood Pressure Mean [Left Arm] 95 Pulse Oximetry 95 95 Oxygen Delivery Method Room Air Room Air Sepsis Recent Fever Within 48 Hours No Sepsis New/Unexplained Change in Mental Status No Sepsis Action Taken by Nursing No Action Required Home Medications Current Medication List: was personally reviewed by me Laboratory Data Attestation: I reviewed the patient's lab results. Lab Results 03/16/22 Range/Units 15:53 SARS-CoV-2, RNA, NAAT NEGATIVE (NEGATIVE) Administered Medications Discontinued Medications Acetaminophen (Acetaminophen 325 Mg Tab) 650 mg PO Q6H PRN PRN Reason: Pain Stop: 04/15/22 18:39 Last Admin: 03/22/22 12:34 Dose: 650 mg Documented By: Admin: 03/21/22 11:20 Dose: 650 mg Documented By: Admin: 03/21/22 02:45 Dose: 650 mg Documented By: JEAN CLAUDE Admin: 03/20/22 20:24 Dose: 650 mg Documented By: JEAN CLAUDE Admin: 03/20/22 03:07 Dose: 650 mg Documented By: JEAN CLAUDE Admin: 03/19/22 02:22 Dose: 650 mg Documented By: JEAN CLAUDE Apixaban (Apixaban 5 Mg Tablet) 5 mg PO BID EARLENE Stop: 04/15/22 20:59 Last Admin: 03/22/22 07:45 Dose: 5 mg Documented By: Admin: 03/21/22 19:42 Dose: 5 mg Documented By: Admin: 03/21/22 08:49 Dose: 5 mg Documented By: Admin: 03/20/22 20:21 Dose: 5 mg Documented By: JEAN CLAUDE Admin: 03/20/22 10:03 Dose: 5 mg Documented By: Admin: 03/19/22 20:18 Dose: 5 mg Documented By: JEAN CLAUDE Admin: 03/19/22 08:01 Dose: 5 mg Documented By: Admin: 03/18/22 20:18 Dose: 5 mg Documented By: JEAN CLAUDE Admin: 03/18/22 09:39 Dose: 5 mg Documented By: Admin: 03/17/22 20:41 Dose: 5 mg Documented By: Admin: 03/17/22 09:14 Dose: 5 mg Documented By: Admin: 03/16/22 20:15 Dose: 5 mg Documented By: ANGELICA Dexamethasone (Dexamethasone 1 Mg Tab) 2 mg PO DAILY EARLENE Stop: 04/15/22 14:59 Last Admin: 03/22/22 07:45 Dose: 2 mg Documented By: Admin: 03/21/22 08:50 Dose: 2 mg Documented By: Admin: 03/20/22 10:03 Dose: 2 mg Documented By: Admin: 03/19/22 08:01 Dose: 2 mg Documented By: Admin: 03/18/22 09:39 Dose: 2 mg Documented By: Admin: 03/17/22 09:14 Dose: 2 mg Documented By: Admin: 03/16/22 15:48 Dose: 2 mg Documented By: KYLER Dicyclomine HCl (Dicyclomine Hcl 20 Mg Tab) 20 mg PO BID EARLENE Stop: 04/15/22 20:59 Last Admin: 03/17/22 09:13 Dose: 20 mg Documented By: Admin: 03/16/22 20:15 Dose: 20 mg Documented By: ANGELICA Dicyclomine HCl (Dicyclomine Hcl 20 Mg Tab) 20 mg PO TID EARLENE Stop: 04/16/22 13:59 Last Admin: 03/22/22 07:44 Dose: 20 mg Documented By: Admin: 03/21/22 19:43 Dose: 20 mg Documented By: Admin: 03/21/22 13:25 Dose: 20 mg Documented By: Admin: 03/21/22 08:49 Dose: 20 mg Documented By: Admin: 03/20/22 20:21 Dose: 20 mg Documented By: JEAN CLAUDE Admin: 03/20/22 14:24 Dose: 20 mg Documented By: Admin: 03/20/22 10:02 Dose: 20 mg Documented By: Admin: 03/19/22 20:18 Dose: 20 mg Documented By: JEAN CLAUDE Admin: 03/19/22 14:44 Dose: 20 mg Documented By: Admin: 03/19/22 08:01 Dose: 20 mg Documented By: Admin: 03/18/22 20:18 Dose: 20 mg Documented By: JEAN CLAUDE Admin: 03/18/22 13:45 Dose: 20 mg Documented By: Admin: 03/18/22 09:39 Dose: 20 mg Documented By: Admin: 03/17/22 20:41 Dose: 20 mg Documented By: Admin: 03/17/22 14:10 Dose: 20 mg Documented By: ASH Fentanyl (Fentanyl 50 Mcg/Hr Tdsy) 50 mcg TD NOW STA Stop: 03/16/22 12:14 Last Admin: 03/16/22 12:27 Dose: 50 mcg Documented By: ILANA Fentanyl (Fentanyl 50 Mcg/Hr Tdsy) 50 mcg TD Q72H EARLENE Stop: 04/02/22 11:59 Last Admin: 03/19/22 11:39 Dose: 50 mcg Documented By: ASH Furosemide (Furosemide 40 Mg Tab) 40 mg PO QAM EARLENE Stop: 04/16/22 08:59 Last Admin: 03/22/22 07:45 Dose: 40 mg Documented By: Admin: 03/21/22 08:50 Dose: 40 mg Documented By: Admin: 03/20/22 10:03 Dose: 40 mg Documented By: Admin: 03/19/22 08:01 Dose: 40 mg Documented By: Admin: 03/18/22 09:39 Dose: 40 mg Documented By: Admin: 03/17/22 09:14 Dose: 40 mg Documented By: ASH Gabapentin (Gabapentin 100 Mg Cap) 100 mg PO BID EARLENE Stop: 04/15/22 20:59 Last Admin: 03/22/22 07:44 Dose: 100 mg Documented By: Admin: 03/21/22 19:42 Dose: 100 mg Documented By: Admin: 03/21/22 08:49 Dose: 100 mg Documented By: Admin: 03/20/22 20:21 Dose: 100 mg Documented By: JEAN CLAUDE Admin: 03/20/22 10:02 Dose: 100 mg Documented By: Admin: 03/19/22 20:19 Dose: 100 mg Documented By: JEAN CLAUDE Admin: 03/19/22 08:02 Dose: 100 mg Documented By: Admin: 03/18/22 20:18 Dose: 100 mg Documented By: JEAN CLAUDE Admin: 03/18/22 09:39 Dose: 100 mg Documented By: Admin: 03/17/22 20:41 Dose: 100 mg Documented By: Admin: 03/17/22 09:13 Dose: 100 mg Documented By: Admin: 03/16/22 20:15 Dose: 100 mg Documented By: ANGELICA Heparin Sodium (Porcine) (Heparin 100 Unit/Ml 5ml Flush) 5 ml FLUSH NOW STA Stop: 03/22/22 12:30 Last Admin: 03/22/22 12:35 Dose: 5 ml Documented By: AXEL Morphine Sulfate (Morphine Sulf/Nss) 250 mg in 250 mls @ 0.5 mls/hr IV .Q96H EARLENE; Protocol Stop: 04/02/22 12:59 Last Admin: 03/19/22 13:53 Dose: 1 mg/hr, 1 mls/hr Documented By: ASH Co-signed By: ASH(2) Lidocaine (Lidocaine 5% Oint 30 Gm Tube) 1 appln EXT TID PRN PRN Reason: rectal pain Stop: 04/15/22 18:39 Last Admin: 03/20/22 20:20 Dose: 1 appln Documented By: JEAN CLAUDE Admin: 03/20/22 09:57 Dose: 1 appln Documented By: Admin: 03/20/22 04:00 Dose: 1 appln Documented By: JEAN CLAUDE Metoprolol Succinate (Metoprolol Succ 50mg Ext Rel Tab) 200 mg PO QAM [facility] Stop: 04/16/22 08:59 Last Admin: 03/22/22 07:45 Dose: 200 mg Documented By: Admin: 03/21/22 08:50 Dose: 200 mg Documented By: Admin: 03/20/22 10:03 Dose: 200 mg Documented By: Admin: 03/19/22 08:01 Dose: 200 mg Documented By: Admin: 03/18/22 09:39 Dose: 200 mg Documented By: Admin: 03/17/22 09:14 Dose: 200 mg Documented By: ASH Miscellaneous (Fentanyl Patch Remove & Waste) 1 each N/A Q3D [facility] Stop: 04/15/22 11:59 Last Admin: 03/16/22 12:29 Dose: 1 each Documented By: ILANA Co-signed By: LEYDI Singhaneous (Check Fentanyl Patch Placement) 1 each N/A QS [facility] Stop: 04/15/22 15:59 Last Admin: 03/16/22 15:48 Dose: 1 each Documented By: ES Antoinettecellaneous (Fentanyl Patch Remove & Waste) 1 each N/A Q3D [facility] Stop: 04/18/22 11:59 Last Admin: 03/19/22 11:39 Dose: 1 each Documented By: ASH Co-signed By: [facility] Miscellaneous (Check Fentanyl Patch Placement) 1 each N/A QS [facility] Stop: 04/15/22 18:39 Last Admin: 03/19/22 07:58 Dose: 1 each Documented By: Admin: 03/18/22 23:18 Dose: 1 each Documented By: JEAN CLAUDE Admin: 03/18/22 15:36 Dose: 1 each Documented By: Admin: 03/18/22 09:39 Dose: 1 each Documented By: Admin: 03/17/22 23:25 Dose: 1 each Documented By: Admin: 03/17/22 15:44 Dose: 1 each Documented By: Admin: 03/17/22 10:05 Dose: 1 each Documented By: Admin: 03/17/22 00:02 Dose: 1 each Documented By: Admin: 03/16/22 20:18 Dose: 1 each Documented By: ANGELICA Miscellaneous (Fentanyl Patch Remove & Waste) 1 each N/A NOW ONE Stop: 03/19/22 14:46 Last Admin: 03/19/22 16:17 Dose: 1 each Documented By: ASH Co-signed By: MARTIN Morphine Sulfate (Morphine Sulfate 2 Mg/Ml Carp) 2 mg IV Q2H PRN PRN Reason: Pain or Respiratory Distress Stop: 03/30/22 18:39 Last Admin: 03/19/22 11:07 Dose: 2 mg Documented By: Admin: 03/19/22 07:56 Dose: 2 mg Documented By: Admin: 03/19/22 02:22 Dose: 2 mg Documented By: JEAN CLAUDE Admin: 03/18/22 20:23 Dose: 2 mg Documented By: JEAN CLAUDE Admin: 03/18/22 16:29 Dose: 2 mg Documented By: Admin: 03/18/22 13:45 Dose: 2 mg Documented By: Admin: 03/18/22 09:37 Dose: 2 mg Documented By: Admin: 03/17/22 15:43 Dose: 2 mg Documented By: Admin: 03/17/22 12:00 Dose: 2 mg Documented By: Admin: 03/17/22 09:13 Dose: 2 mg Documented By: Admin: 03/17/22 03:39 Dose: 2 mg Documented By: Admin: 03/17/22 00:05 Dose: 2 mg Documented By: Admin: 03/16/22 20:07 Dose: 2 mg Documented By: ANGELICA Morphine Sulfate (Morphine Sulfate 2 Mg/Ml Carp) 2 mg IV ONCE ONE Stop: 03/21/22 18:01 Last Admin: 03/22/22 05:36 Dose: Not Given Documented By: VIRGIE Morphine Sulfate (Morphine Sulfate 2 Mg/Ml Carp) 2 mg IV NOW STA Stop: 03/22/22 12:07 Last Admin: 03/22/22 12:35 Dose: 2 mg Documented By: AXEL Polyethylene Glycol (Polyethylene (Miralax) 17 Gm Pack) 17 gm PO BID EARLENE Stop: 04/15/22 20:59 Last Admin: 03/22/22 07:45 Dose: 17 gm Documented By: Admin: 03/21/22 19:43 Dose: Not Given Documented By: Admin: 03/21/22 08:50 Dose: Not Given Documented By: Admin: 03/20/22 20:22 Dose: Not Given Documented By: JEAN CLAUDE Admin: 03/20/22 10:02 Dose: 17 gm Documented By: Admin: 03/19/22 20:20 Dose: Not Given Documented By: JEAN CLAUDE Admin: 03/19/22 08:02 Dose: Not Given Documented By: Admin: 03/18/22 20:19 Dose: 17 gm Documented By: JEAN CLAUDE Admin: 03/18/22 09:40 Dose: 17 gm Documented By: Admin: 03/17/22 20:42 Dose: Not Given Documented By: Admin: 03/17/22 09:15 Dose: 17 gm Documented By: Admin: 03/16/22 20:16 Dose: 4.25 gm Documented By: ANGELICA Tamsulosin HCl (Tamsulosin Hcl 0.4 Mg Cap) 0.4 mg PO BID EARLENE Stop: 04/15/22 20:59 Last Admin: 03/22/22 07:44 Dose: 0.4 mg Documented By: Admin: 03/21/22 19:43 Dose: 0.4 mg Documented By: Admin: 03/21/22 08:49 Dose: 0.4 mg Documented By: Admin: 03/20/22 20:21 Dose: 0.4 mg Documented By: JEAN CLAUDE Admin: 03/20/22 10:02 Dose: 0.4 mg Documented By: Admin: 03/19/22 20:19 Dose: 0.4 mg Documented By: JEAN CLAUDE Admin: 03/19/22 08:01 Dose: 0.4 mg Documented By: Admin: 03/18/22 20:18 Dose: 0.4 mg Documented By: JEAN CLAUDE Admin: 03/18/22 09:39 Dose: 0.4 mg Documented By: Admin: 03/17/22 20:41 Dose: 0.4 mg Documented By: Admin: 03/17/22 09:14 Dose: 0.4 mg Documented By: Admin: 03/16/22 20:14 Dose: 0.4 mg Documented By: ANGELICA Discharge Plan Visit Data Chief Complaint: Pain (Generalized) Stated Complaint: L SIDE AB PAIN AROUND COLOSTOMY ED Provider: Rupa Porras Discharge Problem: Cancer-related breakthrough pain, S/P colostomy, Rectal adenocarcinoma Patient Disposition: Admitted As Inpatient Discharge Instructions Interventions: ED Discharge Assessment Last Done: 03/16/22 18:09
[2022-03-17] MEDS: GABAPENTIN 100 MG CAP PO SCH ×2 (09:13→20:41)
[2022-03-17] MEDS: DICYCLOMINE HCL 20 MG TAB PO SCH ×3 (09:13→20:41)
[2022-03-17] MEDS: TAMSULOSIN HCL 0.4 MG CAP PO SCH ×2 (09:14→20:41)
[2022-03-17] MEDS: FUROSEMIDE 40 MG TAB PO SCH (09:14)
[2022-03-17] MEDS: APIXABAN 5 MG TABLET PO SCH ×2 (09:14→20:41)
[2022-03-17] MEDS: METOPROLOL SUCC 50MG EXT REL TAB PO SCH (09:14)
[2022-03-17] MEDS: dexAMETHasone 1 MG TAB PO SCH (09:14)
[2022-03-17] MEDS: POLYETHYLENE (MIRALAX) 17 GM PACK PO SCH ×2 (09:15→20:42)
--- NOTE | 2022-03-17 12:26 | Hospitalist Progress Note ---
Date of Service March 17, 2022 Assessment & Plan (1) Comfort measures only status: Plan: Comfort measures only Discussed with patient and daughter. Patient is frustrated by his pain, reports he is here for improved pain control. Has enrolled in hospice and had 1 meeting, wishes to continue hospice goals of care and comfort measure goals on inpatient. Due to poorly controlled pain and increased doses at home was recommended by hospice yesterday to present to the hospital for medication reevaluation, per daughter patient was resistant to this as would like to remain out of the hospital but ultimately had more spasms today and agreed to admission. See HPI, daughter also notes that while family's been trying very hard to honor his wishes he has not been functional at home, does not have 24- hour care, and especially given his difficulty with pain control which limits his ambulation and abilities to care for himself anticipate him moving into a different environment; his sister has a 1 floor home that he can likely go to on discharge. Would like case management and palliative reconsulted specifically for evaluation of potential pain pump Patient did have fentanyl patch increased to 50 mcg, and is on morphine 15 mg p.o. every 2 hours with intermittent spasmodic pain. Patient has not had any sedation/somnolence/evidence of narcosis at this dose We will continue increase fentanyl patch dosing, past medication requirements reviewed will reinitiate morphine 2 mg IV every 30 minutes consult palliative. Patient and daughter confirm that they are not interested in surgical/treatment interventions at this time consistent with prior wishes. They know he is at increased risk of perforation and abdominal complications, but have discussed his prognosis and progression extensively with Dr. Keller and I agree with comfort measures and symptomatic treatment only at this time Fentanyl patch, morphine IV, Zofran, Ativan as needed ordered MiraLAX twice daily given somewhat thick stool. Patient and daughter endorse that he has had some with thickened stool that benefits with the MiraLAX, but his spasms did not seem much better even when he was having normal/good output with MiraLAX earlier in the week. - Increase Bentyl to 20mg TID - Would consider adding muscle relaxer if there is a component of muscle spasms (2) Cancer related pain: Plan: Rectal adenocarcinoma Rectal cancer, stage IV with metastasis to bone, liver, adrenal glands. Patient with diverting colostomy which is in place, draining slightly firm brown material Patient has followed up with Dr. 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 Telemetry deferred in the setting of BODY DESIGN CHECKER goals, patient is regular and with normal rate on admitting exam (4) CAD (coronary artery disease): Plan: - On Eliquis, Metoprolol, statin (5) Urinary retention: Plan: Flomax continued (6) CHF (congestive heart failure): Plan: Metoprolol on daily Lasix continued. Lisinopril and spironolactone discontinued at prior discharge, patient remains normotensive with reasonable euvolemia Plan Med adjustments as above to achieve better pain control and plan to discharge back home to resume hospice care. Plans to stay with sister for additional support. Plan d/w Dr. Richards. Admission and Anticipated Discharge Date Admission Date: March 16, 2022 Supervising Physician Co-Signing Physician Notes Attending Attestation - Chart reviewed, care plan d/w VERONICA Henry. I agree w/ the walker components of her documentation. Tapan Richards MD Subjective Patient seen on daily rounds this morning. He feels that his pain and spasms have improved. Still having intermittent spasms, one of which occurred during my visit. He denies abd pain, n/v, cp, or dyspnea. 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 Ostomy bag just changed prior to my arrival. Review of Systems Review of Systems: All systems reviewed and are unremarkable except as noted in HPI and below. +pain and spasms--unclear if these are musculoskeletal or intestinal in origin Denies fever, chills, fatigue, headache, nasal congestion, sore throat, cough, chest pain, shortness of breath, palpitations, orthopnea, PND, abdominal pain, n/v/d, constipation, dysuria, hematuria, frequency, back pain, joint pain or swelling, easy bruising or bleeding, skin lesions or rashes. Physical Exam Physical Exam: GENERAL: 71 yo wd/wn WM. NAD. LUNGS: Clear to auscultation bilaterally. No W/R/R. CARDIOVASCULAR: Regular rate and rhythm. ABDOMEN: Soft, non-tender. Ostomy in LLQ. BS normoactive x 4 quad. EXTREMITIES: No edema. Non-tender. Peripheral pulses +2/4. NEUROLOGIC: A&O x3. Nonfocal PSYCHIATRIC: Cooperative but short. Appropriate mood and affect. SKIN: Warm, dry, intact. Results & Data Results & Data ([facility]) Vital Signs (Past 12 Hours) Vital Signs Temp Pulse Resp BP Pulse Ox O2 Del Method 03/17/22 07:40 36.5 C 77 20 132/81 95 Room Air 03/17/22 07:28 36.5 C 69 20 142/80 H 95 Room Air PG Care Time/CCT Total # of Minutes Spent Total Time Spent with Patient: Total time spent is greater than 50% in coordination of care (as documented) at patient's floor/unit and/or counseling patient: Coding Level of Care Code 40704 Subseq Obs Care Lvl 2 Diagnoses Comfort measures only status Z51.5 Cancer related pain G89.3 Atrial fibrillation status post cardioversion I48.91 CAD (coronary artery disease) I25.10 Urinary retention R33.9 CHF (congestive heart failure) I50.9
[2022-03-18] MEDS: MoRPHine SULFATE 2 MG/ML CARP IV PRN ×4 (09:37→20:23)
[2022-03-18] MEDS: APIXABAN 5 MG TABLET PO SCH ×2 (09:39→20:18)
[2022-03-18] MEDS: METOPROLOL SUCC 50MG EXT REL TAB PO SCH (09:39)
[2022-03-18] MEDS: TAMSULOSIN HCL 0.4 MG CAP PO SCH ×2 (09:39→20:18)
[2022-03-18] MEDS: FUROSEMIDE 40 MG TAB PO SCH (09:39)
[2022-03-18] MEDS: dexAMETHasone 1 MG TAB PO SCH (09:39)
[2022-03-18] MEDS: GABAPENTIN 100 MG CAP PO SCH ×2 (09:39→20:18)
[2022-03-18] MEDS: DICYCLOMINE HCL 20 MG TAB PO SCH ×3 (09:39→20:18)
[2022-03-18] MEDS: CHECK fentaNYL PATCH PLACEMENT SCH ×3 (09:39→23:18)
[2022-03-18] MEDS: POLYETHYLENE (MIRALAX) 17 GM PACK PO SCH ×2 (09:40→20:19)
--- NOTE | 2022-03-18 13:31 | Hospitalist Progress Note ---
Date of Service March 18, 2022 Assessment & Plan (1) Comfort measures only status: Plan: Discussed with patient and daughter. Patient is frustrated by his pain, reports he is here for improved pain control. Has enrolled in hospice and had 1 meeting, wishes to continue hospice goals of care and comfort measure goals on inpatient. Due to poorly controlled pain and increased doses at home was recommended by hospice yesterday to present to the hospital for medication reevaluation, per daughter patient was resistant to this as would like to remain out of the hospital but ultimately had more spasms today and agreed to admission. See HPI, daughter also notes that while family's been trying very hard to honor his wishes he has not been functional at home, does not have 24- hour care, and especially given his difficulty with pain control which limits his ambulation and abilities to care for himself anticipate him moving into a different environment; his sister has a 1 floor home that he can likely go to on discharge. Would like case management and palliative reconsulted specifically for evaluation of potential pain pump Patient did have fentanyl patch increased to 50 mcg, and is on morphine 15 mg p.o. every 2 hours with intermittent spasmodic pain. Patient has not had any sedation/somnolence/evidence of narcosis at this dose We will continue increase fentanyl patch dosing, past medication requirements reviewed will reinitiate morphine 2 mg IV every 30 minutes consult palliative. Fentanyl patch, morphine IV, Zofran, Ativan as needed ordered --> appreciate palliative assistance, initiating Morphine infusion for added pain control MiraLAX twice daily given somewhat thick stool. Patient and daughter endorse that he has had some with thickened stool that benefits with the MiraLAX, but his spasms did not seem much better even when he was having normal/good output with MiraLAX earlier in the week. - Increase Bentyl to 20mg TID - Would consider adding muscle relaxer if there is a component of muscle spasms - Pt will be made full admit, not sure if current hospice agency can manage infusions, case management in contact and may need to arrange for another agency - Pt is transitioning to live at home with his sister and has medical equipment being delivered for 03/19 and therefore will not be able to be d/c'd until then (2) Cancer related pain: Plan: Rectal adenocarcinoma Rectal cancer, stage IV with metastasis to bone, liver, adrenal glands. Patient with diverting colostomy which is in place, draining slightly firm brown material Patient has followed up with Dr. Keller, comfort measures/hospice goals and deferring surgical/chemotherapeutic options at this time He is continued on Eliquis at this time after discussions with his hospice provider limiting NSAID use for rectal inflammation Pain control as noted in LEAD INSPECTOR (3) Atrial fibrillation status post cardioversion: Plan: Continued on metoprolol, Eliquis. Telemetry deferred in the setting of LEAD INSPECTOR goals, patient is regular and with normal rate on admitting exam (4) CAD (coronary artery disease): Plan: - On Eliquis, Metoprolol, statin (5) Urinary retention: Plan: Flomax continued (6) CHF (congestive heart failure): Plan: Metoprolol on daily Lasix continued. Lisinopril and spironolactone discontinued at prior discharge, patient remains normotensive with reasonable euvolemia Plan As above. Hopefully can be d/c'd to sisters home with hospice care on 03/19. Plan d/w Dr. Richards. Admission and Anticipated Discharge Date Admission Date: March 16, 2022 Supervising Physician Co-Signing Physician Notes Attending Attestation - Chart reviewed, care plan d/w VERONICA Henry. I agree w/ the walker components of her documentation. Tapan Richards MD Subjective Patient seen on daily rounds this morning. He feels that his pain and spasms have improved. Feels that pain and spasms are more controlled. He denies abd pain, n/v, cp, or dyspnea. 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 Ostomy bag functioning. Review of Systems Review of Systems: All systems reviewed and are unremarkable except as noted in HPI and below. +pain and spasms--unclear if these are musculoskeletal or intestinal in origin Denies fever, chills, fatigue, headache, nasal congestion, sore throat, cough, chest pain, shortness of breath, palpitations, orthopnea, PND, abdominal pain, n/v/d, constipation, dysuria, hematuria, frequency, back pain, joint pain or swelling, easy bruising or bleeding, skin lesions or rashes. Physical Exam Physical Exam: GENERAL: 71 yo wd/wn WM. NAD. LUNGS: Clear to auscultation bilaterally. No W/R/R. CARDIOVASCULAR: Regular rate and rhythm. ABDOMEN: Soft, non-tender. Ostomy in LLQ. BS normoactive x 4 quad. EXTREMITIES: No edema. Non-tender. Peripheral pulses +2/4. NEUROLOGIC: A&O x3. Nonfocal PSYCHIATRIC: Cooperative but short. Appropriate mood and affect. SKIN: Warm, dry, intact. Results & Data Results & Data ([facility]) Vital Signs (Past 12 Hours) Vital Signs Temp Pulse Resp BP Pulse Ox O2 Del Method 03/18/22 07:31 36.6 C 78 15 120/70 97 Room Air PG Care Time/CCT Total # of Minutes Spent Total Time Spent with Patient: Total time spent is greater than 50% in coordination of care (as documented) at patient's floor/unit and/or counseling patient: Coding Level of Care Code 85750 Subseq Hosp Care Lvl 2 Diagnoses Comfort measures only status Z51.5 Cancer related pain G89.3 Atrial fibrillation status post cardioversion I48.91 CAD (coronary artery disease) I25.10 Urinary retention R33.9 CHF (congestive heart failure) I50.9
--- NOTE | 2022-03-18 14:27 | Palliative Care Consultation ---
Date of Consultation March 18, 2022 Assessment & Plan (1) Cancer related pain: He reports that his pain is reasonably controlled on current regimen. He still prefers heating pad over topical lidocaine for rectal pain. He denies withholding medication for sleepiness. It is very important to him to have a regimen that he can control. Fentanyl was increased to 50mcg and with his morphine dosing in last 24 hours, he has had approximately 125 OME. He tells me that he is not interested in adjusting his medications. His daughter's preference is for him to have IV morphine infusion as she feels that parenteral morphine has been more effective. I expressed concern about whether his hospice would be able to manage and spoke with Retail Event Coordinator of [facility]. Their preference would be for him to be on long and short acting oral morphine. Other option would be to continue current regimen with low dose methadone for additional neuropathic pain relief. Will meet with Rigoberto and his daughter tomorrow to discuss further. Spoke with WADE Kirby who will order baseline EKG in the event that we start methadone. (2) Constipation: He has been using miralax for constipation but finds that a full dose causes diarrhea which overflows his colostomy bag. We discussed using half dose and adjusting as needed. (3) Palliative care encounter: He has elected hospice. He and his family are in agreement that they want to continue hospice care and that he will be staying with his sister as he is unable manage on his own at home. History of Present Illness Reason for Consultation: pain management Requesting Physician: Dr. Pappas Attending Physician: Tapan Richards History of Present Illness 71 yo gentleman known to palliative care who has metastatic rectal cancer with severe neuropathic rectals pain. He was hospitalized earlier this month with uncontrolled pain which he described as sharp, burning, stabbing pain in his rectum. He had reasonable pain control with fentanyl patch at 37mcg, prn morphine, gabapentin and lidocaine. He was discharged home and subsequently enrolled in hospice. He lives alone but his daughter, Sarina, is a hospice nurse. He returns with uncontrolled pain which is now primarily a sharp stabbing pain in his left ribs. He localizes this to near his colostomy. Pain is worse with coughing and movement, better at rest. His morphine dosing was increased and he was given dicyclomine for pain. Per RN, he has been reluctant to take pain medications at times because they make him sleepy. He has had prn IV morphine x 4 in last 24 hours. Allergies Allergy/AdvReac Type Severity Reaction Status Date / Time No Known Allergies Allergy Verified 02/25/22 15:12 Home Medications Medication Instructions Recorded Confirmed Type acetaminophen 325 mg tablet 650 mg PO Q6H PRN Pain 03/01/21 03/16/22 History (Tylenol) furosemide 40 mg tablet 40 mg PO QAM #90 tabs 04/02/21 03/16/22 Rx zfowekflsnf-fcrjislrm-dqf C-Mn 500 1 cap PO DAILY 09/04/21 03/16/22 History mg-400 mg capsule (Glucosamine Chondroitin Maximum Strength) ondansetron HCl 8 mg tablet 8 mg PO Q8H PRN NAUSEA/VOMITING 09/04/21 03/16/22 History prochlorperazine maleate 10 mg 10 mg PO Q6H PRN NAUSEA/VOMITING 09/04/21 03/16/22 History tablet (Compazine) apixaban 5 mg tablet (Eliquis) 5 mg PO BID #180 tabs 10/02/21 03/16/22 Rx atorvastatin 10 mg tablet 10 mg PO 3XWK 02/25/22 03/16/22 History metoprolol succinate 200 mg 200 mg PO QAM #90 tabs 02/25/22 03/16/22 Rx tablet,extended release 24 hr gabapentin 100 mg capsule 100 mg PO BID #60 caps 03/06/22 03/16/22 Rx lidocaine 5 % topical ointment 1 applic EXT TID PRN rectal pain 03/06/22 03/16/22 Rx #30 grams polyethylene glycol 3350 17 17 g PO DAILY #119 grams 03/06/22 03/16/22 Rx gram/dose oral powder dexamethasone 2 mg tablet 2 mg PO DAILY 03/16/22 03/16/22 History fentanyl 50 mcg/hr transdermal 1 patch transdermal Q72H 03/16/22 03/16/22 History patch morphine concentrate 100 mg/5 mL 15 mg PO Q2H PRN breakthrough 03/16/22 03/16/22 History (20 mg/mL) oral solution pain, severe tamsulosin 0.4 mg capsule 0.4 mg PO BID 03/16/22 03/16/22 History Patient History Medical History Alcoholism Quit 2014 Atrial fibrillation status post cardioversion Cardioversion with amiodarone 2014 On warfarin daily--follows with Dr. Dominguez CAD (coronary artery disease) Nonobstructive per 2014 cardiac cath per cardio records CHF (congestive heart failure) Dyslipidemia Hearing deficit Hypertension FDC (current) use of anticoagulants Rectal adenocarcinoma (01/26/21) Reason for port placement Thrombus of left atrial appendage Noted in 2014 - on Warfarin since that time Surgical History History of cardiac cath (~2014) no stents History of oral surgery Hx of colonoscopy Port-A-Cath in place (03/12/21) Access port placement. Dr. Nogueira 03/12/21 S/P colostomy Diagnostic laparoscopy, laparoscopic diverting loop sigmoid colostomy on 01/30/[address] Concepcion at [facility] [place] [facility] Family History Father , 68yo Alcoholism Hypertension Stroke Smoker Mother , 72yo COPD (chronic obstructive pulmonary disease) Heart disease Sister COPD (chronic obstructive pulmonary disease) Hypertension Sister Glaucoma Daughter Cardiomyopathy Heart disease Aunt Stroke Other No family history of adverse response to anesthesia Social History Smoking Status: Former smoker Tobacco Type: Smokeless Tobacco (Dip or Chew) Second Hand Exposure: No; Do You Dip or Chew Tobacco: Yes; Tobacco Cessation Education Requested by Patient: Yes Hx Alcohol Use: Yes (alcoholism) Hx Substance Use: No Preferred Language: Uzbek Communication Ability: Effective Regulatory Affairs Specialist Required: No Beliefs That Will Affect Care: None marital status: / Current Living Situation: Alone Current Living Situation Comment: Lives alone in 2 story house, daughter lives close current occupational status: retired current occupation: [employer] work How many Children do You have: 1 Other Information That Helps Us Care for You: No Feels Safe at Home: Yes Childhood Exposure to Second-Hand Smoke: No caffeine: No during the past year weight has: decreased > 10 lbs Seatbelt Use: never Assistive Devices: None Review of Systems Review of Systems: ESAS Pain 1/3 Dyspnea 0/3 Nausea 0/3 Drowsiness 0/3 PPS 50% Physical Exam Constitutional: + thin and + frail appearing Respiratory: normal respiratory effort; no labored breathing Gastrointestinal (Abdomen): colostomy, liquid brown stool Musculoskeletal: Extremities: + muscle atrophy Neurologic: Speech / Cognition: normal cognition Results & Data ([facility]) Vital Signs (Past 12 Hours) Vital Signs Temp Pulse Resp BP Pulse Ox O2 Del Method 03/18/22 07:31 97.9 F 78 15 120/70 97 Room Air PG Care Time/CCT Total # of Minutes Spent Total Time Spent: 96 Total Time Spent with Patient: Total time spent is greater than 50% in coordination of care (as documented) at patient's floor/unit and/or counseling patient: symptom management, patient and family education and support, coordination of care Coding Level of Care Code 81380 Initial Inpt Care Lvl 3 Diagnoses Cancer related pain G89.3 Constipation K59.00 Palliative care encounter Z51.5
[2022-03-19] MEDS: MoRPHine SULFATE 2 MG/ML CARP IV PRN ×3 (02:22→11:07)
[2022-03-19] MEDS: ACETAMINOPHEN 325 MG TAB PO PRN (02:22)
[2022-03-19] MEDS: CHECK fentaNYL PATCH PLACEMENT SCH (07:58)
[2022-03-19] MEDS: dexAMETHasone 1 MG TAB PO SCH (08:01)
[2022-03-19] MEDS: DICYCLOMINE HCL 20 MG TAB PO SCH ×3 (08:01→20:18)
[2022-03-19] MEDS: FUROSEMIDE 40 MG TAB PO SCH (08:01)
[2022-03-19] MEDS: APIXABAN 5 MG TABLET PO SCH ×2 (08:01→20:18)
[2022-03-19] MEDS: TAMSULOSIN HCL 0.4 MG CAP PO SCH ×2 (08:01→20:19)
[2022-03-19] MEDS: METOPROLOL SUCC 50MG EXT REL TAB PO SCH (08:01)
[2022-03-19] MEDS: GABAPENTIN 100 MG CAP PO SCH ×2 (08:02→20:19)
[2022-03-19] MEDS: POLYETHYLENE (MIRALAX) 17 GM PACK PO SCH ×2 (08:02→20:20)
[2022-03-19 08:06] VITALS: TEMP 97.5; O2SAT 98
--- NOTE | 2022-03-19 09:16 | Electrocardiogram Report ---
Test Reason : Blood Pressure : / mmHG Vent. Rate : 075 BPM Atrial Rate : 075 BPM P-R Int : 138 ms QRS Dur : 084 ms QT Int : 422 ms P-R-T Axes : 000 -15 022 degrees QTc Int : 471 ms Normal sinus rhythm Nonspecific ST and T wave abnormality Abnormal ECG No previous ECGs available Confirmed by Ad James ([id number]) on 03/19/2022 9:16:27 AM Referred By: REFERRED SELF Confirmed By:Gregory James
[2022-03-19] MEDS ORDERED: fentaNYL 50 MCG/HR TDSY TD SCH (12:00)
[2022-03-19] MEDS ORDERED: MoRPHine BOLUS from BAG IV PRN (12:07)
--- NOTE | 2022-03-19 12:22 | Palliative Care Progress Note ---
Date of Service March 19, 2022 Assessment & Plan (1) Cancer related pain: Plan: He and his daughter Sarina do not feel that he has adequate pain control. I have discussed options which include continuing current regimen with increasing prn morphine, adding low dose methadone or using morphine infusion to establish a better sense of how much opioid he needs for good pain control. Unfortunately, as his BMI goes down, the rate of absorption of fentanyl becomes more variable which limits benefit of increasing patch and makes it difficult to know exactly how much opioid he is getting. His EKG shows QTc of 471 which is somewhat concerning for starting methadone and his daughter would prefer not to use methadone. At this point, using morphine infusion to have more rapid control on dose adjustment and better sense of opioid need would be the best option. Will need to start at very low dose as fentanyl clears and adjust as needed. (2) Constipation: Plan: Improved with lower dose miralax. (3) Palliative care encounter: Plan: Plan is for optimized pain control and home to his sister's house with hospice to follow. Equipment is being delivered to her house today. Admission and Anticipated Discharge Date Admission Date: March 18, 2022 Subjective Reports more pain today in left ribs and rectum. He has used 25mg OME in last 24 hours. He also reports poor appetite. Declined to order dinner. Review of Systems Review of Systems: ESAS Pain 2/3 Dyspnea 0/3 Anxiety 0/3 Nausea 0/3 Drowsiness 0/3 PPS 50% Physical Exam Constitutional: no acute distress Respiratory: normal respiratory effort; no labored breathing Gastrointestinal (Abdomen): colostomy with soft brown stool Musculoskeletal: Extremities: + muscle atrophy Skin: warm and dry Neurologic: Speech / Cognition: normal cognition Genitourinary: Continent Results & Data ([facility]) Vital Signs (Past 12 Hours) Vital Signs Temp Pulse Resp BP Pulse Ox O2 Del Method 03/19/22 08:05 97.5 F L 86 18 145/73 H 98 Room Air PG Care Time/CCT Total # of Minutes Spent Total Time Spent: 45 Total Time Spent with Patient: Total time spent is greater than 50% in coordination of care (as documented) at patient's floor/unit and/or counseling patient: symptom management, patient and family education and support, coordination of care. Coding Level of Care Code 85242 Subseq Hosp Care Lvl 3 Diagnoses Cancer related pain G89.3 Constipation K59.00 Palliative care encounter Z51.5
[2022-03-19] MEDS ORDERED: MoRPHine SULF/NSS 250 MG/250 ML BTL IV SCH (13:00)
--- NOTE | 2022-03-19 17:56 | Hospitalist Progress Note ---
Date of Service March 19, 2022 Assessment & Plan (1) Comfort measures only status: Plan: My discussion in the discussion with palliative team quite differentwhenever I saw him he noted that his pain was controlled and ready to go homelater the situation changed. Continue current care, continue to follow. Goal of home with hospice once he is ready. Admission and Anticipated Discharge Date Admission Date: March 18, 2022 Subjective Whenever I see him he is trying to dial a family member. He notes his pain is under good control and would very much like to go home. He relates that he was informed that he has everything he needs at home and would like to get home this afternoon. After doing all of his discharge paperwork, I am later informed that he is staying due to uncontrolled pain and the initiation of a morphine drip. Review of Systems Review of Systems: All systems reviewed & are unremarkable except as noted in HPI & below Physical Exam Physical Exam: General he is awake and alert frustrated by his phone and not being able to find contacts, but in no distress. HEENT normocephalic atraumatic mucous membranes moist. Breathing unlabored no accessory muscle use good effort. Skin shows no rashes no pallor or icterus. Neuro without focal deficits. Results & Data Results & Data ([facility]) Vital Signs (Past 12 Hours) Vital Signs Temp Pulse Resp BP Pulse Ox O2 Del Method 03/19/22 08:05 97.5 F L 86 18 145/73 H 98 Room Air PG Care Time/CCT Total # of Minutes Spent Total Time Spent with Patient: Total time spent is greater than 50% in coordination of care (as documented) at patient's floor/unit and/or counseling patient: Coding Level of Care Code 78338 Subseq Hosp Care Lvl 2 Diagnoses Comfort measures only status Z51.5
[2022-03-20] MEDS: ACETAMINOPHEN 325 MG TAB PO PRN ×2 (03:07→20:24)
[2022-03-20] MEDS: LIDOCAINE 5% OINT 30 GM TUBE EXT PRN ×3 (04:00→20:20)
[2022-03-20] MEDS: DICYCLOMINE HCL 20 MG TAB PO SCH ×3 (10:02→20:21)
[2022-03-20] MEDS: GABAPENTIN 100 MG CAP PO SCH ×2 (10:02→20:21)
[2022-03-20] MEDS: TAMSULOSIN HCL 0.4 MG CAP PO SCH ×2 (10:02→20:21)
[2022-03-20] MEDS: POLYETHYLENE (MIRALAX) 17 GM PACK PO SCH ×2 (10:02→20:22)
[2022-03-20] MEDS: dexAMETHasone 1 MG TAB PO SCH (10:03)
[2022-03-20] MEDS: METOPROLOL SUCC 50MG EXT REL TAB PO SCH (10:03)
[2022-03-20] MEDS: APIXABAN 5 MG TABLET PO SCH ×2 (10:03→20:21)
[2022-03-20] MEDS: FUROSEMIDE 40 MG TAB PO SCH (10:03)
--- NOTE | 2022-03-20 17:33 | Hospitalist Progress Note ---
Date of Service March 20, 2022 Assessment & Plan (1) Comfort measures only status: Plan: Plan for home with hospice. Palliative care initiated morphine drip and would like to watch through into tomorrow to be able to calculate what might be reasonable for home dosing. Continue current care for now. -Anticipate home with hospice once everything is set up, and once home dosing has been elucidated. (2) Cancer related pain: Plan: Rectal adenocarcinoma Rectal cancer, stage IV with metastasis to bone, liver, adrenal glands. Patient with diverting colostomy which is in place, draining slightly firm brown material Patient has followed up with Dr. Keller, comfort measures/hospice goals and deferring surgical/chemotherapeutic options at this time He is continued on Eliquis at this time after discussions with his hospice provider limiting NSAID use for rectal inflammation Pain control as noted in PLANT SCIENCES PROFESSOR (3) Atrial fibrillation status post cardioversion: Plan: Continued on metoprolol, Eliquis. Telemetry deferred in the setting of PLANT SCIENCES PROFESSOR goals, patient is regular and with normal rate on admitting exam (4) CAD (coronary artery disease): Plan: - On Eliquis, Metoprolol, statin (5) Urinary retention: Plan: Flomax continued (6) CHF (congestive heart failure): Plan: Metoprolol on daily Lasix continued. Lisinopril and spironolactone discontinued at prior discharge, patient remains normotensive with reasonable euvolemia Plan As above. Hopefully can be d/c'd to sisters home with hospice care on 03/19. Plan d/w Dr. Richards. Admission and Anticipated Discharge Date Admission Date: March 18, 2022 Subjective Discussed with palliativeinput appreciated. When I saw the patient he noted his pain was under better control. In discussing the plan of following him on IV morphine into tomorrow to calculate home dosing more accurately, he notes "so that means I have to stay here another fucking night?" After discussing how thi s will hopefully have him suffer less at home he is more amenable. Called Shira and canceled Roxanol prescription sent yesterday Review of Systems Review of Systems: All systems reviewed & are unremarkable except as noted in HPI & below Physical Exam Physical Exam: In general he is awake and alert pleasant no distress. HEENT normocephalic atraumatic mucous members moist. Breathing unlabored no accessory muscle use good effort. Skin shows no rashes no pallor or icterus. Neuro without focal deficits. PG Care Time/CCT Total # of Minutes Spent Total Time Spent with Patient: Total time spent is greater than 50% in coordination of care (as documented) at patient's floor/unit and/or counseling patient: Coding Level of Care Code 45890 Subseq Hosp Care Lvl 2 Diagnoses Comfort measures only status Z51.5 Cancer related pain G89.3 Atrial fibrillation status post cardioversion I48.91 CAD (coronary artery disease) I25.10 Urinary retention R33.9 CHF (congestive heart failure) I50.9
[2022-03-21] MEDS: ACETAMINOPHEN 325 MG TAB PO PRN ×2 (02:45→11:20)
[2022-03-21] MEDS: APIXABAN 5 MG TABLET PO SCH ×2 (08:49→19:42)
[2022-03-21] MEDS: GABAPENTIN 100 MG CAP PO SCH ×2 (08:49→19:42)
[2022-03-21] MEDS: TAMSULOSIN HCL 0.4 MG CAP PO SCH ×2 (08:49→19:43)
[2022-03-21] MEDS: DICYCLOMINE HCL 20 MG TAB PO SCH ×3 (08:49→19:43)
[2022-03-21] MEDS: dexAMETHasone 1 MG TAB PO SCH (08:50)
[2022-03-21] MEDS: POLYETHYLENE (MIRALAX) 17 GM PACK PO SCH ×2 (08:50→19:43)
[2022-03-21] MEDS: METOPROLOL SUCC 50MG EXT REL TAB PO SCH (08:50)
[2022-03-21] MEDS: FUROSEMIDE 40 MG TAB PO SCH (08:50)
--- NOTE | 2022-03-21 11:12 | Palliative Care Progress Note ---
Date of Service March 21, 2022 Assessment & Plan (1) Cancer related pain: Plan: Better control with morphine infusion running at 1mg/hr. He has not had any prn doses. He has not had excessive sedation. He initially asked me to change the IV to pills so he could go home. His daughter, Sarina, is concerned about converting to po medication as he was not well controlled on po prior to admission. On further discussion with Mr. Gold, he is concerned about having a pump attached to a pole that he would have to drag around. We discussed conversion to po extended and immediate release at an equivalent dose, however, I cannot guarantee that he would have the same degree of pain relief. He talked with his daughter and they have decided to go home with hospice on morphine infusion. Case management and Dr. Ramon conner. Phone call from [place] at [facility] pharmacy. They are experiencing morphine shortage and will not be able to fill cartridges for home pump until about 9pm. Mr. Gold will be going home with his daughter this evening. Discussed with RN to give bolus dose of morphine when infusion is stopped prior to discharge to bridge the gap until new cartridge is available at home. (2) Constipation: Plan: On miralax which is effective. He adjusts dose based on colostomy output. We did discuss that with medication change, he may need to adjust miralax dosing if low output continues. (3) Palliative care encounter: Plan: Goal for care is home to his sister's house with hospice. He is DNR/DNI. He will be followed by [facility]. Admission and Anticipated Discharge Date Admission Date: March 18, 2022 Subjective Sleeping but easily arousable. Was up early this morning. Got cleaned up and shaved without difficulty and without pain. Rates pain as 0/10 at this time. He does have mild pain when he wakes up in morning. He notes decreased output in his colostomy. He has been eating. No nausea or abdominal pain. Review of Systems Review of Systems: ESAS Pain 0/3 Dyspnea 0/3 Anxiety 1/3 Nausea 0/3 Drowsiness 0/3 PPS 50% Physical Exam Constitutional: no acute distress Respiratory: normal respiratory effort; no labored breathing Gastrointestinal (Abdomen): colostomy with small amount of liquid brown stool, abdomen soft, nontender Musculoskeletal: Extremities: + muscle atrophy Skin: warm and dry Neurologic: Speech / Cognition: normal cognition Genitourinary: continent PG Care Time/CCT Total # of Minutes Spent Total Time Spent: 68 Total Time Spent with Patient: Total time spent is greater than 50% in coordination of care (as documented) at patient's floor/unit and/or counseling patient: symptom management , coordination of care, patient and family education and support Coding Level of Care Code 99258 Prolonged Care (int'l) Diagnoses Cancer related pain G89.3 Constipation K59.00 Palliative care encounter Z51.5
--- NOTE | 2022-03-21 16:52 | Hospitalist Progress Note ---
Date of Service March 21, 2022 Assessment & Plan (1) Comfort measures only status: Plan: Plan for home with hospice. Palliative care initiated morphine drip which is working very well for pain control Arrangements in place for home with hospice and morphine infusion at home 1mg/hr for tomorrow Miralax as needed (2) Cancer related pain: Plan: Rectal adenocarcinoma Rectal cancer, stage IV with metastasis to bone, liver, adrenal glands. Patient with diverting colostomy Patient has followed up with Dr. Keller, comfort measures/hospice goals and deferring surgical/chemotherapeutic options at this time He is continued on Eliquis at this time after discussions with his hospice provider Pain control as noted in [facility] (3) Atrial fibrillation status post cardioversion: Plan: Continued on metoprolol, Eliquis. Telemetry deferred in the setting of [facility] goals Will continue same meds while on hospice for now (4) CAD (coronary artery disease): Plan: no acute issues - On Eliquis, Metoprolol, statin (5) Urinary retention: Plan: Flomax continued (6) CHF (congestive heart failure): Plan: Metoprolol and daily Lasix continued. Lisinopril and spironolactone discontinued at prior discharge, patient remains normotensive with reasonable euvolemia Plan Dispo-dc to home with home hospice and IV morphine infusion through port tomorrow Admission and Anticipated Discharge Date Admission Date: March 18, 2022 Subjective Pain very well controlled. States "I almost feel like I'm back to normal." Anxious to get out of hospital but home morphine infusion and hospice couldn't be arranged for today. He is moving bowels into bag, eating small amounts I discussed his care with Palliative Medicine Review of Systems Review of Systems: All systems reviewed & are unremarkable except as noted in HPI & below Physical Exam Constitutional: WD/WN, vitals as above Neck: trachea midline, no thyromegaly Respiratory: normal respiratory effort, lungs clear to auscultation Cardiovascular: RRR, no murmur, no edema Chest (Breasts): Chest: + vascular access device or port (anterior chest wall with port in place on left) Gastrointestinal (Abdomen): normal bowel sounds, soft, nontender, no hepatosplenomegaly Inspection/Auscultation: + abdomen abnormal to inspection (ostomy bag in place with liquid green-brown stool) Musculoskeletal: Extremities: extremities normal to inspection; no cyanosis and no clubbing Skin: no rashes, warm and dry Neurologic: moves all extremities and awake; no focal motor deficits Psychiatric: A+Ox3, euthymic affect Lymphatic: no lymphedema PG Care Time/CCT Total # of Minutes Spent Total Time Spent with Patient: Total time spent is greater than 50% in coordination of care (as documented) at patient's floor/unit and/or counseling patient: Coding Level of Care Code 70093 Subseq Hosp Care Lvl 1 Diagnoses Comfort measures only status Z51.5 Cancer related pain G89.3 Atrial fibrillation status post cardioversion I48.91 CAD (coronary artery disease) I25.10 Urinary retention R33.9 CHF (congestive heart failure) I50.9
[2022-03-21] MEDS ORDERED: MoRPHine SULFATE 2 MG/ML CARP IV ONE (18:00)
[2022-03-22] MEDS: DICYCLOMINE HCL 20 MG TAB PO SCH (07:44)
[2022-03-22] MEDS: GABAPENTIN 100 MG CAP PO SCH (07:44)
[2022-03-22] MEDS: TAMSULOSIN HCL 0.4 MG CAP PO SCH (07:44)
[2022-03-22] MEDS: dexAMETHasone 1 MG TAB PO SCH (07:45)
[2022-03-22] MEDS: FUROSEMIDE 40 MG TAB PO SCH (07:45)
[2022-03-22] MEDS: METOPROLOL SUCC 50MG EXT REL TAB PO SCH (07:45)
[2022-03-22] MEDS: POLYETHYLENE (MIRALAX) 17 GM PACK PO SCH (07:45)
[2022-03-22] MEDS: APIXABAN 5 MG TABLET PO SCH (07:45)
--- NOTE | 2022-03-22 12:03 | Discharge Summary ---
Date of Service March 22, 2022 Admission HPI Per Admitting Provider Rigoberto is a 71-year-old male with a past medical history of metastatic colorectal cancer, CAD, diastolic CHF with ischemic cardiomyopathy, history of alcohol use disorder in remission since 2014 recently discharged 03/06/2022 to hospice who presents with poorly controlled pain and inadequate support at home. No At prior discharge additional support at home was discussed with patient, did not feel this was necessary at the time and noted that he was very independent and preferred to be alone in his home. Patient lives in [facility]. At bedside: Sharp pain in his ribs and at his ostomy site. Cannot move when getting up and down. Laid around at home for 6 days and too tired, so came in to get managed. Has some help at home from cousins and daughter. Daughter's name is Sarina. Hospice enrolled. Not sure what agency, as through [place]. Thinks is [employer]. Has only been with them for the week and saw once, reported his increased pain but was recommended to go to the hospital for adjustments. [place] [facility] [place] [facility] [place]. Has spasm of pain which sometimes make him yell out. Each spasm can be 10/10, lasting a few seconds and sometimes aches after and lasts up to a minute or so. Pain resolves with rest and laying still, but due to his pain he has not been active at home an dable to do normal IADLs. NO chest pain or shortness of breath No fevers, chills No nausea or vomiting Ostomy output has not changed. Generally liquid with some brownish material. Some rectal discharge which ahs not changed in the last week 2/2 his tumor. W/ daughter/mPOA discussed via phone: Reports overall at rest his pain is adequately controlled, but intermittently has spasms throughout the day around his ostomy which jumped to a 10 out of 10 p ain and are worsened with movement causing him to be less ambulatory than he expected. Reports overall the spasms are similar than when he was discharged last week, maybe a little bit worse since being home but overall similar. Reports is frustrating for him because he did not want to be in bed, and would like more aggressive pain control. Reports that he did discuss this with hospice, but due to already being increased on pain control and not having 24- hour in the cast was recommended for review of his home plan and hospital management of his current pain. Discussed with patient and patients daughter Sarina by phone. She reports she has been trying very hard to honor his wishes. Notes she is aware that he wants to be home but 'had been bad for him and for everyone else, he shouldn't be alone with what he needs.' He is getting pian in more places now that he is off treatment. Has been on the couch for three days and knows it will progress with the cancer. Hospice had mentioned evaluation for a morphine pump due to his pain being very hard to control and he had much better control in the hospital, but after discharge was not optimized and 'the 15 mg every four hours and patch is just not helping him. He is completely sharp and coherant, but still in terrible pain.' Still can't move around enough. Is interseted in methadone vs pain pump vs alternative pain control options and al so want to get him to a better home environment. His daughter notes 'His choices aren't ones he likes, but need to see how functional he can be to know what those are. His sister does have a 1 story home. We are just there for pain management, not treatment and we do not want treatments or surgery, but do want need pain control.' They note that they discussed extensively with alternative options with Dr. Keller, and have deferred surgical interventions and further cancer treatments at this time. They are aware that he is high risk for perforation and progressive abscess, while he would be agreeable to fluid and antibiotics do not want other aggressive treatments and would like to continue ACADEMIC SUPPORT DIRECTOR goals of care Prior pain review: 02/27: 25mcg Q72 fentanyl 02/26: 2mg IV q30m morphine 02/28 + 5mg oral morphine [id number] Medical History: Reviewed Medications: Reviewed Surgical History: Reviewed Allergies: Reviewed Social History: Reviewed Code Status: Reviewed, DNR/DNI/ACADEMIC SUPPORT DIRECTOR Principal Diagnosis Intractable pain, metastatic rectal cancer Discharge Exam Constitutional WD/WN, vitals as above Eyes + anicteric sclerae Neck trachea midline, no thyromegaly Respiratory normal respiratory effort; no cough Chest (Breasts) Chest: + vascular access device or port (anterior chest wall with port in place on left) Gastrointestinal (Abdomen) Inspection/Auscultation: + abdomen abnormal to inspection (ostomy bag in place with liquid green-brown stool) Musculoskeletal Extremities: extremities normal to inspection; no cyanosis and no clubbing Skin no rashes, warm and dry Neurologic moves all extremities and awake; no focal motor deficits Psychiatric A+Ox3, euthymic affect Lymphatic no lymphedema Discharge Data Allergies Allergy/AdvReac Type Severity Reaction Status Date / Time No Known Allergies Allergy Verified 02/25/22 15:12 Consultations 03/16/22 18:40 Consult Palliative Care Routine Hospital Course (1) Comfort measures only status: Plan for home with hospice today. Palliative care initiated morphine drip which is working very well for pain control Arrangements in place for home with hospice and morphine infusion at home 1mg/hr . Gave 2mg morphine IV x 1 just prior to discharge until he gets home infusion set up with hospice today Miralax daily (2) Cancer related pain: Rectal adenocarcinoma Rectal cancer, stage IV with metastasis to bone, liver, adrenal glands. Patient with diverting colostomy Patient had followed up with Dr. Keller, comfort measures/hospice goals and deferring surgical/chemotherapeutic options at this time He is continued on Eliquis at this time after discussions with his hospice provider Pain control as noted in ACADEMIC SUPPORT DIRECTOR (3) Atrial fibrillation status post cardioversion: Continued on metoprolol, Eliquis. Telemetry deferred in the setting of ACADEMIC SUPPORT DIRECTOR goals Will continue same meds while on hospice for now (4) CAD (coronary artery disease): no acute issues - On Eliquis, Metoprolol, but discontinued statin (5) Urinary retention: Flomax continued bladder scan prior to discharge to make sure no Joya needed (6) CHF (congestive heart failure): Metoprolol and daily Lasix continued. Lisinopril and spironolactone discontinued at prior discharge, patient remains normotensive with reasonable euvolemia Plan Dispo-dc to home with home hospice and IV morphine infusion through port today Total Time Total Time Spent Total Time Spent (In Minutes): 35 min Discharge Plan Discharge Items Patient Disposition: Hospice - Home Reason For Visit: PAIN CONTROL Discharge Diagnosis: cancer related pain Activity: As commented below Bathing: No limitations Bathing Comment: Keep port dry Exercise/Sports: As tolerated Non-emergency contact: Primary Care Provider Call non-emergency contact if: you have any medication questions Follow-up/Referrals: Short,Emma Vicente-Adina, DO [Primary Care Provider] - (You do not need to follow up with your PCP while on home hospice ) Diet: Regular Addtl Attending Provider Instructions: You are going home with hospice on a continuous morphine drip which is controlling your pain. Please continue this and it can be adjusted as needed with your hospice provider. You can continue on your other home meds as ordered. Pending Studies at Discharge: No Stand-Alone Forms: My [facility] Medications and DC Order Prescriptions: New dicyclomine 20 mg Tablet 20 mg PO TID Qty: 90 0RF Continued ondansetron HCl 8 mg tablet 8 mg PO Q8H PRN (Reason: NAUSEA/VOMITING) prochlorperazine maleate [Compazine] 10 mg tablet 10 mg PO Q6H PRN (Reason: NAUSEA/VOMITING) furosemide 40 mg tablet 40 mg PO QAM Qty: 90 3RF Eliquis 5 mg tablet 5 mg PO BID Qty: 180 3RF metoprolol succinate 200 mg tablet extended release 24 hr 200 mg PO QAM Qty: 90 3RF acetaminophen [Tylenol] 325 mg tablet 650 mg PO Q6H PRN (Reason: Pain) gabapentin 100 mg Capsule 100 mg PO BID Qty: 60 0RF polyethylene glycol 3350 17 gram/dose powder 17 g PO DAILY Qty: 119 0RF Rx Instructions: OTC lidocaine 5 % Ointment 1 applic EXT TID PRN (Reason: rectal pain) Qty: 30 0RF Rx Instructions: Please give bottle from hospital dexamethasone 2 mg Tablet 2 mg PO DAILY tamsulosin 0.4 mg capsule 0.4 mg PO BID Discontinued [id number] C-Mn [Glucosamine Chondroitin MaxStr] 500-400 mg capsule 1 cap PO DAILY atorvastatin 10 mg tablet 10 mg PO [id number] Label Comments: takes at hs Rx Instructions: TAKES MON, WED, & FRI. fentanyl 50 mcg/hr Patch 72 Hour 1 patch TRANSDERMAL Q72H morphine concentrate 100 mg/5 mL (20 mg/mL) solution 15 mg PO Q2H PRN (Reason: breakthrough pain, severe) Discharge Orders: Discharge Order (Routine); Ordered 03/22/22 Ordered By: Bess Navarro Admission Data Admit Date/Time: 03/18/22 13:26 Attending Provider: Bess Navarro Admit Provider: [place] Primary Care Provider: Emma Olivarez Other Providers: Lisa Shaw Coding Level of Care Code D/C DAY MANAGEMENT >30 MINS Diagnoses Comfort measures only status Z51.5 Cancer related pain G89.3 Atrial fibrillation status post cardioversion I48.91 CAD (coronary artery disease) I25.10 Urinary retention R33.9 CHF (congestive heart failure) I50.9
[2022-03-22] MEDS ORDERED: MoRPHine SULFATE 2 MG/ML CARP IV STA (12:06)
[2022-03-22 12:22] VITALS: BP 134/67; PULSE 78
[2022-03-22] MEDS ORDERED: HEPARIN 100 UNIT/ML 5ML FLUSH FLUSH STA (12:29)
[2022-03-22] MEDS: ACETAMINOPHEN 325 MG TAB PO PRN (12:34)
== END 2022-03-22 13:10 | disposition hospice, home (50) | DRG 948 ==
LOC: 3W 11:44 → ED 11:44 → SUATTDRO 14:41 → 3W 18:09 → SUATTDRO 03-18 13:26